=== PATIENT | female | born 1955 | race American Indian/Alaskan Native ===

== ENCOUNTER 2017-11-12 10:32 | Outpatient (CLI) | payer MEDICARE ==
--- NOTE | 2017-11-13 09:42 | Mammography Report ---
BILATERAL DIGITAL SCREENING MAMMOGRAM with CAD: 11/12/17 CLINICAL: Routine screening. COMPARISON:None available. However, a prior mammogram was apparently done at [facility]. FINDINGS: The breasts are heterogeneously dense, which may obscure small masses. A rightasymmetry on both views requires comparison with a prior mammogram or additional imaging.No architectural distortion or suspicious calcifications.The left breast is negative. IMPRESSION: Right focal asymmetry requiring further evaluation. BI-RADS CATEGORY: 0 -- Additional Evaluation Required RECOMMENDATION: Comparison with a previous mammogram. We will attempt to obtain a prior mammogram for comparison. If we do not obtain a prior mammogram within 30 days, a revised report will be issued recommending a recall for additional imaging. Please be advised that the patient should not schedule an appointment for return until adequate time (at least 2 weeks) has passed for us to obtain the prior mammogram. ACR BI-RADS MAMMOGRAPHIC CODES: 0 = Needs additional imaging evaluation; 1 = Negative; 2 = Benign; 3 = Probably benign; 4 = Suspicious; 5 = Malignant; 6 = Known biopsy-proven malignancy COMMENT: 1. Dense breast tissue, i.e., adenosis, fibrocystic changes, etc., may obscure an underlying neoplasm. 2. Approximately 10% of cancers are not detected with mammography. 3. A negative mammography report should not delay biopsy if a clinically suspicious mass is present. COMMENT: Patient follow-up letters are generated via our [employer] application.
== END 2017-11-12 10:33 | disposition home or self-care (01) ==
LOC: SPVWC 10:32
PROVIDERS: ATTEND Internal Medicine
DX: Z12.31 Encounter for screening mammogram for malignant neoplasm of breast (principal)
CPT/HCPCS: 77067

== ENCOUNTER 2017-12-10 09:38 | Outpatient (CLI) | payer MEDICARE ==
--- NOTE | 2017-12-10 10:22 | Mammography Report ---
RIGHT DIGITAL DIAGNOSTIC MAMMOGRAM : 12/10/17 09:38:00 CLINICAL: Recalled for asymmetry. COMPARISON:11/12/17 screening FINDINGS: Additional mammographic views were performed and are negative. IMPRESSION: Negative Mammogram. BI-RADS CATEGORY: 1 -- Negative RECOMMENDATION: Routine mammographic screening in one year. ACR BI-RADS MAMMOGRAPHIC CODES: 0 = Needs additional imaging evaluation; 1 = Negative; 2 = Benign; 3 = Probably benign; 4 = Suspicious; 5 = Malignant; 6 = Known biopsy-proven malignancy COMMENT: 1. Dense breast tissue, i.e., adenosis, fibrocystic changes, etc., may obscure an underlying neoplasm. 2. Approximately 10% of cancers are not detected with mammography. 3. A negative mammography report should not delay biopsy if a clinically suspicious mass is present. COMMENT: Patient follow-up letters are generated via our [employer] application.
== END 2017-12-10 09:39 | disposition home or self-care (01) ==
LOC: SPVWC 09:38
PROVIDERS: ATTEND Internal Medicine
DX: R92.8 Other abnormal and inconclusive findings on diagnostic imaging of breast (principal); I10 Essential (primary) hypertension; J44.1 Chronic obstructive pulmonary disease with (acute) exacerbation; Z87.891 Personal history of nicotine dependence

== ENCOUNTER 2018-03-01 14:18 | Inpatient (IN) | payer MEDICARE ==
[2018-03-01] MEDS ORDERED: ATROVENT IH ONE ×2 (14:41→14:44)
[2018-03-01] MEDS ORDERED: PROVENTIL IH ONE ×3 (14:41→14:44)
[2018-03-01] MEDS ORDERED: DUONEB *Not for PRN Use IH ONE (14:42)
--- NOTE | 2018-03-01 14:46 | Emergency Department Report ---
ED Shortness of Breath HPI - General Chief Complaint: Dyspnea/Respdistress Stated Complaint: YURIY Time Seen by Provider: 03/01/18 14:40 Source: patient, EMS Mode of arrival: Stretcher Limitations: No Limitations - History of Present Illness Initial Comments: Patient is 63 years old female with history of COPD. Patient presented to the ER complaining of shortness of breath and difficulty breathing cough nonproductive since last night. Patient is on oxygen at home 3 L/M. patient denied any fever, chest pain, nausea or vomiting. She stated that she's been using her albuterol breathing treatment but no improvement. MD Complaint: shortness of breath, cough - Related Data Home Medications Medication Instructions Recorded Confirmed Last Taken Budesoni/Formotero 160-4.5(Nf) 2 puff IH BID 07/31/15 07/31/15 1 Day Ago [Symbicort 160-4.5 (Nf)] ~07/30/15 Previous Rx's Medication Instructions Recorded Last Taken Type ALBUTEROL Inhaler (OR & NICU) 2 puff IH QID PRN 30 Days 04/29/15 1 Day Ago Rx [ProAir HFA Inhaler] inhalation ~07/30/15 dilTIAZem CD [Cardizem CD] 120 mg PO QDAY #30 capsule 04/29/15 07/31/15 Rx Doxycycline [Vibramycin CAP] 100 mg PO BID #12 capsule 08/03/15 Unknown Rx Prednisone [predniSONE 5 mg (6-Day 10 mg PO .TAPER #21 tab.ds.pk 08/03/15 Unknown Rx Pack, 21 Tabs)] Allergies Allergy/AdvReac Type Severity Reaction Status Date / Time codeine Allergy Unknown Verified 08/01/15 12:17 ED Review of Systems ROS: Stated complaint: YURIY Other details as noted in HPI Comment: All other systems reviewed and negative Constitutional: denies: chills, fever Respiratory: cough, orthopnea, shortness of breath, SOB with exertion, SOB at rest, wheezing. denies: stridor Cardiovascular: denies: chest pain, palpitations Gastrointestinal: denies: abdominal pain, nausea, vomiting, diarrhea, constipation, hematemesis Neurological: denies: headache, weakness ED Past Medical Hx - Past Medical History Hx Congestive Heart Failure: No Hx Diabetes: No Hx Asthma: No Hx COPD: Yes (Home O2 @ 3L) Additional medical history: Patient states she does not recall being given a diagnosis of SVT in the past. Patient states she was placed on diltiazem at one point, but thought it was for "blood clots." - Surgical History Additional Surgical History: 2: . Benign biopsy of left lung - Social History Smoking Status: Never Smoker Substance Use Type: None - Medications Home Medications: Home Medications Medication Instructions Recorded Confirmed Last Taken Type ALBUTEROL Inhaler (OR & NICU) 2 puff IH QID PRN 30 Days 04/29/15 07/31/15 1 Day Ago Rx [ProAir HFA Inhaler] inhalation ~07/30/15 dilTIAZem CD [Cardizem CD] 120 mg PO QDAY #30 capsule 04/29/15 07/31/15 Rx Budesoni/Formotero 160-4.5(Nf) 2 puff IH BID 07/31/15 07/31/15 1 Day Ago History [Symbicort 160-4.5 (Nf)] ~07/30/15 Doxycycline [Vibramycin CAP] 100 mg PO BID #12 capsule 08/03/15 Unknown Rx Prednisone [predniSONE 5 mg (6-Day 10 mg PO .TAPER #21 tab.ds.pk 08/03/15 Unknown Rx Pack, 21 Tabs)] ED Physical Exam - General Limitations: No Limitations General appearance: alert, in distress - Head Head exam: Present: atraumatic, normocephalic, normal inspection - Eye Eye exam: Present: normal appearance, PERRL - ENT ENT exam: Present: normal exam, normal orophraynx, mucous membranes moist - Neck Neck exam: Present: normal inspection, full ROM. Absent: tenderness, meningismus, lymphadenopathy, thyromegaly - Respiratory Respiratory exam: Present: respiratory distress, wheezes, rales, rhonchi, accessory muscle use, decreased breath sounds, prolonged expiratory. Absent: stridor - Cardiovascular Cardiovascular Exam: Present: regular rate, normal rhythm, normal heart sounds - GI/Abdominal GI/Abdominal exam: Present: soft, normal bowel sounds. Absent: distended, tenderness, guarding, rebound, rigid, organomegaly, mass, bruit, pulsatile mass , hernia - Extremities Exam Extremities exam: Present: normal inspection, full ROM, normal capillary refill. Absent: pedal edema, calf tenderness - Neurological Exam Neurological exam: Present: alert, oriented X3, CN II-XII intact, normal gait, reflexes normal - Skin Skin exam: Present: warm, intact, normal color ED Course Vital Signs 03/01/18 03/01/18 03/01/18 14:36 14:38 14:47 Temperature 97.6 F Pulse Rate 72 71 Pulse Rate [ 76 Anterior Bilateral Throughout] Respiratory 19 19 Rate Respiratory 22 Rate [Anterior Bilateral Throughout] Blood Pressure 159/74 Blood Pressure [Right] O2 Sat by Pulse 99 98 Oximetry 03/01/18 03/01/18 03/01/18 15:00 15:07 15:14 Temperature Pulse Rate 68 71 Pulse Rate [ Anterior Bilateral Throughout] Respiratory 18 24 18 Rate Respiratory Rate [Anterior Bilateral Throughout] Blood Pressure 141/53 141/53 Blood Pressure 141/53 [Right] O2 Sat by Pulse 100 100 100 Oximetry ED Medical Decision Making - Lab Data Result diagrams: 03/01/18 14:49 03/01/18 14:49 - Radiology Data Radiology results: image reviewed Chest x-ray is unremarkable. - Medical Decision Making Patient is 63 years old female with history of COPD. Patient presented to the ER complaining of shortness of breath and difficulty breathing cough nonproductive since last night. Patient is on oxygen at home 3 L/M. patient denied any fever, chest pain, nausea or vomiting. She stated that she's been using her albuterol breathing treatment but no improvement. Patient ABG showed a PCO2 of 121. Patient put on BiPAP. Patient stated that she is feeling better with oxygen saturation of 96%. I discussed the patient with Dr Lebron, he agreed to admit the patient to medical service. Critical Care Time: Yes Critical care time in (mins) excluding proc time.: 30 Critical care attestation.: If time is entered above; I have spent that time in minutes in the direct care of this critically ill patient, excluding procedure time. ED Disposition Clinical Impression: Acute respiratory failure, COPD with exacerbation Disposition: OP ADMIT IP TO THIS HOSP Is pt being admited?: Yes Condition: Stable Instructions: Chronic Obstructive Pulmonary Disease (ED)
[2018-03-01] MEDS ORDERED: SOLU-Medrol IV ONE (14:47)
[2018-03-01 15:29] LABS: Basophils % (Auto) 0.5 % (0.0-1.8); Eosinophils % (Auto) 1.4 % (0.0-4.3); Hematocrit 36.4 % (30.3-42.9); Hemoglobin 11.5 gm/dl (10.1-14.3); Lymphocytes # (Auto) 2.9 K/mm3 (1.2-5.4); Lymphocytes % (Auto) 24.9 % (13.4-35.0); Mean Corpuscular HGB Conc 32 % (30-34); Mean Corpuscular Hemoglobin 29 pg (28-32); Mean Corpuscular Volume 92 fl (79-97); Monocytes # (Auto) 1.3 K/mm3 (0.0-0.8); Monocytes % (Auto) 11.3 % (0.0-7.3); Platelet Count 193 K/mm3 (140-440); Red Blood Count 3.95 M/mm3 (3.65-5.03); Red Cell Distribution Width 13.4 % (13.2-15.2)
[2018-03-01 15:30] LABS: Basophils # (Auto) 0.1 K/mm3 (0.0-0.1); Eosinophils # (Auto) 0.2 K/mm3 (0.0-0.4)
[2018-03-01 16:07] LABS: Alanine Aminotransferase 14 units/L (7-56); Albumin 4.4 g/dL (3.9-5); BUN/Creatinine Ratio 50; Blood Urea Nitrogen 10 mg/dL (7-17); Calcium 9.8 mg/dL (8.4-10.2); Hemolysis Index 23
--- NOTE | 2018-03-01 16:19 | History and Physical Report ---
History of Present Illness Chief complaint: I cant breathe History of present illness: 63 YO Female with Severe Malnutrition, COPD, Chronic Respiratory Failure on 3L Home Oxygen presents to ED for evaluation. Pt states that she has experienced shortness of breath over the past 3 days with worsening symptoms over the past 1 day. Pt acknowledges dypsnea on exertion, as well as dypsnea at rest, decreased exercise tolerance, increased nonproductive cough, as well as increased use of her nebulizer over the past 3 days without improvement in symptoms. EMS notified, and upon arrival the patient was found to be in respiratory distress. Pt transported to [facility] for further care and evaluation. Pt seen and evaluated in ED and found to have Hypercapnic Respiratory Failure, and well as COPD Exacerbation. Pt initiated on NIPPV with significant improvement in symptoms. Pt Admitted to medical floor. Pt denies fever, chills, CP, Palpitations, Headache, Trauma, recent ill contacts, skin rash, or known exposure to COPD triggers. Past History Past Medical History: COPD, other (Respiratory failure, malnutrition') Past Surgical History: , Other (lung biopsy) Social history: single. denies: smoking, alcohol abuse, prescription drug abuse Family history: hypertension Medications and Allergies Allergies Allergy/AdvReac Type Severity Reaction Status Date / Time codeine Allergy Unknown Verified 08/01/15 12:17 Home Medications Medication Instructions Recorded Confirmed Last Taken Type ALBUTEROL Inhaler (OR & NICU) 2 puff IH QID PRN 30 Days 04/29/15 07/31/15 1 Day Ago Rx [ProAir HFA Inhaler] inhalation ~07/30/15 dilTIAZem CD [Cardizem CD] 120 mg PO QDAY #30 capsule 04/29/15 07/31/15 Rx Budesoni/Formotero 160-4.5(Nf) 2 puff IH BID 07/31/15 07/31/15 1 Day Ago History [Symbicort 160-4.5 (Nf)] ~07/30/15 Doxycycline [Vibramycin CAP] 100 mg PO BID #12 capsule 08/03/15 Unknown Rx Prednisone [predniSONE 5 mg (6-Day 10 mg PO .TAPER #21 tab.ds.pk 08/03/15 Unknown Rx Pack, 21 Tabs)] Review of Systems Constitutional: no weight loss, no weight gain, no fever, no chills Ears, nose, mouth and throat: no ear pain, no ear discharge, no tinnitis, no decreased hearing, no nose pain, no nasal congestion, no nasal discharge Breasts: no change in shape, no swelling, no mass Cardiovascular: shortness of breath, no chest pain, no orthopnea, no palpitations, no rapid/irregular heart beat, no syncope Respiratory: no cough, no cough with sputum, no excessive sputum, no hemoptysis Gastrointestinal: no nausea, no vomiting, no diarrhea, no constipation, no change in bowel habits Genitourinary Female: no pelvic pain, no flank pain, no menorrhagia, no dysuria , no urinary frequency, no urgency Rectal: no pain, no incontinence, no bleeding Musculoskeletal: no neck stiffness, no neck pain, no shooting arm pain, no arm numbness/tingling, no low back pain, no shooting leg pain Integumentary: no rash, no pruritis, no redness, no sores, no wounds Neurological: no paralysis, no weakness, no parathesias, no numbness, no tingling Psychiatric: no anxiety, no memory loss, no change in sleep habits, no sleep disturbances, no insomnia, no hypersomnia, no change in appetite, no change in libido Endocrine: no cold intolerance, no heat intolerance, no polyphagia, no excessive thirst, no polyuria Hematologic/Lymphatic: no easy bruising, no easy bleeding, no lymphadenopathy, no lymphedema Allergic/Immunologic: no urticaria, no allergic rhinitis, no wheezing, no persistent infections, no anaphylaxis, no angioedema Exam - Constitutional Vitals: Temp Pulse Resp BP Pulse Ox 97.6 F 71 18 141/53 100 03/01/18 14:38 03/01/18 15:07 03/01/18 15:14 03/01/18 15:07 03/01/18 15:14 General appearance: Present: mild distress, cachectic - EENT Eyes: Present: PERRL ENT: hearing intact, clear oral mucosa - Neck Neck: Present: supple, normal ROM - Respiratory Respiratory effort: normal Respiratory: bilateral: diminished, rhonchi - Cardiovascular Heart Sounds: Present: S1 & S2. Absent: rub, click - Extremities Extremities: pulses symmetrical, No edema Peripheral Pulses: within normal limits - Abdominal General gastrointestinal: Present: soft, non-tender, non-distended, normal bowel sounds Female genitourinary: Present: normal - Integumentary Integumentary: Present: clear, warm, dry - Musculoskeletal Musculoskeletal: generalized weakness - Psychiatric Psychiatric: appropriate mood/affect, intact judgment & insight - Neurologic Neurologic: CNII-XII intact, moves all extremities Results - Labs CBC & Chem 7: 03/01/18 14:49 03/01/18 14:49 Labs: Abnormal lab results 03/01/18 03/01/18 03/01/18 Range/Units 14:49 14:49 14:55 WBC 11.7 H (4.5-11.0) K/mm3 [place] % (Auto) 11.3 H (0.0-7.3) % [place] # 1.3 H (0.0-0.8) K/mm3 POC ABG pH 7.216 L (7.35-7.45) POC ABG pCO2 121.5 H (35-45) Chloride 92.2 L (98-107) mmol/L Carbon Dioxide 40 H (22-30) mmol/L Creatinine 0.2 L (0.7-1.2) mg/dL Glucose 142 H (65-100) mg/dL Assessment and Plan - Patient Problems (1) Acute respiratory failure Current Visit: Yes Status: Acute Plan to address problem: NIPPV, Supplemental oxygen, nebulizer therapy, Serial ABG. Pt symptoms improved with therapy, D dimer, (2) Severe malnutrition Current Visit: Yes Status: Acute Plan to address problem: Encourage increased protein intake, (3) COPD exacerbation Current Visit: No Status: Acute Plan to address problem: IV steroid therapy, supplemental oxygen, IV antibiotic therpay, NIPPV, ABG, chest x ray, supportive care. (4) DVT prophylaxis Current Visit: No Status: Acute Plan to address problem: SCD to BLE while in bed.
--- NOTE | 2018-03-01 17:25 | XRay Report ---
FINAL REPORT PROCEDURE: Chest. TECHNIQUE: Portable AP view. HISTORY: Dyspnea. COMPARISON: Chest 08/02/2015. FINDINGS: The heart size is normal. There is calcification in the aortic arch. The lungs are clear and severely hyperinflated. There are surgical johanne in the left lung. There are no pleural effusions. The soft tissues and regional skeleton are unremarkable. IMPRESSION: Severe COPD.
[2018-03-01] MEDS ORDERED: SODIUM CHLORIDE FLUSH SYRINGE 10 ML IV PRN (17:33)
[2018-03-01] MEDS ORDERED: ZOFRAN IV PRN (17:33)
[2018-03-01] MEDS ORDERED: PROVENTIL IH PRN (17:33)
[2018-03-01] MEDS: ZITHROMAX 500 MG in NACL 0.9% 250ML 250 ML IV SCH (19:18)
[2018-03-01] MEDS ORDERED: ZOFRAN ONE (19:28)
[2018-03-01] MEDS: PULMICORT IH SCH (19:41)
[2018-03-01] MEDS ORDERED: PULMICORT IH ONE (19:42)
[2018-03-01] MEDS ORDERED: BROVANA NEBU IH ONE (19:42)
[2018-03-01] MEDS: BROVANA NEBU IH SCH (19:42)
--- NOTE | 2018-03-01 20:56 | Cat Scan Report ---
FINAL REPORT PROCEDURE: CT angiogram chest with contrast. TECHNIQUE: Computerized tomographic angiography of the chest was performed after the IV injection of iodinated nonionic contrast including image processing. The image data was postprocessed using 2-dimensional multiplanar reformatted (MPR) and 3-dimensional (MIP and/or volume rendered) techniques. HISTORY: Respiratory failure. COMPARISON: CT angiogram chest 08/02/2015. FINDINGS: The trachea and central bronchi appear normal. There are severe cystic changes in both lungs. These are worse in the upper lobes. There is severe bullous change in the right lung apex. There are no signs of pneumonia. There are no pleural effusions. The thoracic aorta has a normal caliber without evidence of dissection. The pulmonary arteries enhance normally. There are no filling defects to indicate pulmonary embolism. There is no mediastinal adenopathy. The heart size is normal. The adrenal glands are not enlarged. There are coarse calcifications in the upper pole of the right kidney. The thoracic skeleton appears intact. IMPRESSION: No evidence of pulmonary embolism. Severe bolus emphysema.
[2018-03-01] MEDS: PEPCID PO SCH (21:28)
[2018-03-01] MEDS: SODIUM CHLORIDE FLUSH SYRINGE 10 ML IV SCH (21:37)
[2018-03-01] MEDS: SOLU-Medrol IV SCH (21:37)
[2018-03-01] MEDS ORDERED: NON-FORMULARY (Budesoni/Formotero 160-4.5(Nf) 2 PUFF) IH SCH (22:00)
[2018-03-02 05:43] LABS: Basophils % (Auto) 0.1 % (0.0-1.8); Hematocrit 33.3 % (30.3-42.9); Hemoglobin 10.8 gm/dl (10.1-14.3); Lymphocytes # (Auto) 0.6 K/mm3 (1.2-5.4); Lymphocytes % (Auto) 9.4 % (13.4-35.0); Mean Corpuscular HGB Conc 32 % (30-34); Mean Corpuscular Hemoglobin 29 pg (28-32); Mean Corpuscular Volume 91 fl (79-97); Monocytes # (Auto) 0.1 K/mm3 (0.0-0.8); Monocytes % (Auto) 1.2 % (0.0-7.3); Platelet Count 178 K/mm3 (140-440); Red Blood Count 3.66 M/mm3 (3.65-5.03); Red Cell Distribution Width 13.6 % (13.2-15.2)
[2018-03-02] MEDS: PULMICORT IH SCH ×2 (07:08→19:46)
[2018-03-02] MEDS: BROVANA NEBU IH SCH ×2 (07:09→19:46)
[2018-03-02] MEDS: CARDIZEM CD PO SCH (10:01)
[2018-03-02] MEDS: PEPCID PO SCH ×2 (10:01→21:44)
[2018-03-02] MEDS: SOLU-Medrol IV SCH ×2 (10:01→21:44)
[2018-03-02] MEDS: SODIUM CHLORIDE FLUSH SYRINGE 10 ML IV SCH ×2 (13:23→21:44)
--- NOTE | 2018-03-02 13:26 | Progress Note ---
Assessment and Plan / Acute on chronic respiratory failure on 3l home O2, worse due to COPD exacerbation NIPPV as needed, cont Supplemental oxygen, nebulizer therapy, / Severe malnutrition Encourage increased protein intake, /Acute COPD exacerbation IV steroid therapy, supplemental oxygen, IV antibiotic therpay, NIPPV as needed /DVT prophylaxis SCD to BLE while in bed. Radiological data; CTA chest: No evidence of pulmonary embolism. Severe bolus emphysema. Subjective Date of service: 03/02/18 Interval history: Pt seen and examined states SOB much better today Off Bipap this am Objective - Constitutional Vitals: Vital Signs - 12hr 03/02/18 03/02/18 03/02/18 01:30 01:40 01:50 Temperature Pulse Rate 67 70 66 Pulse Rate [ Anterior Bilateral Throughout] Pulse Rate [ From Monitor] Respiratory 16 18 16 Rate Respiratory Rate [Anterior Bilateral Throughout] Blood Pressure 109/67 109/67 109/67 O2 Sat by Pulse 98 100 99 Oximetry 03/02/18 03/02/18 03/02/18 02:00 02:10 02:20 Temperature Pulse Rate 65 69 72 Pulse Rate [ Anterior Bilateral Throughout] Pulse Rate [ From Monitor] Respiratory 18 18 16 Rate Respiratory Rate [Anterior Bilateral Throughout] Blood Pressure 109/67 112/69 112/69 O2 Sat by Pulse 99 99 100 Oximetry 03/02/18 03/02/18 03/02/18 02:30 02:40 02:50 Temperature Pulse Rate 71 73 75 Pulse Rate [ Anterior Bilateral Throughout] Pulse Rate [ From Monitor] Respiratory 18 18 18 Rate Respiratory Rate [Anterior Bilateral Throughout] Blood Pressure 112/69 112/69 112/69 O2 Sat by Pulse 100 99 100 Oximetry 03/02/18 03/02/18 03/02/18 03:00 03:10 03:20 Temperature Pulse Rate 70 68 71 Pulse Rate [ Anterior Bilateral Throughout] Pulse Rate [ From Monitor] Respiratory 18 19 15 Rate Respiratory Rate [Anterior Bilateral Throughout] Blood Pressure 102/69 102/69 102/69 O2 Sat by Pulse 100 100 99 Oximetry 03/02/18 03/02/18 03/02/18 03:30 03:40 03:50 Temperature Pulse Rate 65 69 68 Pulse Rate [ Anterior Bilateral Throughout] Pulse Rate [ From Monitor] Respiratory 20 17 18 Rate Respiratory Rate [Anterior Bilateral Throughout] Blood Pressure 102/69 102/69 102/69 O2 Sat by Pulse 98 98 99 Oximetry 03/02/18 03/02/18 03/02/18 04:00 04:10 04:16 Temperature Pulse Rate 67 70 66 Pulse Rate [ Anterior Bilateral Throughout] Pulse Rate [ From Monitor] Respiratory 18 18 18 Rate Respiratory Rate [Anterior Bilateral Throughout] Blood Pressure 103/61 103/61 103/61 O2 Sat by Pulse 100 100 99 Oximetry 03/02/18 03/02/18 03/02/18 04:20 04:30 04:40 Temperature 98.1 F Pulse Rate 72 73 70 Pulse Rate [ Anterior Bilateral Throughout] Pulse Rate [ From Monitor] Respiratory 16 14 17 Rate Respiratory Rate [Anterior Bilateral Throughout] Blood Pressure 103/61 102/69 102/69 O2 Sat by Pulse 99 100 100 Oximetry 03/02/18 03/02/18 03/02/18 04:50 05:00 05:10 Temperature Pulse Rate 71 67 69 Pulse Rate [ Anterior Bilateral Throughout] Pulse Rate [ From Monitor] Respiratory 17 9 L 18 Rate Respiratory Rate [Anterior Bilateral Throughout] Blood Pressure 102/69 115/70 115/70 O2 Sat by Pulse 100 100 100 Oximetry 03/02/18 03/02/18 03/02/18 05:20 05:30 05:40 Temperature Pulse Rate 66 68 69 Pulse Rate [ Anterior Bilateral Throughout] Pulse Rate [ From Monitor] Respiratory 18 18 18 Rate Respiratory Rate [Anterior Bilateral Throughout] Blood Pressure 115/70 115/70 115/70 O2 Sat by Pulse 100 100 100 Oximetry 03/02/18 03/02/18 03/02/18 05:50 06:00 06:10 Temperature Pulse Rate 67 67 66 Pulse Rate [ Anterior Bilateral Throughout] Pulse Rate [ From Monitor] Respiratory 14 13 13 Rate Respiratory Rate [Anterior Bilateral Throughout] Blood Pressure 115/70 101/67 101/67 O2 Sat by Pulse 99 99 97 Oximetry 03/02/18 03/02/18 03/02/18 06:20 06:30 06:40 Temperature Pulse Rate 62 65 57 L Pulse Rate [ Anterior Bilateral Throughout] Pulse Rate [ From Monitor] Respiratory 19 15 11 L Rate Respiratory Rate [Anterior Bilateral Throughout] Blood Pressure 101/67 101/67 101/67 O2 Sat by Pulse 99 100 100 Oximetry 03/02/18 03/02/18 03/02/18 06:50 07:00 07:05 Temperature Pulse Rate 63 56 L 67 Pulse Rate [ Anterior Bilateral Throughout] Pulse Rate [ From Monitor] Respiratory 13 18 19 Rate Respiratory Rate [Anterior Bilateral Throughout] Blood Pressure 101/67 101/67 131/73 O2 Sat by Pulse 100 100 100 Oximetry 03/02/18 03/02/18 03/02/18 07:10 07:20 07:25 Temperature Pulse Rate 68 86 Pulse Rate [ 78 99 H Anterior Bilateral Throughout] Pulse Rate [ From Monitor] Respiratory 18 19 Rate Respiratory 18 20 Rate [Anterior Bilateral Throughout] Blood Pressure 131/73 131/73 O2 Sat by Pulse 100 98 Oximetry 03/02/18 03/02/18 03/02/18 07:30 07:31 07:40 Temperature Pulse Rate 99 H 88 Pulse Rate [ Anterior Bilateral Throughout] Pulse Rate [ From Monitor] Respiratory 25 H 18 Rate Respiratory Rate [Anterior Bilateral Throughout] Blood Pressure 131/73 131/73 O2 Sat by Pulse 92 94 99 Oximetry 03/02/18 03/02/18 03/02/18 07:50 08:00 08:10 Temperature 97.7 F Pulse Rate 76 84 68 Pulse Rate [ Anterior Bilateral Throughout] Pulse Rate [ From Monitor] Respiratory 16 22 16 Rate Respiratory Rate [Anterior Bilateral Throughout] Blood Pressure 131/73 112/67 112/67 O2 Sat by Pulse 100 100 100 Oximetry 03/02/18 03/02/18 03/02/18 08:20 08:30 08:40 Temperature Pulse Rate 67 64 60 Pulse Rate [ Anterior Bilateral Throughout] Pulse Rate [ From Monitor] Respiratory 15 18 16 Rate Respiratory Rate [Anterior Bilateral Throughout] Blood Pressure 112/67 112/67 112/67 O2 Sat by Pulse 100 100 100 Oximetry 03/02/18 03/02/18 03/02/18 08:50 09:00 09:10 Temperature Pulse Rate 106 H 96 H 82 Pulse Rate [ Anterior Bilateral Throughout] Pulse Rate [ From Monitor] Respiratory 14 14 15 Rate Respiratory Rate [Anterior Bilateral Throughout] Blood Pressure 112/67 100/66 100/66 O2 Sat by Pulse 100 100 99 Oximetry 03/02/18 03/02/18 03/02/18 09:20 09:30 09:40 Temperature Pulse Rate 60 60 68 Pulse Rate [ Anterior Bilateral Throughout] Pulse Rate [ From Monitor] Respiratory 17 17 20 Rate Respiratory Rate [Anterior Bilateral Throughout] Blood Pressure 100/66 100/66 100/66 O2 Sat by Pulse 100 100 100 Oximetry 03/02/18 03/02/18 03/02/18 09:50 10:00 10:01 Temperature Pulse Rate 68 67 82 Pulse Rate [ Anterior Bilateral Throughout] Pulse Rate [ 85 From Monitor] Respiratory 17 17 Rate Respiratory Rate [Anterior Bilateral Throughout] Blood Pressure 100/66 101/57 101/58 O2 Sat by Pulse 100 100 Oximetry 03/02/18 03/02/18 03/02/18 10:10 10:20 10:30 Temperature Pulse Rate 67 64 67 Pulse Rate [ Anterior Bilateral Throughout] Pulse Rate [ From Monitor] Respiratory 16 17 16 Rate Respiratory Rate [Anterior Bilateral Throughout] Blood Pressure 101/57 101/57 101/57 O2 Sat by Pulse 100 100 100 Oximetry 03/02/18 03/02/18 03/02/18 10:40 10:50 11:00 Temperature Pulse Rate 68 63 62 Pulse Rate [ Anterior Bilateral Throughout] Pulse Rate [ From Monitor] Respiratory 19 15 19 Rate Respiratory Rate [Anterior Bilateral Throughout] Blood Pressure 101/57 101/57 102/48 O2 Sat by Pulse 100 100 100 Oximetry 03/02/18 03/02/18 03/02/18 11:10 11:20 11:30 Temperature Pulse Rate 65 63 64 Pulse Rate [ Anterior Bilateral Throughout] Pulse Rate [ From Monitor] Respiratory 18 19 17 Rate Respiratory Rate [Anterior Bilateral Throughout] Blood Pressure 102/48 102/48 102/48 O2 Sat by Pulse 100 100 100 Oximetry 03/02/18 03/02/18 03/02/18 11:40 11:50 12:00 Temperature 99.3 F Pulse Rate 66 81 84 Pulse Rate [ Anterior Bilateral Throughout] Pulse Rate [ From Monitor] Respiratory 15 20 19 Rate Respiratory Rate [Anterior Bilateral Throughout] Blood Pressure 102/48 102/48 107/53 O2 Sat by Pulse 100 100 99 Oximetry 03/02/18 03/02/18 03/02/18 12:10 12:20 12:30 Temperature Pulse Rate 73 76 80 Pulse Rate [ Anterior Bilateral Throughout] Pulse Rate [ From Monitor] Respiratory 16 15 20 Rate Respiratory Rate [Anterior Bilateral Throughout] Blood Pressure 107/53 107/53 107/53 O2 Sat by Pulse 100 100 100 Oximetry 03/02/18 03/02/18 03/02/18 12:40 12:50 13:00 Temperature Pulse Rate 83 77 75 Pulse Rate [ Anterior Bilateral Throughout] Pulse Rate [ From Monitor] Respiratory 16 19 18 Rate Respiratory Rate [Anterior Bilateral Throughout] Blood Pressure 107/53 107/53 113/50 O2 Sat by Pulse 100 100 100 Oximetry 03/02/18 13:10 Temperature Pulse Rate 79 Pulse Rate [ Anterior Bilateral Throughout] Pulse Rate [ From Monitor] Respiratory 20 Rate Respiratory Rate [Anterior Bilateral Throughout] Blood Pressure 113/50 O2 Sat by Pulse 100 Oximetry General appearance: Present: no acute distress, other (elderly female terry and thin ) - EENT Eyes: PERRL, EOM intact ENT: hearing intact, clear oral mucosa Ears: bilateral: normal - Neck Neck: supple, normal ROM - Respiratory Respiratory effort: normal Respiratory: bilateral: diminished - Cardiovascular Rhythm: regular Heart Sounds: Present: S1 & S2. Absent: gallop, rub Extremities: pulses intact, No edema, normal color, Full ROM - Gastrointestinal General gastrointestinal: Present: soft, non-tender, non-distended, normal bowel sounds - Integumentary Integumentary: clear, warm, dry - Musculoskeletal Musculoskeletal: 1, strength equal bilaterally - Neurologic Neurologic: moves all extremities - Psychiatric Psychiatric: memory intact, appropriate mood/affect, intact judgment & insight - Labs CBC & Chem 7: 03/02/18 05:24 03/01/18 14:49 Labs: Abnormal lab results 03/01/18 03/01/18 03/01/18 Range/Units 14:49 14:49 14:55 WBC 11.7 H (4.5-11.0) K/mm3 Lymph % (Auto) (13.4-35.0) % [place] % (Auto) 11.3 H (0.0-7.3) % Lymph # (1.2-5.4) K/mm3 [place] # 1.3 H (0.0-0.8) K/mm3 Seg Neutrophils % (40.0-70.0) % D-Dimer (0-234) ng/mlDDU POC ABG pH 7.216 L (7.35-7.45) POC ABG pCO2 121.5 H (35-45) POC ABG pO2 (80-105) Chloride 92.2 L (98-107) mmol/L Carbon Dioxide 40 H (22-30) mmol/L Creatinine 0.2 L (0.7-1.2) mg/dL Glucose 142 H (65-100) mg/dL 03/01/18 03/01/18 03/02/18 Range/Units 16:30 16:46 05:24 WBC (4.5-11.0) K/mm3 Lymph % (Auto) 9.4 L (13.4-35.0) % [place] % (Auto) (0.0-7.3) % Lymph # 0.6 L (1.2-5.4) K/mm3 [place] # (0.0-0.8) K/mm3 Seg Neutrophils % 89.3 H (40.0-70.0) % D-Dimer 420.58 H (0-234) ng/mlDDU POC ABG pH 7.316 L (7.35-7.45) POC ABG pCO2 96.4 H (35-45) POC ABG pO2 66 L (80-105) Chloride (98-107) mmol/L Carbon Dioxide (22-30) mmol/L Creatinine (0.7-1.2) mg/dL Glucose (65-100) mg/dL
[2018-03-02] MEDS: TYLENOL PO PRN ×2 (13:28→22:26)
[2018-03-02] MEDS: ZITHROMAX 500 MG in NACL 0.9% 250ML 250 ML IV SCH (18:04)
[2018-03-03] MEDS: BROVANA NEBU IH SCH ×2 (07:21→19:54)
[2018-03-03] MEDS: PULMICORT IH SCH ×2 (07:21→19:54)
[2018-03-03] MEDS: PEPCID PO SCH ×2 (09:52→21:32)
[2018-03-03] MEDS: CARDIZEM CD PO SCH (09:52)
[2018-03-03] MEDS: TYLENOL PO PRN (09:53)
[2018-03-03] MEDS: SODIUM CHLORIDE FLUSH SYRINGE 10 ML IV SCH ×2 (09:53→21:33)
[2018-03-03] MEDS: SOLU-Medrol IV SCH ×2 (09:53→21:32)
[2018-03-03] MEDS ORDERED: TYLENOL #3 PO PRN (15:39)
[2018-03-03] MEDS ORDERED: MORPHINE IV PRN (16:09)
--- NOTE | 2018-03-03 16:10 | Progress Note ---
Assessment and Plan / Acute on chronic respiratory failure on 3l home O2, worse due to COPD exacerbation NIPPV as needed, cont Supplemental oxygen, nebulizer therapy, / Severe malnutrition Encourage increased protein intake, /Acute COPD exacerbation IV steroid therapy, supplemental oxygen, IV antibiotic therapy, NIPPV as needed /HLD, on statin /DVT prophylaxis SCD to BLE while in bed. Brief History: 63 YO Female with Severe Malnutrition, COPD, Chronic Respiratory Failure on 3L Home Oxygen presents to ED c/o shortness of breath for last 3 days Radiological data; CTA chest: No evidence of pulmonary embolism. Severe bolus emphysema. Subjective Date of service: 03/03/18 Interval history: Pt seen and examined states SOB getting better but worses with exertion Off Bipap now, c/o headache Objective - Constitutional Vitals: Vital Signs - 12hr 03/03/18 03/03/18 03/03/18 04:10 04:20 04:30 Temperature Pulse Rate 46 L 47 L 49 L Pulse Rate [ Anterior Bilateral Throughout] Pulse Rate [ From Monitor] Respiratory 16 18 16 Rate Respiratory Rate [Anterior Bilateral Throughout] Respiratory Rate [Head] Blood Pressure 115/66 104/63 107/61 O2 Sat by Pulse 97 98 96 Oximetry 03/03/18 03/03/18 03/03/18 04:40 04:50 05:00 Temperature Pulse Rate 50 L 49 L 63 Pulse Rate [ Anterior Bilateral Throughout] Pulse Rate [ From Monitor] Respiratory 18 18 17 Rate Respiratory Rate [Anterior Bilateral Throughout] Respiratory Rate [Head] Blood Pressure 107/61 107/61 128/83 O2 Sat by Pulse 97 95 97 Oximetry 03/03/18 03/03/18 03/03/18 05:10 05:20 05:30 Temperature Pulse Rate 62 61 59 L Pulse Rate [ Anterior Bilateral Throughout] Pulse Rate [ From Monitor] Respiratory 18 20 18 Rate Respiratory Rate [Anterior Bilateral Throughout] Respiratory Rate [Head] Blood Pressure 128/83 128/83 128/83 O2 Sat by Pulse 95 96 99 Oximetry 03/03/18 03/03/18 03/03/18 05:40 05:50 06:00 Temperature Pulse Rate 60 63 75 Pulse Rate [ Anterior Bilateral Throughout] Pulse Rate [ From Monitor] Respiratory 20 18 15 Rate Respiratory Rate [Anterior Bilateral Throughout] Respiratory Rate [Head] Blood Pressure 133/65 133/65 113/75 O2 Sat by Pulse 99 95 97 Oximetry 1003/03/18 03/03/18 06:10 06:20 06:30 Temperature Pulse Rate 61 57 L 59 L Pulse Rate [ Anterior Bilateral Throughout] Pulse Rate [ From Monitor] Respiratory 22 17 13 Rate Respiratory Rate [Anterior Bilateral Throughout] Respiratory Rate [Head] Blood Pressure 113/75 113/75 115/66 O2 Sat by Pulse 97 97 95 Oximetry 03/03/18 03/03/18 03/03/18 06:40 06:50 07:00 Temperature Pulse Rate 78 94 H 69 Pulse Rate [ Anterior Bilateral Throughout] Pulse Rate [ From Monitor] Respiratory 18 21 16 Rate Respiratory Rate [Anterior Bilateral Throughout] Respiratory Rate [Head] Blood Pressure 115/66 115/66 127/70 O2 Sat by Pulse 95 89 97 Oximetry 03/03/18 03/03/18 03/03/18 07:10 07:20 07:22 Temperature Pulse Rate 64 88 Pulse Rate [ 72 Anterior Bilateral Throughout] Pulse Rate [ From Monitor] Respiratory 18 22 Rate Respiratory 20 Rate [Anterior Bilateral Throughout] Respiratory Rate [Head] Blood Pressure 127/70 127/70 O2 Sat by Pulse 97 90 Oximetry 03/03/18 03/03/18 03/03/18 07:30 07:34 07:40 Temperature Pulse Rate 67 70 Pulse Rate [ 74 Anterior Bilateral Throughout] Pulse Rate [ From Monitor] Respiratory 20 18 Rate Respiratory 16 Rate [Anterior Bilateral Throughout] Respiratory Rate [Head] Blood Pressure 127/70 111/75 O2 Sat by Pulse 100 100 Oximetry 03/03/18 03/03/18 03/03/18 07:47 07:50 08:00 Temperature 98.1 F Pulse Rate 71 65 Pulse Rate [ Anterior Bilateral Throughout] Pulse Rate [ 59 L From Monitor] Respiratory 17 18 Rate Respiratory Rate [Anterior Bilateral Throughout] Respiratory Rate [Head] Blood Pressure 111/75 109/53 O2 Sat by Pulse 100 100 Oximetry 03/03/18 03/03/18 03/03/18 08:10 08:20 08:30 Temperature Pulse Rate 100 H 76 67 Pulse Rate [ Anterior Bilateral Throughout] Pulse Rate [ From Monitor] Respiratory 17 19 18 Rate Respiratory Rate [Anterior Bilateral Throughout] Respiratory Rate [Head] Blood Pressure 109/53 109/53 103/60 O2 Sat by Pulse 100 99 100 Oximetry 03/03/18 03/03/18 03/03/18 08:40 08:50 09:00 Temperature Pulse Rate 66 65 74 Pulse Rate [ Anterior Bilateral Throughout] Pulse Rate [ From Monitor] Respiratory 17 21 19 Rate Respiratory Rate [Anterior Bilateral Throughout] Respiratory Rate [Head] Blood Pressure 103/60 103/60 101/54 O2 Sat by Pulse 100 100 100 Oximetry 03/03/18 03/03/18 03/03/18 09:10 09:20 09:30 Temperature Pulse Rate 63 67 64 Pulse Rate [ Anterior Bilateral Throughout] Pulse Rate [ From Monitor] Respiratory 22 17 18 Rate Respiratory Rate [Anterior Bilateral Throughout] Respiratory Rate [Head] Blood Pressure 101/54 101/54 101/54 O2 Sat by Pulse 100 100 100 Oximetry 03/03/18 03/03/18 03/03/18 09:40 09:50 09:52 Temperature Pulse Rate 69 74 77 Pulse Rate [ Anterior Bilateral Throughout] Pulse Rate [ From Monitor] Respiratory 15 22 Rate Respiratory Rate [Anterior Bilateral Throughout] Respiratory Rate [Head] Blood Pressure 108/49 108/49 108/49 O2 Sat by Pulse 100 100 Oximetry 03/03/18 03/03/18 03/03/18 10:00 10:10 10:20 Temperature Pulse Rate 85 69 75 Pulse Rate [ Anterior Bilateral Throughout] Pulse Rate [ From Monitor] Respiratory 15 17 17 Rate Respiratory Rate [Anterior Bilateral Throughout] Respiratory 20 Rate [Head] Blood Pressure 111/73 111/73 111/73 O2 Sat by Pulse 99 100 100 Oximetry 03/03/18 03/03/18 03/03/18 10:30 10:40 10:50 Temperature Pulse Rate 70 77 77 Pulse Rate [ Anterior Bilateral Throughout] Pulse Rate [ From Monitor] Respiratory 14 20 15 Rate Respiratory Rate [Anterior Bilateral Throughout] Respiratory Rate [Head] Blood Pressure 108/65 111/73 111/73 O2 Sat by Pulse 100 100 99 Oximetry 03/03/18 03/03/18 03/03/18 11:00 11:10 11:20 Temperature Pulse Rate 69 75 70 Pulse Rate [ Anterior Bilateral Throughout] Pulse Rate [ From Monitor] Respiratory 16 17 21 Rate Respiratory Rate [Anterior Bilateral Throughout] Respiratory Rate [Head] Blood Pressure 105/56 108/65 108/65 O2 Sat by Pulse 100 100 100 Oximetry 03/03/18 03/03/18 03/03/18 11:30 11:40 11:50 Temperature Pulse Rate 84 70 67 Pulse Rate [ Anterior Bilateral Throughout] Pulse Rate [ From Monitor] Respiratory 17 21 17 Rate Respiratory Rate [Anterior Bilateral Throughout] Respiratory Rate [Head] Blood Pressure 117/70 117/70 117/70 O2 Sat by Pulse 100 100 100 Oximetry 03/03/18 03/03/18 03/03/18 11:53 12:00 12:10 Temperature 98.7 F Pulse Rate 73 72 Pulse Rate [ Anterior Bilateral Throughout] Pulse Rate [ 64 From Monitor] Respiratory 23 22 Rate Respiratory Rate [Anterior Bilateral Throughout] Respiratory Rate [Head] Blood Pressure 117/70 117/60 O2 Sat by Pulse 100 100 Oximetry 03/03/18 03/03/18 03/03/18 12:20 12:30 12:40 Temperature Pulse Rate 92 H 84 73 Pulse Rate [ Anterior Bilateral Throughout] Pulse Rate [ From Monitor] Respiratory 24 22 15 Rate Respiratory Rate [Anterior Bilateral Throughout] Respiratory Rate [Head] Blood Pressure 117/60 122/58 122/58 O2 Sat by Pulse 99 99 99 Oximetry 03/03/18 03/03/18 03/03/18 12:50 13:00 13:10 Temperature Pulse Rate 74 68 80 Pulse Rate [ Anterior Bilateral Throughout] Pulse Rate [ From Monitor] Respiratory 16 16 22 Rate Respiratory Rate [Anterior Bilateral Throughout] Respiratory Rate [Head] Blood Pressure 122/58 114/58 114/58 O2 Sat by Pulse 100 100 100 Oximetry 03/03/18 03/03/18 03/03/18 13:20 13:30 13:40 Temperature Pulse Rate 77 87 93 H Pulse Rate [ Anterior Bilateral Throughout] Pulse Rate [ From Monitor] Respiratory 26 H 30 H 20 Rate Respiratory Rate [Anterior Bilateral Throughout] Respiratory Rate [Head] Blood Pressure 114/58 114/58 121/49 O2 Sat by Pulse 100 100 99 Oximetry 03/03/18 03/03/18 03/03/18 13:50 14:00 14:10 Temperature Pulse Rate 85 89 79 Pulse Rate [ Anterior Bilateral Throughout] Pulse Rate [ From Monitor] Respiratory 22 20 19 Rate Respiratory Rate [Anterior Bilateral Throughout] Respiratory Rate [Head] Blood Pressure 121/61 111/67 111/67 O2 Sat by Pulse 100 100 99 Oximetry 03/03/18 03/03/18 03/03/18 14:20 14:30 14:40 Temperature Pulse Rate 76 81 77 Pulse Rate [ Anterior Bilateral Throughout] Pulse Rate [ From Monitor] Respiratory 19 19 22 Rate Respiratory Rate [Anterior Bilateral Throughout] Respiratory Rate [Head] Blood Pressure 111/67 112/67 111/67 O2 Sat by Pulse 100 99 100 Oximetry 03/03/18 03/03/18 03/03/18 14:50 15:00 15:10 Temperature Pulse Rate 78 86 82 Pulse Rate [ Anterior Bilateral Throughout] Pulse Rate [ From Monitor] Respiratory 19 17 18 Rate Respiratory Rate [Anterior Bilateral Throughout] Respiratory Rate [Head] Blood Pressure 111/67 111/67 112/67 O2 Sat by Pulse 100 100 100 Oximetry 03/03/18 03/03/18 15:20 15:30 Temperature Pulse Rate 83 91 H Pulse Rate [ Anterior Bilateral Throughout] Pulse Rate [ From Monitor] Respiratory 19 18 Rate Respiratory Rate [Anterior Bilateral Throughout] Respiratory Rate [Head] Blood Pressure 112/67 115/73 O2 Sat by Pulse 100 100 Oximetry - Labs CBC & Chem 7: 03/02/18 05:24 03/01/18 14:49
[2018-03-03] MEDS: FIORICET PO PRN (16:41)
[2018-03-03] MEDS: MIRALAX 3350 PO SCH (19:19)
[2018-03-03] MEDS: DUONEB *Not for PRN Use IH SCH (19:54)
[2018-03-03] MEDS: PRAVACHOL PO SCH (21:31)
[2018-03-03] MEDS: COLACE PO SCH (21:32)
[2018-03-03] MEDS ORDERED: NON-FORMULARY (Simvastatin [Simvastatin] 40 MG) PO SCH (22:00)
[2018-03-04] MEDS: DUONEB *Not for PRN Use IH SCH ×4 (02:05→20:06)
[2018-03-04] MEDS: PULMICORT IH SCH ×2 (08:46→20:06)
[2018-03-04] MEDS: BROVANA NEBU IH SCH ×2 (08:47→20:06)
[2018-03-04] MEDS: LEVAQUIN 750MG/150ML 750 MG/150 ML BAG IV SCH (09:12)
[2018-03-04] MEDS: SOLU-Medrol IV SCH ×2 (09:12→21:31)
[2018-03-04] MEDS: COLACE PO SCH ×2 (09:13→21:31)
[2018-03-04] MEDS: MIRALAX 3350 PO SCH (09:13)
[2018-03-04] MEDS: PEPCID PO SCH ×2 (09:13→21:31)
[2018-03-04] MEDS: BABY ASPIRIN PO SCH (09:13)
[2018-03-04] MEDS: SODIUM CHLORIDE FLUSH SYRINGE 10 ML IV SCH ×2 (09:14→21:31)
[2018-03-04] MEDS: CARDIZEM CD PO SCH (09:15)
[2018-03-04] MEDS: FIORICET PO PRN ×2 (12:33→18:36)
--- NOTE | 2018-03-04 17:27 | Progress Note ---
Assessment and Plan Assessment and plan: 63 YO Female with Severe Malnutrition, COPD, Chronic Respiratory Failure on 3L Home Oxygen presents to ED c/o shortness of breath for last 3 days Acute on chronic respiratory failure on 3l home O2, worse due to COPD exacerbation NIPPV as needed, cont Supplemental oxygen, nebulizer therapy, Severe malnutrition Encourage increased protein intake, Acute COPD exacerbation IV steroid therapy, supplemental oxygen, IV antibiotic therapy, NIPPV as needed HLD, on statin DVT prophylaxis SCD to BLE while in bed. Radiological data; CTA chest: No evidence of pulmonary embolism. Severe bolus emphysema. History Interval history: Patient was seen and evaluated this morning, patient is complaining SOB, when I told her "I am going to discharge you" she said she feels SOB and couldn't finish sentences. Hospitalist Physical - Physical exam Narrative exam: Not in cardiopulmonary distress. The patient appeared well nourished and normally developed. Vital signs as documented. Head exam is unremarkable. No scleral icterus . Neck is without jugular venous distension, thyromegaly, or carotid bruits. Lungs are clear to auscultation. Cardiac exam reveals regular rate and Rhythm. First and second heart sounds normal. No murmurs, rubs or gallops. Abdominal exam reveals normal bowel sounds, no masses, no organomegaly and no aortic enlargement. Extremities are nonedematous and both femoral and pedal pulses are normal. [employer]: Alert and oriented 3. No focal weakness. - Constitutional Vitals: Temp Pulse Resp BP Pulse Ox 98.3 F 74 21 111/56 98 03/04/18 12:00 03/04/18 13:40 03/04/18 13:40 03/04/18 13:40 03/04/18 13:40 General appearance: Present: no acute distress, other (elderly female terry and thin ) Results - Labs CBC & Chem 7: 03/02/18 05:24 03/01/18 14:49 Labs: Laboratory Last Values WBC 6.0 K/mm3 (4.5-11.0) 03/02/18 05:24 RBC 3.66 M/mm3 (3.65-5.03) 03/02/18 05:24 Hgb 10.8 gm/dl (10.1-14.3) 03/02/18 05:24 Hct 33.3 % (30.3-42.9) 03/02/18 05:24 MCV 91 fl (79-97) 03/02/18 05:24 MCH 29 pg (28-32) 03/02/18 05:24 MCHC 32 % (30-34) 03/02/18 05:24 RDW 13.6 % (13.2-15.2) 03/02/18 05:24 Plt Count 178 K/mm3 (140-440) 03/02/18 05:24 Lymph % (Auto) 9.4 % (13.4-35.0) L 03/02/18 05:24 [place] % (Auto) 1.2 % (0.0-7.3) 03/02/18 05:24 Eos % (Auto) 0.0 % (0.0-4.3) 03/02/18 05:24 Baso % (Auto) 0.1 % (0.0-1.8) 03/02/18 05:24 Lymph # 0.6 K/mm3 (1.2-5.4) L 03/02/18 05:24 [place] # 0.1 K/mm3 (0.0-0.8) 03/02/18 05:24 Eos # 0.0 K/mm3 (0.0-0.4) 03/02/18 05:24 Baso # 0.0 K/mm3 (0.0-0.1) 03/02/18 05:24 Add Manual Diff Complete 03/01/18 14:49 Seg Neutrophils % 89.3 % (40.0-70.0) H 03/02/18 05:24 Seg Neutrophils # 5.3 K/mm3 (1.8-7.7) 03/02/18 05:24 D-Dimer 420.58 ng/mlDDU (0-234) H 03/01/18 16:30 POC ABG pH 7.316 (7.35-7.45) L 03/01/18 16:46 POC ABG pCO2 96.4 (35-45) H 03/01/18 16:46 POC ABG pO2 66 (80-105) L 03/01/18 16:46 POC ABG HCO3 49.2 03/01/18 16:46 POC ABG Total CO2 > 50 03/01/18 16:46 POC ABG O2 Sat 89 03/01/18 16:46 POC ABG Base Excess 23 03/01/18 16:46 FiO2 40 % 03/01/18 16:46 Sodium 142 mmol/L (137-145) 03/01/18 14:49 Potassium 4.2 mmol/L (3.6-5.0) 03/01/18 14:49 Chloride 92.2 mmol/L (98-107) L 03/01/18 14:49 Carbon Dioxide 40 mmol/L (22-30) H 03/01/18 14:49 Anion Gap 14 mmol/L 03/01/18 14:49 BUN 10 mg/dL (7-17) 03/01/18 14:49 Creatinine 0.2 mg/dL (0.7-1.2) L 03/01/18 14:49 Estimated GFR > 60 ml/min 03/01/18 14:49 BUN/Creatinine Ratio 50 % 03/01/18 14:49 Glucose 142 mg/dL (65-100) H 03/01/18 14:49 Calcium 9.8 mg/dL (8.4-10.2) 03/01/18 14:49 Total Bilirubin 0.30 mg/dL (0.1-1.2) 03/01/18 14:49 AST 22 units/L (5-40) 03/01/18 14:49 ALT 14 units/L (7-56) 03/01/18 14:49 Alkaline Phosphatase 50 units/L (35-129) 03/01/18 14:49 Troponin T < 0.010 ng/mL (0.00-0.029) 03/01/18 14:49 NT-Pro-B Natriuret Pep 79.83 pg/mL (0-900) 03/01/18 14:49 Total Protein 6.8 g/dL (6.3-8.2) 03/01/18 14:49 Albumin 4.4 g/dL (3.9-5) 03/01/18 14:49 Albumin/Globulin Ratio 1.8 % 03/01/18 14:49
[2018-03-04] MEDS: PRAVACHOL PO SCH (21:31)
[2018-03-05] MEDS: DUONEB *Not for PRN Use IH SCH ×3 (02:22→13:46)
[2018-03-05] MEDS: PULMICORT IH SCH (08:08)
[2018-03-05] MEDS: BROVANA NEBU IH SCH (08:08)
[2018-03-05] MEDS: SOLU-Medrol IV SCH (09:27)
[2018-03-05] MEDS: MIRALAX 3350 PO SCH (09:27)
[2018-03-05] MEDS: LEVAQUIN 750MG/150ML 750 MG/150 ML BAG IV SCH (09:27)
[2018-03-05] MEDS: BABY ASPIRIN PO SCH (09:28)
[2018-03-05] MEDS: PEPCID PO SCH (09:28)
[2018-03-05] MEDS: CARDIZEM CD PO SCH (09:28)
[2018-03-05] MEDS: COLACE PO SCH (09:28)
[2018-03-05] MEDS: SODIUM CHLORIDE FLUSH SYRINGE 10 ML IV SCH (09:29)
--- NOTE | 2018-03-05 09:29 | Discharge Summary ---
Providers - Providers Date of Admission: 03/01/18 17:33 Attending physician: BISI CASON MD Primary care physician: BAGGAGEMASTER Hospitalization Reason for admission: COPD exacerbation Condition: Stable Disposition: [id number]-06 HOME UNDER HOME HLTH Time spent for discharge: 32 minutes - Discharge Diagnoses (1) Acute and chronic respiratory failure Status: Acute (2) COPD with exacerbation Status: Acute (3) Severe malnutrition Status: Acute (4) Hyperlipidemia Status: Acute (5) Hypertension Status: Acute Qualifiers: Hypertension type: essential hypertension Qualified Code(s): I10 - Essential (primary) hypertension (6) Tobacco abuse Status: Acute Core Measure Documentation - Palliative Care Palliative Care/ Comfort Measures: Not Applicable - Core Measures Any of the following diagnoses?: none Exam - Physical Exam Narrative exam: Not in cardiopulmonary distress. The patient appeared well nourished and normally developed. Vital signs as documented. Head exam is unremarkable. No scleral icterus . Neck is without jugular venous distension, thyromegaly, or carotid bruits. Lungs are clear to auscultation. Cardiac exam reveals regular rate and Rhythm. First and second heart sounds normal. No murmurs, rubs or gallops. Abdominal exam reveals normal bowel sounds, no masses, no organomegaly and no aortic enlargement. Extremities are nonedematous and both femoral and pedal pulses are normal. 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 No focal weakness. - Constitutional Vitals: Temp Pulse Resp BP Pulse Ox 97.9 F 86 16 119/55 100 03/05/18 08:00 03/05/18 08:18 03/05/18 08:18 03/05/18 07:21 03/05/18 08:10 Plan Activity: no restrictions Weight Bearing Status: Full Weight Bearing Diet: low salt Special Instructions: home oxygen via Additional Instructions: follow up at [facility] in 1-2 weeks Follow up with: PRIMARY CAREMD [Primary Care Provider] - 7 Days Prescriptions: Butalb/Acetamin/Caff 50-325-40 [Fioricet] 1 tab PO Q4H PRN #20 tablet PRN Reason: Headache Docusate Sodium [Colace CAP] 100 mg PO BID #20 capsule Prednisone [predniSONE 10 mg (6-Day Pack, 21 Tabs)] 10 mg PO .TAPER #1 tab.ds.pk
[2018-03-05 11:17] VITALS: BP 101/58
== END 2018-03-05 13:15 | disposition home health service (06) | DRG 189 ==
LOC: ED 14:18 → IMCU 17:33
PROVIDERS: ADMIT Internal Medicine; ATTEND Internal Medicine
PROC: 4A033R1 Measurement of Arterial Saturation, Peripheral, Percutaneous Approach (ICD-10-PCS; principal; 2018-03-01)
PROC: 5A09357 Assistance with Respiratory Ventilation, Less than 24 Consecutive Hours, Continuous Positive Airway Pressure (ICD-10-PCS; 2018-03-01)
PROC: 5A09357 Assistance with Respiratory Ventilation, Less than 24 Consecutive Hours, Continuous Positive Airway Pressure (ICD-10-PCS; 2018-03-02)
PROC: 5A09357 Assistance with Respiratory Ventilation, Less than 24 Consecutive Hours, Continuous Positive Airway Pressure (ICD-10-PCS; 2018-03-03)
DX: J96.22 Acute and chronic respiratory failure with hypercapnia (principal); E43 Unspecified severe protein-calorie malnutrition; J44.1 Chronic obstructive pulmonary disease with (acute) exacerbation; E78.5 Hyperlipidemia, unspecified; Z68.20 Body mass index [BMI] 20.0-20.9, adult; Z88.5 Allergy status to narcotic agent; Z99.81 Dependence on supplemental oxygen; Z82.49 Family history of ischemic heart disease and other diseases of the circulatory system; Z72.0 Tobacco use
CPT/HCPCS: 36415; 71045; 71275; 80053; 82803; 83880; 84484; 85025; 85379; 93005; 93010; 94640; 94660; 94760; A9270-GY; J0456; J1956; J2405; J2920; J2930; J7050; Q9967

== ENCOUNTER 2018-06-02 18:52 | Inpatient (IN) | payer MEDICARE ==
[2018-06-02] MEDS ORDERED: NACL 0.9% 1000 ML 1,000 ML IV ONE (19:50)
[2018-06-02] MEDS ORDERED: SOLU-Medrol IV ONE (20:09)
[2018-06-02] MEDS ORDERED: PROVENTIL IH ONE (20:09)
[2018-06-02] MEDS ORDERED: ATROVENT IH ONE (20:09)
[2018-06-02] MEDS ORDERED: TYLENOL PO ONE (20:13)
--- NOTE | 2018-06-02 20:14 | Emergency Department Report ---
ED Shortness of Breath HPI - General Chief Complaint: Dyspnea/Respdistress Stated Complaint: DIFFICULTY BREATHING Time Seen by Provider: 06/02/18 20:05 Source: EMS Mode of arrival: Stretcher Limitations: No Limitations, Language Barrier - History of Present Illness Initial Comments: Patient is a 63-year-old female with past history of COPD who is complaining of shortness of breath for the last 2 days. Patient has had a mild cough is nonproductive for approximately 1 month became very short of breath yesterday. Patient does have fatigue. Patient denies any nausea vomiting. Patient does state that she has had some episodes where she has feels hot but denies chills. Patient is unsure if she's had a fever. Paramedics were called this evening to come check on the patient. Patient only just uses her portable inhaler and does not use a nebulizer machine although she has one at home. Paramedics helped her take a breathing treatment this evening before arrival. - Related Data Home Medications Medication Instructions Recorded Confirmed Last Taken Aspirin [Aspirin BABY CHEW TAB] 81 mg PO QDAY 03/01/18 03/01/18 Unknown Simvastatin 40 mg PO QHS 03/01/18 03/01/18 Unknown Previous Rx's Medication Instructions Recorded Last Taken Type dilTIAZem CD [Cardizem CD] 120 mg PO QDAY #30 capsule 04/29/15 07/31/15 Rx Butalb/Acetamin/Caff 50-325-40 1 tab PO Q4H PRN #20 tablet 03/05/18 Unknown Rx [Fioricet] Docusate Sodium [Colace CAP] 100 mg PO BID #20 capsule 03/05/18 Unknown Rx Prednisone [predniSONE 10 mg 10 mg PO .TAPER #1 tab.ds.pk 03/05/18 Unknown Rx (6-Day Pack, 21 Tabs)] Allergies Allergy/AdvReac Type Severity Reaction Status Date / Time codeine Allergy Unknown Verified 08/01/15 12:17 ED Review of Systems ROS: Stated complaint: DIFFICULTY BREATHING Other details as noted in HPI Comment: All other systems reviewed and negative ED Past Medical Hx - Past Medical History Hx Congestive Heart Failure: No Hx Diabetes: No Hx Asthma: No Hx COPD: Yes (Home O2 @ 3L) Additional medical history: Patient states she does not recall being given a diagnosis of SVT in the past. Patient states she was placed on diltiazem at one point, but thought it was for "blood clots." - Surgical History Additional Surgical History: 2: . Benign biopsy of left lung - Social History Smoking Status: Never Smoker Substance Use Type: None - Medications Home Medications: Home Medications Medication Instructions Recorded Confirmed Last Taken Type dilTIAZem CD [Cardizem CD] 120 mg PO QDAY #30 capsule 04/29/15 03/01/18 07/31/15 Rx Aspirin [Aspirin BABY CHEW TAB] 81 mg PO QDAY 03/01/18 03/01/18 Unknown History Simvastatin 40 mg PO QHS 03/01/18 03/01/18 Unknown History Butalb/Acetamin/Caff 50-325-40 1 tab PO Q4H PRN #20 tablet 03/05/18 Unknown Rx [Fioricet] Docusate Sodium [Colace CAP] 100 mg PO BID #20 capsule 03/05/18 Unknown Rx Prednisone [predniSONE 10 mg 10 mg PO .TAPER #1 tab.ds.pk 03/05/18 Unknown Rx (6-Day Pack, 21 Tabs)] ED Physical Exam - General Limitations: No Limitations, Language Barrier General appearance: alert, in no apparent distress - Head Head exam: Present: atraumatic, normocephalic - Eye Eye exam: Present: normal appearance, PERRL, EOMI - ENT ENT exam: Present: mucous membranes moist - Neck Neck exam: Present: normal inspection - Respiratory Respiratory exam: Present: normal lung sounds bilaterally, decreased breath sounds (patient with shallow breath sounds and is mildly tachypnea). Absent: respiratory distress, wheezes, rales, rhonchi, stridor - Cardiovascular Cardiovascular Exam: Present: regular rate, normal rhythm, normal heart sounds. Absent: systolic murmur, diastolic murmur, rubs, gallop - GI/Abdominal GI/Abdominal exam: Present: soft, normal bowel sounds - Extremities Exam Extremities exam: Present: normal inspection - Back Exam Back exam: Present: normal inspection - Neurological Exam Neurological exam: Present: alert, oriented X3 - Psychiatric Psychiatric exam: Present: normal affect, normal mood - Skin Skin exam: Present: warm, dry, intact, normal color. Absent: rash ED Course Vital Signs 06/02/18 06/02/18 06/02/18 19:24 19:31 19:41 Temperature 99.2 F Pulse Rate 107 H Respiratory 23 Rate Blood Pressure 139/78 O2 Sat by Pulse 97 97 98 Oximetry 06/02/18 06/02/18 06/02/18 19:45 20:01 20:15 Temperature Pulse Rate 99 H 114 H 103 H Respiratory 16 21 20 Rate Blood Pressure 139/78 163/85 163/85 O2 Sat by Pulse 97 98 98 Oximetry 06/02/18 06/02/18 06/02/18 20:31 20:45 21:01 Temperature Pulse Rate 97 H 107 H 103 H Respiratory 18 19 19 Rate Blood Pressure 163/85 163/85 163/85 O2 Sat by Pulse 98 98 100 Oximetry 06/02/18 06/02/18 06/02/18 21:10 21:15 21:31 Temperature 98.7 F Pulse Rate 97 H 94 H Respiratory 22 19 Rate Blood Pressure 163/85 163/85 O2 Sat by Pulse 98 99 Oximetry 06/02/18 06/02/18 21:45 22:01 Temperature Pulse Rate 97 H 95 H Respiratory 20 16 Rate Blood Pressure 163/85 96/41 O2 Sat by Pulse 99 98 Oximetry ED Medical Decision Making - Lab Data Result diagrams: 06/02/18 20:09 06/02/18 20:09 - Medical Decision Making [facility] [address] [place] [address] XRay Report Signed Patient: NORM TORRES MR#: [id number] : 1955 Acct:[id number] Age/Sex: 63 / F ADM Date: 06/02/18 Loc: ED Attending Dr: Ordering Physician: NILO RHODES MD Date of Service: 06/02/18 Procedure(s): XR chest 1V ap Accession Number(s): [id number] cc: NILO RHODES MD Fluoro Time In Minutes: FINAL REPORT PROCEDURE: XR CHEST 1V AP TECHNIQUE: Chest radiograph anteroposterior view. CPT 69332 HISTORY: Dyspnea COMPARISON: Prior chest x-ray 03/01/2018 FINDINGS: The heart is magnified due to projection, appears to be normal size. Emphysematous changes and fibrosis again visualized bilaterally. Emphysema greatest in the upper lung yip. Postsurgical changes are seen on the left. A suture line is visualized. In the midportion of the left chest there is new nodularity visualized measuring approximately 1.7 x 1.6 centimeters.. I MPRESSION: The COPD with emphysema and fibrosis. Postsurgical changes left upper lung field. New nodularity seen in the region of previous surgery measuring 1.7 x 1.6 centimeters.. I cannot exclude developing pulmonary nodule. CT of the chest recommended for further evaluation.. Transcribed By: ANATOLIY Dictated By: BELA CARLSON MD Electronically Authenticated By: BELA CARLSON MD Signed Date/Time: 06/02/182135 DD/ 37 TD/TT: 06/02/182137 Per my exam there is such extensive lung findings that it may be impossible to determine which of these lung findings are fibrotic in nature and which may be infectious in nature. Critical Care Time: Yes (30) Critical care attestation.: If time is entered above; I have spent that time in minutes in the direct care of this critically ill patient, excluding procedure time. ED Disposition Clinical Impression: Hypokalemia Pneumonia Qualifiers: Pneumonia type: due to unspecified organism Laterality: unspecified laterality Lung location: unspecified part of lung Qualified Code(s): J18.9 - Pneumonia, unspecified organism Sepsis Qualifiers: Sepsis type: sepsis due to unspecified organism Qualified Code(s): A41.9 - Sepsis, unspecified organism Disposition: OP ADMIT IP TO THIS HOSP Is pt being admited?: Yes Does the pt Need Aspirin: No Condition: Stable Instructions: Bacterial Pneumonia (ED) Referrals: PRIMARY CAREMD [Primary Care Provider] - 3-5 Days Time of Disposition: 22:39
[2018-06-02 20:19] LABS: Hematocrit 40.3 % (30.3-42.9); Hemoglobin 12.8 gm/dl (10.1-14.3); Mean Corpuscular HGB Conc 32 % (30-34); Mean Corpuscular Volume 89 fl (79-97); Platelet Count 214 K/mm3 (140-440); Red Blood Count 4.51 M/mm3 (3.65-5.03); Red Cell Distribution Width 14.7 % (13.2-15.2)
[2018-06-02 20:43] LABS: Alanine Aminotransferase 18 units/L (7-56); Albumin 4.1 g/dL (3.9-5); BUN/Creatinine Ratio 30; Blood Urea Nitrogen 12 mg/dL (7-17); Calcium 8.9 mg/dL (8.4-10.2); Hemolysis Index 21
--- NOTE | 2018-06-02 21:36 | XRay Report ---
FINAL REPORT PROCEDURE: XR CHEST 1V AP TECHNIQUE: Chest radiograph anteroposterior view. CPT 85543 HISTORY: Dyspnea COMPARISON: Prior chest x-ray 03/01/2018 FINDINGS: The heart is magnified due to projection, appears to be normal size. Emphysematous changes and fibros is again visualized bilaterally. Emphysema greatest in the upper lung yip. Postsurgical changes ar e seen on the left. A suture line is visualized. In the midportion of the left chest there is new nod ularity visualized measuring approximately 1.7 x 1.6 centimeters.. IMPRESSION: The COPD with emphysema and fibrosis. Postsurgical changes left upper lung field. New nodularity seen in the region of previous surgery bruna suring 1.7 x 1.6 centimeters.. I cannot exclude developing pulmonary nodule. CT of the chest recommen ded for further evaluation..
[2018-06-02 21:37] LABS: Anisocytosis 1+; Band Neutrophils # (Manual) 0.5 K/mm3; Basophils % (Manual) 0 % (0.0-1.8); Eosinophils % (Manual) 0 % (0.0-4.3); Platelet Estimate Consistent w Auto; Poikilocytosis 1+; Total Cells Counted 100
[2018-06-02] MEDS ORDERED: NACL 0.9% 1000 ML IV ONE (21:51)
[2018-06-02] MEDS: ROCEPHIN/NS 2 GM/100 ML 2 GM/100 ML BAG IV SCH (22:40)
[2018-06-02] MEDS: ZITHROMAX 500 MG in NACL 0.9% 250ML 250 ML IV SCH (23:10)
[2018-06-02] MEDS ORDERED: ZOFRAN IV PRN (23:54)
[2018-06-02] MEDS ORDERED: TYLENOL PO PRN (23:55)
[2018-06-03 00:41] LABS: Creatine Kinase MB 3.3 ng/mL (0.0-4.0)
--- NOTE | 2018-06-03 05:21 | History and Physical Report ---
CHIEF COMPLAINT: Shortness of breath. HISTORY OF PRESENT ILLNESS: The patient is a 63-year-old female with past history of COPD, who has been feeling weak, going on for some time and the patient developed shortness of breath associated with nonproductive cough. There is no history of chest pain. There is no definite history of fever, nausea or vomiting. The patient said that this shortness of breath became progressively worse, and the patient said that she was using her portable inhaler without much help. PAST MEDICAL HISTORY: Pertinent for COPD, home O2 dependent. Also the patient states she has a past history of questionable supraventricular tachycardia. PAST SURGICAL HISTORY: Pertinent for and biopsy of the left lung. FAMILY HISTORY: Noncontributory. SOCIAL HISTORY: The patient does not smoke, does not drink alcohol, and does not use illicit drugs. MEDICATIONS: The patient is on Cardizem 120 mg by mouth daily, aspirin 81 mg by mouth daily, simvastatin 40 mg at bedtime, Fioricet 1 tablet by mouth every 4 hours as needed for pain, docusate sodium 100 mg by mouth twice daily, and prednisone 10 mg in tapering doses with 21 tablets. ALLERGIES: THE PATIENT IS ALLERGIC TO CODEINE. REVIEW OF SYSTEMS: CONSTITUTIONAL: There is mild fever, but no chills, no diaphoresis. HEENT: There is no headache or sore throat. CARDIOVASCULAR SYSTEM: There is no chest pain or orthopnea. RESPIRATORY SYSTEM: Shortness of breath is present. Cough is present. GASTROINTESTINAL SYSTEM: There is no nausea, no vomiting, no abdominal pain, diarrhea or constipation. NEUROLOGICAL SYSTEM: There is no numbness, no dizziness, no altered mental status. MUSCULOSKELETAL SYSTEM: There is no joint pain or swelling. DERMATOLOGICAL SYSTEM: There is no skin rash or itching. GENITOURINARY SYSTEM: There is no dysuria, hematuria or flank pain. Rest of system review is normal. PHYSICAL EXAMINATION: GENERAL: At the time of exam, the patient was found to be alert, oriented x 3, and in mild distress due to shortness of breath. INITIAL VITAL SIGNS: Showed temperature of 99.2 degrees Fahrenheit, pulse of 107, respiration 23, blood pressure 139/78, and O2 sat of 97% on room air. HEENT: Showed pupils to be equal, round, reactive to light and accommodating. Extraocular muscles are intact. NECK: Supple with no JVD or carotid bruit. CARDIOVASCULAR SYSTEM: Showed normal first and second heart sounds with no gallops or murmurs. RESPIRATORY SYSTEM: Showed reduced air entry on both sides of the lungs with no abnormal breath sounds. GASTROINTESTINAL SYSTEM: Showed abdomen to be full, soft, nontender with no organomegaly or rigidity. NEUROLOGICAL SYSTEM: Showed no focal deficit. MUSCULOSKELETAL SYSTEM: Showed no joint swelling or tenderness. DERMATOLOGICAL SYSTEM: Showed no skin rash. GENITOURINARY SYSTEM: Showing no costovertebral angle tenderness. PERTINENT LABORATORY DATA AND IMAGING STUDIES: The patient had chest x-ray done that shows evidence of COPD with emphysema and fibrosis. There is also finding of postsurgical changes in the left upper lung field and new nodularity seen in the region of the previous surgery, measuring about 1.7 x 1.6 cm and the radiologist said he cannot exclude developing pulmonary nodule. CT of the chest is recommended for further evaluation. Lab results: The patient had CBC done with elevated white count of 24,500 and normal hemoglobin with normal hematocrit with CBC differential showing elevated segmented neutrophil count of 86%. The patient's chemistry shows elevated CO2 of 37 with normal BUN and unremarkable creatinine. The patient's cardiac enzymes were unremarkable. DIAGNOSIS: Chronic obstructive pulmonary disease exacerbation. PLAN OF ACTION: 1. The patient will be admitted to medical surgical [facility]. 2. The patient will be on IV Rocephin 1 gram daily and IV Zithromax 500 mg daily. 3. The patient will be on IV Solu-Medrol 60 mg every 8 hours and will be on DuoNeb q.i.d. 4. The patient will have cardiac enzymes checked q.6 hours x 2 levels. 5. The patient's diet will be low sodium diet or 2 g sodium diet. 6. The patient will be on p.r.n. medications like Tylenol 650 mg by mouth every 4 hours for fever and headache and IV Zofran 4 mg every 8 hours for nausea and vomiting. 7. The patient will have pulmonary consult with Dr. Patel for suspicious developing new nodule in the lungs. JOB# [id number] OCN/NTS
[2018-06-03] MEDS: SOLU-Medrol IV SCH ×3 (05:29→22:21)
[2018-06-03] MEDS ORDERED: DUONEB *Not for PRN Use IH SCH (08:00)
[2018-06-03] MEDS ORDERED: PROVENTIL IH PRN (09:37)
[2018-06-03] MEDS: BABY ASPIRIN PO SCH (10:07)
[2018-06-03] MEDS: COLACE PO SCH ×2 (10:09→22:22)
[2018-06-03] MEDS: HEPARIN SUB-Q SCH ×2 (10:09→22:20)
[2018-06-03] MEDS: CARDIZEM CD PO SCH ×2 (10:09→18:47)
[2018-06-03] MEDS: BROVANA NEBU IH SCH ×2 (10:27→20:04)
[2018-06-03] MEDS: PULMICORT IH SCH ×2 (10:27→20:04)
[2018-06-03 11:44] LABS: Bilirubin,Urine NEG (Negative); Blood,Urine MOD (Negative); Color,Urine Straw (Yellow); Protein,Urine <15 mg/dL mg/dL (Negative); Urobilinogen,Urine < 2.0 mg/dL (<2.0)
[2018-06-03] MEDS: DUONEB *Not for PRN Use IH SCH ×2 (14:07→20:35)
[2018-06-03] MEDS ORDERED: BENADRYL PO ONE (21:05)
[2018-06-03] MEDS ORDERED: NON-FORMULARY (Simvastatin [Simvastatin] 40 MG) PO SCH (22:00)
[2018-06-03] MEDS: PRAVACHOL PO SCH (22:23)
[2018-06-03] MEDS: ROCEPHIN/NS 2 GM/100 ML 2 GM/100 ML BAG IV SCH (22:24)
[2018-06-03] MEDS: ZITHROMAX 500 MG in NACL 0.9% 250ML 250 ML IV SCH (22:24)
[2018-06-04] MEDS: SOLU-Medrol IV SCH ×3 (06:09→22:53)
--- NOTE | 2018-06-04 07:22 | Progress Note ---
Assessment and Plan Acute on chronic respiratory failure COPD exacerbation SIRS, due to COPD exacerbation HTN, moderately control tobacco abuse HLD, on statin - cont to monitor at medical unit - cont supplemental O2, scheduled nebs, empiric steroid, empiric abx - resumed home meds for HTN, cont statin - DVT Px Subjective Date of service: 06/03/18 Interval history: patient seen and examined c/o SOB even on rest, c/o cough denies COugh, tolerating diet Objective - Constitutional Vitals: Vital Signs - 12hr 06/03/18 06/03/18 06/03/18 20:05 20:06 20:33 Temperature Pulse Rate Pulse Rate [ 88 88 Anterior Bilateral Throughout] Respiratory Rate Respiratory 20 20 Rate [Anterior Bilateral Throughout] Blood Pressure O2 Sat by Pulse 97 Oximetry 06/03/18 06/04/18 06/04/18 22:00 00:13 05:23 Temperature 97.7 F 98.0 F Pulse Rate 83 58 L Pulse Rate [ Anterior Bilateral Throughout] Respiratory 16 20 20 Rate Respiratory Rate [Anterior Bilateral Throughout] Blood Pressure 96/48 104/55 O2 Sat by Pulse 99 100 Oximetry General appearance: Present: no acute distress - EENT Eyes: PERRL, EOM intact ENT: hearing intact, clear oral mucosa Ears: bilateral: normal - Neck Neck: supple, normal ROM - Respiratory Respiratory effort: labored Respiratory: bilateral: diminished, rales - Cardiovascular Rhythm: regular Heart Sounds: Present: S1 & S2. Absent: gallop, rub Extremities: pulses intact, No edema, normal color, Full ROM - Gastrointestinal General gastrointestinal: Present: soft, non-tender, non-distended, normal bowel sounds - Integumentary Integumentary: clear, warm, dry - Musculoskeletal Musculoskeletal: 1, strength equal bilaterally - Neurologic Neurologic: moves all extremities - Psychiatric Psychiatric: memory intact, appropriate mood/affect, intact judgment & insight - Labs CBC & Chem 7: 06/04/18 07:40 06/04/18 07:40 Labs: Abnormal lab results 06/03/18 06/03/18 06/04/18 Range/Units 05:42 22:19 06:24 POC Glucose 196 H 122 H (70-105) CK-MB (CK-2) 6.0 H (0.0-4.0) ng/mL CK-MB (CK-2) Rel Index 6.3 H (0-4)
[2018-06-04 07:52] LABS: Hematocrit 31.4 % (30.3-42.9); Hemoglobin 10.2 gm/dl (10.1-14.3); Mean Corpuscular HGB Conc 32 % (30-34); Mean Corpuscular Volume 88 fl (79-97); Platelet Count 175 K/mm3 (140-440); Red Blood Count 3.57 M/mm3 (3.65-5.03); Red Cell Distribution Width 14.4 % (13.2-15.2)
[2018-06-04 08:05] LABS: BUN/Creatinine Ratio 47; Blood Urea Nitrogen 14 mg/dL (7-17); Calcium 8.6 mg/dL (8.4-10.2); Hemolysis Index 21
[2018-06-04] MEDS: PULMICORT IH SCH ×2 (09:37→20:34)
[2018-06-04] MEDS: BROVANA NEBU IH SCH ×2 (09:37→20:34)
[2018-06-04] MEDS: DUONEB *Not for PRN Use IH SCH ×3 (09:37→20:34)
[2018-06-04] MEDS: HEPARIN SUB-Q SCH ×2 (10:51→22:52)
[2018-06-04] MEDS: COLACE PO SCH ×2 (10:51→22:53)
[2018-06-04] MEDS: BABY ASPIRIN PO SCH (10:52)
[2018-06-04] MEDS: CARDIZEM CD PO SCH (12:07)
--- NOTE | 2018-06-04 14:38 | Progress Note ---
Assessment and Plan Acute on chronic respiratory failure COPD exacerbation SIRS, due to COPD exacerbation HTN, moderately control tobacco abuse HLD, on statin - cont to monitor at medical unit - cont supplemental O2, scheduled nebs, empiric steroid, empiric abx - resumed home meds for HTN, cont statin - DVT Px Subjective Date of service: 06/04/18 Interval history: patient seen and examined c/o SOB even on rest but slightly improved, c/o cough denies COugh, tolerating diet Objective - Exam Narrative Exam: General appearance: Present: no acute distress - EENT Eyes: PERRL, EOM intact ENT: hearing intact, clear oral mucosa Ears: bilateral: normal - Neck Neck: supple, normal ROM - Respiratory Respiratory effort: labored Respiratory: bilateral: diminished, rales - Cardiovascular Rhythm: regular Heart Sounds: Present: S1 & S2. Absent: gallop, rub Extremities: pulses intact, No edema, normal color, Full ROM - Gastrointestinal General gastrointestinal: Present: soft, non-tender, non-distended, normal bowel sounds - Integumentary Integumentary: clear, warm, dry - Musculoskeletal Musculoskeletal: 1, strength equal bilaterally - Neurologic Neurologic: moves all extremities - Psychiatric Psychiatric: memory intact, appropriate mood/affect, intact judgment & insight - Constitutional Vitals: Vital Signs - 12hr 06/04/18 06/04/18 05:23 13:27 Temperature 98.0 F 98.2 F Pulse Rate 58 L 74 Respiratory 20 18 Rate Blood Pressure 104/55 104/59 O2 Sat by Pulse 100 97 Oximetry - Labs CBC & Chem 7: 06/04/18 07:40 06/04/18 07:40 Labs: Abnormal lab results 06/03/18 06/04/18 06/04/18 Range/Units 22:19 06:24 07:40 WBC 19.4 H (4.5-11.0) K/mm3 RBC 3.57 L (3.65-5.03) M/mm3 Carbon Dioxide (22-30) mmol/L Creatinine (0.7-1.2) mg/dL Glucose (65-100) mg/dL POC Glucose 196 H 122 H (70-105) 06/04/18 Range/Units 07:40 WBC (4.5-11.0) K/mm3 RBC (3.65-5.03) M/mm3 Carbon Dioxide 35 H (22-30) mmol/L Creatinine 0.3 L (0.7-1.2) mg/dL Glucose 133 H (65-100) mg/dL POC Glucose (70-105)
[2018-06-04] MEDS: FIORICET PO PRN (16:15)
[2018-06-04] MEDS: ROCEPHIN/NS 2 GM/100 ML 2 GM/100 ML BAG IV SCH (22:52)
[2018-06-04] MEDS: ZITHROMAX PO SCH (22:53)
[2018-06-04] MEDS: PRAVACHOL PO SCH (22:53)
[2018-06-05 04:53] LABS: HDL Cholesterol 113 mg/dL (40-59); LDL Cholesterol,Direct 119 mg/dL (50-130)
[2018-06-05] MEDS: PULMICORT IH SCH ×2 (08:52→20:53)
[2018-06-05] MEDS: BROVANA NEBU IH SCH ×2 (08:52→20:53)
[2018-06-05] MEDS: DUONEB *Not for PRN Use IH SCH ×3 (09:08→20:53)
[2018-06-05] MEDS: SOLU-Medrol IV SCH ×2 (09:39→22:00)
[2018-06-05] MEDS: BABY ASPIRIN PO SCH (09:40)
[2018-06-05] MEDS: COLACE PO SCH ×2 (09:40→22:01)
[2018-06-05] MEDS: HEPARIN SUB-Q SCH ×2 (09:59→22:05)
[2018-06-05] MEDS: FIORICET PO PRN ×2 (10:16→22:01)
[2018-06-05] MEDS: CARDIZEM CD PO SCH (13:03)
--- NOTE | 2018-06-05 15:57 | Progress Note ---
Assessment and Plan Acute on chronic respiratory failure COPD exacerbation SIRS, due to COPD exacerbation HTN, moderately control tobacco abuse HLD, on statin - cont to monitor at medical unit - cont supplemental O2, scheduled nebs, taper steroid, empiric abx - resumed home meds for HTN, cont statin - DVT Px Subjective Date of service: 06/05/18 Interval history: patient seen and examined c/o SOB on exertion, breathing improved but not quite ready to go home, c/o cough, denies chest pain, tolerating diet Objective - Exam Narrative Exam: General appearance: Present: no acute distress - EENT Eyes: PERRL, EOM intact ENT: hearing intact, clear oral mucosa Ears: bilateral: normal - Neck Neck: supple, normal ROM - Respiratory Respiratory effort: labored Respiratory: bilateral: diminished, rales - Cardiovascular Rhythm: regular Heart Sounds: Present: S1 & S2. Absent: gallop, rub Extremities: pulses intact, No edema, normal color, Full ROM - Gastrointestinal General gastrointestinal: Present: soft, non-tender, non-distended, normal bowel sounds - Integumentary Integumentary: clear, warm, dry - Musculoskeletal Musculoskeletal: 1, strength equal bilaterally - Neurologic Neurologic: moves all extremities - Psychiatric Psychiatric: memory intact, appropriate mood/affect, intact judgment & insight - Constitutional Vitals: Vital Signs - 12hr 06/05/18 06/05/18 06/05/18 05:40 09:05 09:11 Temperature 97.9 F Pulse Rate 75 Pulse Rate [ 92 H Anterior Bilateral Throughout] Respiratory 18 Rate Respiratory 16 Rate [Anterior Bilateral Throughout] Blood Pressure 131/75 O2 Sat by Pulse 98 97 Oximetry 06/05/18 06/05/18 06/05/18 09:17 12:20 14:10 Temperature 98.0 F Pulse Rate 66 Pulse Rate [ 100 H 88 Anterior Bilateral Throughout] Respiratory 18 Rate Respiratory 18 19 Rate [Anterior Bilateral Throughout] Blood Pressure 132/69 O2 Sat by Pulse 96 Oximetry 06/05/18 14:17 Temperature Pulse Rate Pulse Rate [ 92 H Anterior Bilateral Throughout] Respiratory Rate Respiratory 16 Rate [Anterior Bilateral Throughout] Blood Pressure O2 Sat by Pulse Oximetry - Labs CBC & Chem 7: 06/04/18 07:40 06/04/18 07:40 Labs: Abnormal lab results 06/05/18 Range/Units 03:42 Cholesterol 217 H (50-199) mg/dL HDL Cholesterol 113 H (40-59) mg/dL
[2018-06-05] MEDS: ZITHROMAX PO SCH (22:01)
[2018-06-05] MEDS: PRAVACHOL PO SCH (22:01)
[2018-06-05] MEDS: ROCEPHIN/NS 2 GM/100 ML 2 GM/100 ML BAG IV SCH (22:04)
[2018-06-06] MEDS: BROVANA NEBU IH SCH (08:07)
[2018-06-06] MEDS: PULMICORT IH SCH (08:07)
[2018-06-06] MEDS: DUONEB *Not for PRN Use IH SCH ×2 (08:08→14:59)
[2018-06-06] MEDS: HEPARIN SUB-Q SCH (09:27)
[2018-06-06] MEDS: SOLU-Medrol IV SCH (09:27)
[2018-06-06] MEDS: COLACE PO SCH (09:28)
[2018-06-06] MEDS: BABY ASPIRIN PO SCH (09:28)
[2018-06-06] MEDS: CARDIZEM CD PO SCH (09:36)
[2018-06-06] MEDS: FIORICET PO PRN (10:14)
--- NOTE | 2018-06-06 14:28 | Discharge Summary ---
Providers - Providers Date of Admission: 06/02/18 23:49 Date of discharge: 06/06/18 Attending physician: LATRICIA WHITE 06/04/18 14:40 Physical Therapy Evaluation and Treat [CONS] Routine Comment: Reason For Exam: placement Primary care physician: HISTORICAL RECORDS ADMINISTRATOR Hospitalization Condition: Stable Pertinent studies: CXR Hospital course: 63 YO Female with Severe COPD, Chronic Respiratory Failure on 3L Home Oxygen presents to ED c/o shortness of breath, patient was treated appropriately for COPD exacerbation and appropriate medication scripts were given at the time of discharge. Patient was hemodynamically stable at the time of discharge. Discharge diagnosis: Acute on chronic respiratory failure COPD exacerbation SIRS, due to COPD exacerbation HTN, moderately control tobacco abuse HLD, on statin Disposition: [id number]/TX-06 HOME UNDER HOME HL[facility] Time spent for discharge: 34 minutes Core Measure Documentation - Palliative Care Palliative Care/ Comfort Measures: Not Applicable - Core Measures Any of the following diagnoses?: none Exam - Physical Exam Narrative exam: General appearance: Present: no acute distress - EENT Eyes: PERRL, EOM intact ENT: hearing intact, clear oral mucosa Ears: bilateral: normal - Neck Neck: supple, normal ROM - Respiratory Respiratory effort: labored Respiratory: bilateral: diminished, no rales - Cardiovascular Rhythm: regular Heart Sounds: Present: S1 & S2. Absent: gallop, rub Extremities: pulses intact, No edema, normal color, Full ROM - Gastrointestinal General gastrointestinal: Present: soft, non-tender, non-distended, normal bowel sounds - Integumentary Integumentary: clear, warm, dry - Musculoskeletal Musculoskeletal: 1, strength equal bilaterally - Neurologic Neurologic: moves all extremities - Psychiatric Psychiatric: memory intact, appropriate mood/affect, intact judgment & insight - Constitutional Vitals: Temp Pulse Resp BP Pulse Ox 98.1 F 65 22 118/71 96 06/06/18 12:10 06/06/18 12:10 06/06/18 12:10 06/06/18 12:10 06/06/18 12:10 Plan Activity: advance as tolerated Weight Bearing Status: Non-Weight Bearing Diet: low fat Special Instructions: home oxygen via (N/C), home hospice Follow up with: PRIMARY CARE, [Primary Care Provider] - 3-5 Days Prescriptions: Simvastatin 40 mg PO QHS #30 tablet Budesonide/Formoterol Fumarate [Symbicort 160-4.5 Mcg Inhaler] 10.2 gm IH BID 30 Days hfa.aer.ad dilTIAZem CD [Cardizem CD] 120 mg PO QDAY #30 capsule guaiFENesin DM [Guaifenesin Dm Syrup] 10 ml PO Q4H PRN 30 Days oral.liqd PRN Reason: Cough levoFLOXacin [Levaquin] 750 mg PO QDAY #3 tablet Prednisone [predniSONE 10 mg (6-Day Pack, 21 Tabs)] 10 mg PO .TAPER #1 tab.ds.pk Tiotropium [Spiriva] 18 mcg IH QDAY #30 box Ipratropium/Albuterol Sulfate [DUONEB *Not for PRN Use*] 1 ampul IH TIDRT #30 ampul.neb
[2018-06-06] MEDS ORDERED: PNEUMOVAX 23 IM ONE (14:56)
[2018-06-06 15:40] VITALS: BP 140/78
== END 2018-06-06 16:15 | disposition home health service (06) | DRG 871 ==
LOC: ED 18:52 → 3A 23:49
PROVIDERS: ADMIT Internal Medicine; ATTEND Internal Medicine
PROC: 3E0234Z Introduction of Serum, Toxoid and Vaccine into Muscle, Percutaneous Approach (ICD-10-PCS; principal; 2018-06-06)
DX: A41.9 Sepsis, unspecified organism (principal); J18.9 Pneumonia, unspecified organism; J96.20 Acute and chronic respiratory failure, unspecified whether with hypoxia or hypercapnia; J44.1 Chronic obstructive pulmonary disease with (acute) exacerbation; J44.0 Chronic obstructive pulmonary disease with (acute) lower respiratory infection; E87.6 Hypokalemia; Z79.82 Long term (current) use of aspirin; Z88.5 Allergy status to narcotic agent; Z99.81 Dependence on supplemental oxygen; Z79.899 Other long term (current) drug therapy; Z23 Encounter for immunization
CPT/HCPCS: 36415; 71045; 80048; 80053; 81001; 82140; 82465; 82550; 82553; 82962; 83718; 83721; 84484; 85007; 85025; 85027; 87040; 87116; 90471; 90732; 93005; 93010; 94640; 94760; 96374; 96375; G0378; A9270-GY; G0009; J0456; J0696; J1644; J2930; J7030; J7050

== ENCOUNTER 2018-12-06 17:08 | Inpatient (IN) | payer MEDICARE ==
--- NOTE | 2018-12-06 17:15 | Emergency Department Report ---
ED Shortness of Breath HPI - General Stated Complaint: SOB Time Seen by Provider: 12/06/18 17:12 Source: patient, EMS Mode of arrival: Stretcher Limitations: No Limitations - History of Present Illness Initial Comments: Patient is a 63-year-old female who presents emergency with complaints of palpitations, chest pressure and tightness and shortness of breath. Patient states her symptoms started this morning. Patient states her symptoms are worsening. Patient states she has a history of COPD. Patient states she just got out of another hospital approximately a week ago for a COPD exacerbation. Patient states she did not start her medication that she was discharged with. Patient states her chest tightness is a 5 out of 10. Patient states her symptoms are better with rest worse with exertion. MD Complaint: shortness of breath -: Sudden Severity: severe Pain Scale: 5 Quality: aching Consistency: constant Improves With: rest Worsens With: exertion Known History Of: COPD Context: medication noncompliance Associated Symptoms: chest pain, cough, palpitations Treatments Prior to Arrival: oxygen, bronchodilator - Related Data Home Oxygen Therapy: Yes Home Oxygen Amount: 2 Liters Home Medications Medication Instructions Recorded Confirmed Last Taken Aspirin [Aspirin BABY CHEW TAB] 81 mg PO QDAY 03/01/18 06/04/18 06/02/18 09:00 Previous Rx's Medication Instructions Recorded Last Taken Type Butalb/Acetamin/Caff 50-325-40 1 tab PO Q4H PRN #20 tablet 03/05/18 06/02/18 10:00 Rx [Fioricet 50-325-40] Docusate Sodium [Colace CAP] 100 mg PO BID #20 capsule 03/05/18 06/02/18 22:00 Rx Budesonide/Formoterol Fumarate 10.2 gm IH BID 30 Days hfa.aer.ad 06/06/18 Unknown Rx [Symbicort 160-4.5 Mcg Inhaler] Ipratropium/Albuterol Sulfate 1 ampul IH TIDRT #30 ampul.neb 06/06/18 Unknown Rx [DUONEB *Not for PRN Use*] Prednisone [predniSONE 10 mg 10 mg PO .TAPER #1 tab.ds.pk 06/06/18 Unknown Rx (6-Day Pack, 21 Tabs)] Simvastatin 40 mg PO QHS #30 tablet 06/06/18 Unknown Rx Tiotropium [Spiriva] 18 mcg IH QDAY #30 box 06/06/18 Unknown Rx dilTIAZem CD [Cardizem CD] 120 mg PO QDAY #30 capsule 06/06/18 Unknown Rx guaiFENesin DM [Guaifenesin Dm 10 ml PO Q4H PRN 30 Days oral.liqd 06/06/18 Unknown Rx Syrup] levoFLOXacin [Levaquin] 750 mg PO QDAY #3 tablet 06/06/18 Unknown Rx Allergies Allergy/AdvReac Type Severity Reaction Status Date / Time codeine Allergy Unknown Verified 08/01/15 12:17 ED Review of Systems ROS: Stated complaint: SOB Other details as noted in HPI Constitutional: denies: chills, fever Eyes: denies: eye pain, eye discharge, vision change ENT: denies: ear pain, throat pain Respiratory: cough, shortness of breath, SOB with exertion, SOB at rest. denies: wheezing Cardiovascular: as per HPI, chest pain, palpitations, dyspnea on exertion Endocrine: no symptoms reported Gastrointestinal: denies: abdominal pain, nausea, diarrhea Genitourinary: denies: urgency, dysuria, discharge Musculoskeletal: denies: back pain, joint swelling, arthralgia Skin: denies: rash, lesions Neurological: denies: headache, weakness, paresthesias Psychiatric: denies: anxiety, depression Hematological/Lymphatic: denies: easy bleeding, easy bruising ED Past Medical Hx - Past Medical History Previous Medical History?: Yes Hx Congestive Heart Failure: No Hx Diabetes: No Hx Asthma: No Hx COPD: Yes Additional medical history: Patient states she does not recall being given a diagnosis of SVT in the past. Patient states she was placed on diltiazem at one point, but thought it was for "blood clots." - Surgical History Past Surgical History?: Yes Additional Surgical History: 2: . Benign biopsy of left lung - Family History Family history: no significant - Social History Smoking Status: Former Smoker Substance Use Type: None - Medications Home Medications: Home Medications Medication Instructions Recorded Confirmed Last Taken Type Aspirin [Aspirin BABY CHEW TAB] 81 mg PO QDAY 03/01/18 06/04/18 06/02/18 09:00 History Butalb/Acetamin/Caff 50-325-40 1 tab PO Q4H PRN #20 tablet 03/05/18 06/04/18 06/02/18 10:00 Rx [Fioricet 50-325-40] Docusate Sodium [Colace CAP] 100 mg PO BID #20 capsule 03/05/18 06/04/18 06/02/18 22:00 Rx Budesonide/Formoterol Fumarate 10.2 gm IH BID 30 Days hfa.aer.ad 06/06/18 Unknown Rx [Symbicort 160-4.5 Mcg Inhaler] Ipratropium/Albuterol Sulfate 1 ampul IH TIDRT #30 ampul.neb 06/06/18 Unknown Rx [DUONEB *Not for PRN Use*] Prednisone [predniSONE 10 mg 10 mg PO .TAPER #1 tab.ds.pk 06/06/18 Unknown Rx (6-Day Pack, 21 Tabs)] Simvastatin 40 mg PO QHS #30 tablet 06/06/18 Unknown Rx Tiotropium [Spiriva] 18 mcg IH QDAY #30 box 06/06/18 Unknown Rx dilTIAZem CD [Cardizem CD] 120 mg PO QDAY #30 capsule 06/06/18 Unknown Rx guaiFENesin DM [Guaifenesin Dm 10 ml PO Q4H PRN 30 Days oral.liqd 06/06/18 Unknown Rx Syrup] levoFLOXacin [Levaquin] 750 mg PO QDAY #3 tablet 06/06/18 Unknown Rx ED Physical Exam - General Limitations: No Limitations General appearance: alert, in distress - Head Head exam: Present: atraumatic, normocephalic - Eye Eye exam: Present: normal appearance - ENT ENT exam: Present: mucous membranes moist - Neck Neck exam: Present: normal inspection - Respiratory Respiratory exam: Present: respiratory distress, wheezes, prolonged expiratory - Cardiovascular Cardiovascular Exam: Present: regular rate, normal rhythm. Absent: systolic murmur, diastolic murmur, rubs, gallop - GI/Abdominal GI/Abdominal exam: Present: soft, normal bowel sounds - Extremities Exam Extremities exam: Present: normal inspection - Back Exam Back exam: Present: normal inspection - Neurological Exam Neurological exam: Present: alert, oriented X3 - Psychiatric Psychiatric exam: Present: normal affect, normal mood - Skin Skin exam: Present: warm, dry, intact, normal color. Absent: rash ED Course Vital Signs 07/13/19 07/13/19 07/13/19 17:20 17:35 17:56 Temperature 98.3 F Pulse Rate 82 Pulse Rate [ Bilateral] Respiratory 24 24 15 Rate Respiratory Rate [Bilateral ] Blood Pressure 139/79 O2 Sat by Pulse 100 100 100 Oximetry 12/06/18 12/06/18 12/06/18 18:00 18:15 18:31 Temperature Pulse Rate 78 60 56 L Pulse Rate [ 74 69 Bilateral] Respiratory 19 15 15 Rate Respiratory 24 18 Rate [Bilateral ] Blood Pressure 129/81 129/81 129/81 O2 Sat by Pulse 100 100 100 Oximetry 12/06/18 12/06/18 12/06/18 18:45 19:00 19:15 Temperature Pulse Rate 55 L 58 L 57 L Pulse Rate [ Bilateral] Respiratory 20 17 17 Rate Respiratory Rate [Bilateral ] Blood Pressure 129/81 130/73 130/73 O2 Sat by Pulse 100 100 100 Oximetry 12/06/18 12/06/18 12/06/18 19:31 19:45 20:00 Temperature Pulse Rate 68 52 L 59 L Pulse Rate [ Bilateral] Respiratory 17 15 17 Rate Respiratory Rate [Bilateral ] Blood Pressure 130/73 130/73 136/64 O2 Sat by Pulse 100 100 100 Oximetry 12/06/18 12/06/18 12/06/18 20:46 21:01 21:15 Temperature Pulse Rate 50 L 50 L Pulse Rate [ Bilateral] Respiratory 16 16 Rate Respiratory Rate [Bilateral ] Blood Pressure 136/64 115/54 136/64 O2 Sat by Pulse 100 100 100 Oximetry 12/06/18 12/06/18 12/06/18 21:31 21:45 22:00 Temperature Pulse Rate 48 L 45 L 59 L Pulse Rate [ Bilateral] Respiratory 15 17 23 Rate Respiratory Rate [Bilateral ] Blood Pressure 136/64 115/54 120/58 O2 Sat by Pulse 100 100 100 Oximetry 12/06/18 12/06/18 12/06/18 22:15 22:31 22:45 Temperature Pulse Rate 55 L 51 L 54 L Pulse Rate [ Bilateral] Respiratory 13 14 13 Rate Respiratory Rate [Bilateral ] Blood Pressure 120/58 120/58 120/58 O2 Sat by Pulse 100 100 100 Oximetry 12/06/18 12/06/18 12/06/18 23:01 23:15 23:31 Temperature Pulse Rate 56 L 48 L 47 L Pulse Rate [ Bilateral] Respiratory 19 22 15 Rate Respiratory Rate [Bilateral ] Blood Pressure 97/57 97/57 97/57 O2 Sat by Pulse 100 100 100 Oximetry - Reevaluation(s) Reevaluation #1: Patient states she is feeling better. Patient's lung sounds have improved. 12/06/18 18:25 Reevaluation #2: Discussed all results with patient. Patient will be admitted to the hospitalist service. Patient agrees to plan of care. 12/06/18 18:47 - Consultations Consultation #1: Hospitalist consulted for admission. Hospitalist to admit patient. Hospitalist to assume care patient. 12/06/18 18:47 ED Medical Decision Making - Lab Data Result diagrams: 12/06/18 17:37 12/06/18 17:37 - EKG Data -: EKG Interpreted by Me EKG shows normal: sinus rhythm, axis, intervals, QRS complexes, ST-T waves Rate: normal - Radiology Data Radiology results: report reviewed, image reviewed interpreted by me: Right lower effusion CHEST 1 VIEW INDICATION / CLINICAL INFORMATION: Dyspnea. COMPARISON: None available. FINDINGS: SUPPORT DEVICES: None. HEART / MEDIASTINUM: No significant abnormality. LUNGS / PLEURA: Small bilateral pleural effusions. Emphysema. The upper lungs are grossly clear. ADDITIONAL FINDINGS: No significant additional findings. IMPRESSION: Small pleural effusion/pleural thickening with emphysema. - Medical Decision Making Patient is a 63-year-old female that presents emergency with complaints of shortness of breath, difficulty breathing and respiratory distress. Patient has history of COPD. Patient's initial evaluation done and patient was having difficulty breathing and wheezing. Patient given Solu-Medrol, DuoNeb, oxygen and magnesium run. Patient responded well to treatment. Patient will be admitted to the hospitalist service. Patient given IV antibiotics. Patient's labs are unremarkable except for elevated white blood cell count\\ and lactic acidosis. - Differential Diagnosis COPD exacerbation. Shortness of breath. Difficulty breathing. Pneumonia. Critical Care Time: Yes Critical care attestation.: If time is entered above; I have spent that time in minutes in the direct care of this critically ill patient, excluding procedure time. Critical Care Time: 45 minutes ED Disposition Clinical Impression: COPD exacerbation, Respiratory distress, Lactic acid acidosis, Hypoxia Dyspnea Qualifiers: Dyspnea type: shortness of breath Qualified Code(s): R06.02 - Shortness of breath Pneumonia Qualifiers: Pneumonia type: due to unspecified organism Laterality: right Lung location: lower lobe of lung Qualified Code(s): J18.1 - Lobar pneumonia, unspecified organism Disposition: OP ADMIT IP TO THIS HOSP Is pt being admited?: Yes Does the pt Need Aspirin: No Condition: Critical Time of Disposition: 18:40
[2018-12-06] MEDS ORDERED: SOLU-Medrol IV ONE (17:19)
[2018-12-06] MEDS ORDERED: DUONEB *Not for PRN Use IH ONE (17:20)
[2018-12-06] MEDS ORDERED: MAGNESIUM SULFATE 1 GM in NACL 0.9% 50 ML IV ONE (17:20)
--- NOTE | 2018-12-06 17:52 | XRay Report ---
CHEST 1 VIEW INDICATION / CLINICAL INFORMATION: Dyspnea. COMPARISON: None available. FINDINGS: SUPPORT DEVICES: None. HEART / MEDIASTINUM: No significant abnormality. LUNGS / PLEURA: Small bilateral pleural effusions. Emphysema. The upper lungs are grossly clear. ADDITIONAL FINDINGS: No significant additional findings. IMPRESSION: Small pleural effusion/pleural thickening with emphysema. Signer Name: Chris Kearney MD Signed: 12/06/2018 5:47 PM Workstation Name: [id number]
[2018-12-06] MEDS ORDERED: MAXIPIME/NS 1 GM/100 ML 1 GM/100 ML BAG IV ONE (18:09)
[2018-12-06 18:14] LABS: Hematocrit 39.7 % (30.3-42.9); Hemoglobin 12.7 gm/dl (10.1-14.3); Mean Corpuscular HGB Conc 32 % (30-34); Mean Corpuscular Volume 87 fl (79-97); Platelet Count 269 K/mm3 (140-440); Red Blood Count 4.57 M/mm3 (3.65-5.03); Red Cell Distribution Width 16.1 % (13.2-15.2)
[2018-12-06 18:37] LABS: Creatine Kinase MB 2.2 ng/mL (0.0-4.0)
[2018-12-06 18:39] LABS: Albumin 3.9 g/dL (3.9-5); BUN/Creatinine Ratio 36; Blood Urea Nitrogen 18 mg/dL (7-17); Calcium 9.1 mg/dL (8.4-10.2); Hemolysis Index 113
[2018-12-06 18:50] LABS: Alanine Aminotransferase 21 units/L (7-56)
--- NOTE | 2018-12-06 19:05 | History and Physical Report ---
History of Present Illness Chief complaint: I cant breathe History of present illness: 63 YO Female with Severe Malnutrition, COPD, Chronic Respiratory Failure on 3L Home Oxygen, SVT on Cardizem presents to ED for evaluation. Pt states that she has experienced shortness of breath over the past 3 days with worsening symptoms over the past 1 day. Pt also acknowledges dypsnea on exertion, dypsnea at rest, decreased exercise tolerance, increased nonproductive cough with yellow sputum, increased use of her nebulizer over the past 2 days without improvement in symptoms as well as subjective fever and malaise. EMS notified, and upon arrival the patient was found to be in respiratory distress. Pt transported to [facility] for further care and evaluation. Pt seen and evaluated in ED and found to have COPD Exacerbation complicated by Pneumonia, and Acute on Chronic Respiratory Failure, SIRS, and Acidosis. Pt initiated on Pneumonia protocol, IV steroid therapy and supplemental oxygen with significant improvement in sympt oms. Pt Admitted to medical floor. Pt denies chills, CP, Palpitations, Headache, Trauma, recent ill contacts, skin rash, or known exposure to COPD triggers, prolonged travel/immobility, unilateral leg swelling, calf pain, individual/family history of DVT/PT/Bleeding/Blood Clotting Disorders. Prior a dmission on 06/02/18 reviewed. All listed medication reconciled at time of admission. Past History Past Medical History: COPD, other (SVT, Severe Malnutrition) Past Surgical History: , Other (Lung biopsy) Social history: single. denies: smoking, alcohol abuse, prescription drug abuse Family history: hypertension Medications and Allergies Allergies Allergy/AdvReac Type Severity Reaction Status Date / Time codeine Allergy Unknown Verified 08/01/15 12:17 Home Medications Medication Instructions Recorded Confirmed Last Taken Type Aspirin [Aspirin BABY CHEW TAB] 81 mg PO QDAY 03/01/18 06/04/18 06/02/18 09:00 History Butalb/Acetamin/Caff 50-325-40 1 tab PO Q4H PRN #20 tablet 03/05/18 06/04/18 06/02/18 10:00 Rx [Fioricet 50-325-40] Docusate Sodium [Colace CAP] 100 mg PO BID #20 capsule 03/05/18 06/04/18 06/02/18 22:00 Rx Budesonide/Formoterol Fumarate 10.2 gm IH BID 30 Days hfa.aer.ad 06/06/18 Unknown Rx [Symbicort 160-4.5 Mcg Inhaler] Ipratropium/Albuterol Sulfate 1 ampul IH TIDRT #30 ampul.neb 06/06/18 Unknown Rx [DUONEB *Not for PRN Use*] Prednisone [predniSONE 10 mg 10 mg PO .TAPER #1 tab.ds.pk 06/06/18 Unknown Rx (6-Day Pack, 21 Tabs)] Simvastatin 40 mg PO QHS #30 tablet 06/06/18 Unknown Rx Tiotropium [Spiriva] 18 mcg IH QDAY #30 box 06/06/18 Unknown Rx dilTIAZem CD [Cardizem CD] 120 mg PO QDAY #30 capsule 06/06/18 Unknown Rx guaiFENesin DM [Guaifenesin Dm 10 ml PO Q4H PRN 30 Days oral.liqd 06/06/18 Unknown Rx Syrup] levoFLOXacin [Levaquin] 750 mg PO QDAY #3 tablet 06/06/18 Unknown Rx Review of Systems Constitutional: no weight loss, no weight gain, no fever, no chills Ears, nose, mouth and throat: no ear pain, no ear discharge, no tinnitis, no decreased hearing, no nose pain, no nasal congestion Breasts: no change in shape, no swelling, no mass Cardiovascular: no orthopnea, no palpitations, no rapid/irregular heart beat, no edema, no syncope Respiratory: cough, cough with sputum, excessive sputum, shortness of breath, no congestion, no sleep apnea Gastrointestinal: no nausea, no vomiting, no diarrhea, no constipation, no roxanne nge in bowel habits Genitourinary Female: no pelvic pain, no flank pain, no menorrhagia, no dysuria, no urinary frequency, no urgency Rectal: no pain, no incontinence, no bleeding Musculoskeletal: no neck stiffness, no neck pain, no shooting arm pain, no arm numbness/tingling, no low back pain, no shooting leg pain Integumentary: no rash, no pruritis, no redness, no sores, no wounds Neurological: no paralysis, no weakness, no parathesias, no numbness, no seizures, no syncope Psychiatric: no anxiety, no memory loss, no hypersomnia, no suicidal ideation, no disorientation Endocrine: no cold intolerance, no heat intolerance, no polyphagia, no excessive thirst, no polydipsia, no polyuria Hematologic/Lymphatic: no easy bruising, no easy bleeding, no lymphadenopathy, no lymphedema Allergic/Immunologic: no allergic rhinitis, no wheezing Exam - Constitutional Vitals: Temp Pulse Resp BP Pulse Ox 98.3 F 69 18 139/79 100 12/06/18 17:20 12/06/18 18:15 12/06/18 18:15 12/06/18 17:20 12/06/18 17:35 General appearance: Present: mild distress, cachectic - EENT Eyes: Present: PERRL ENT: hearing intact, clear oral mucosa - Neck Neck: Present: supple, normal ROM - Respiratory Respiratory effort: labored Respiratory: bilateral: diminished, rhonchi - Cardiovascular Heart Sounds: Present: S1 & S2. Absent: rub, click - Extremities Extremities: pulses symmetrical, No edema Peripheral Pulses: within normal limits - Abdominal General gastrointestinal: Present: soft, non-tender, non-distended, normal bowel sounds Female genitourinary: Present: normal - Integumentary Integumentary: Present: clear, warm, dry - Musculoskeletal Musculoskeletal: generalized weakness - Psychiatric Psychiatric: appropriate mood/affect, intact judgment & insight - Neurologic Neurologic: CNII-XII intact, moves all extremities Results - Labs CBC & Chem 7: 12/06/18 17:37 12/06/18 17:37 Labs: Abnormal lab results 12/06/18 12/06/18 12/06/18 Range/Units 17:37 17:37 17:37 WBC 15.7 H (4.5-11.0) K/mm3 RDW 16.1 H (13.2-15.2) % Potassium 5.2 H (3.6-5.0) mmol/L BUN 18 H (7-17) mg/dL Creatinine 0.5 L (0.7-1.2) mg/dL Glucose 151 H (65-100) mg/dL Lactic Acid 2.20 H* (0.7-2.0) mmol/L Total Protein 6.0 L (6.3-8.2) g/dL Assessment and Plan - Patient Problems (1) Acute and chronic respiratory failure Current Visit: No Status: Acute Qualifiers: Respiratory failure complication: hypoxia Qualified Code(s): J96.21 - Acute and chronic respiratory failure with hypoxia Plan to address problem: Supplemental oxygen, nebulizer therapy, chest x ray, pulse oximetry, NIPPV as clinically indicated, CTA chest, (2) Pneumonia Current Visit: Yes Status: Acute Qualifiers: Pneumonia type: due to unspecified organism Laterality: right Lung location: lower lobe of lung Qualified Code(s): J18.1 - Lobar pneumonia, unspecified organism Plan to address problem: Pneumonia protocol: Chest x ray, blood cultures, IV antibiotic therapy, nebulize r therapy pulse oximetry, CBC, CMP (3) SIRS (systemic inflammatory response syndrome) Current Visit: Yes Status: Acute Plan to address problem: IV antibiotic therapy, CBC, CMP, Chest x ray, urinalysis, blood cultures, (4) Acidosis Current Visit: Yes Status: Acute Plan to address problem: IVF resuscitation therapy, repeat bmp. (5) COPD exacerbation Current Visit: Yes Status: Acute Plan to address problem: IV steroid therapy, chest x ray, supplemental oxygen, nebulizer therapy, NIPPV as clinically indicated, IV antibiotic therapy, (6) Severe malnutrition Current Visit: No Status: Acute Plan to address problem: Encourage increased protein intake, dietary supplementation. (7) DVT prophylaxis Current Visit: No Status: Acute Plan to address problem: SCD to BLE while in bed, prophylactic heparin
[2018-12-06] MEDS ORDERED: FIORICET PO PRN (19:17)
[2018-12-06] MEDS ORDERED: VANCOMYCIN PHARMACY TO DOSE IV SCH (20:00)
[2018-12-06] MEDS ORDERED: VANCOMYCIN IV ONE (20:00)
[2018-12-06] MEDS ORDERED: NACL 0.9% IV ONE (20:00)
[2018-12-06] MEDS ORDERED: VANCOMYCIN/NS 1 GM/250 ML 1 GM/250 ML BAG IV ONE (20:00)
[2018-12-06 20:02] LABS: Eosinophils % (Manual) 0 % (0.0-4.3); Total Cells Counted 100
[2018-12-06 20:03] LABS: Ovalocytes Few; Poikilocytosis Few
--- NOTE | 2018-12-06 20:55 | Cat Scan Report ---
CTA CHEST WITH IV CONTRAST INDICATION: Acute onset chest pain with dyspnea. TECHNIQUE: Axial CT images were obtained through the chest after injection of 100 mL IV contrast. 3 plane MIP re constructions were produced. All CT scans at this location are performed using CT dose reduction for ALARA by means of automated exposure control. COMPARISON: None available. FINDINGS: PULMONARY ARTERIES: No pulmonary emboli. AORTA AND ARTERIES: No acute abnormality. Moderate to severe coronary artery calcification. MEDIASTINUM: No mass, lymphadenopathy or other significant abnormality. The heart is normal in size w ithout a pericardial effusion. The trachea and main bronchi are patent and normal in caliber. LUNGS: Severe emphysema with large apical blebs. No acute or suspicious consolidation, nodule or mass . No pneumothorax or pleural effusion. ADDITIONAL FINDINGS: None. UPPER ABDOMEN: No acute findings. BONES: No significant osseous abnormality. IMPRESSION: 1. No CT evidence for pulmonary embolism. 2. Severe emphysema with large apical blebs, especially on the right. Signer Name: Chris Kearney MD Signed: 12/06/2018 8:50 PM Workstation Name: [id number]
[2018-12-06 21:42] LABS: Bilirubin,Urine NEG (Negative); Blood,Urine SM (Negative); Color,Urine Yellow (Yellow); Mucus,Urine FEW /HPF; Protein,Urine <15 mg/dL mg/dL (Negative); Urobilinogen,Urine < 2.0 mg/dL (<2.0)
[2018-12-06] MEDS ORDERED: PRAVACHOL PO SCH (22:00)
[2018-12-06] MEDS: ZITHROMAX 500 MG in NACL 0.9% 250ML 250 ML IV SCH (22:08)
[2018-12-06] MEDS ORDERED: ZOFRAN IV PRN (23:08)
[2018-12-06] MEDS ORDERED: SODIUM CHLORIDE FLUSH SYRINGE 10 ML IV PRN (23:08)
[2018-12-06] MEDS ORDERED: TYLENOL PO PRN (23:08)
[2018-12-06] MEDS: TESSALON PERLES PO SCH (23:27)
[2018-12-06] MEDS: COLACE PO SCH (23:27)
[2018-12-07] MEDS: PRAVACHOL PO SCH ×3 (01:20→21:46)
[2018-12-07] MEDS ORDERED: VANCOMYCIN/NS 500 MG/100 ML 500 MG/100 ML BAG IV SCH (06:00)
[2018-12-07 06:15] LABS: Hematocrit 35.3 % (30.3-42.9); Hemoglobin 11.7 gm/dl (10.1-14.3); Mean Corpuscular HGB Conc 33 % (30-34); Mean Corpuscular Volume 86 fl (79-97); Platelet Count 234 K/mm3 (140-440); Red Blood Count 4.11 M/mm3 (3.65-5.03); Red Cell Distribution Width 15.8 % (13.2-15.2)
[2018-12-07] MEDS: TESSALON PERLES PO SCH ×3 (06:26→21:59)
[2018-12-07 06:44] LABS: BUN/Creatinine Ratio 48; Blood Urea Nitrogen 19 mg/dL (7-17); Calcium 8.3 mg/dL (8.4-10.2); Hemolysis Index 17
[2018-12-07 07:40] LABS: Band Neutrophils # (Manual) 1.1 K/mm3; Basophils % (Manual) 0 % (0.0-1.8); Eosinophils % (Manual) 0 % (0.0-4.3); Total Cells Counted 100
[2018-12-07 07:41] LABS: RBC Morphology Normal
[2018-12-07] MEDS ORDERED: PROVENTIL IH ONE (09:24)
[2018-12-07] MEDS ORDERED: ROCEPHIN/NS 2 GM/100 ML 2 GM/100 ML BAG IV SCH (10:00)
[2018-12-07] MEDS: COLACE PO SCH ×2 (10:49→21:46)
[2018-12-07] MEDS: BABY ASPIRIN PO SCH (10:49)
[2018-12-07] MEDS: SODIUM CHLORIDE FLUSH SYRINGE 10 ML IV SCH ×2 (10:50→21:59)
[2018-12-07] MEDS: DUONEB *Not for PRN Use IH SCH ×3 (12:04→20:24)
[2018-12-07] MEDS: PULMICORT IH SCH ×2 (12:21→20:26)
[2018-12-07] MEDS: SPIRIVA IH SCH (12:21)
[2018-12-07] MEDS: BROVANA NEBU IH SCH ×2 (12:21→20:25)
[2018-12-07] MEDS: CARDIZEM CD PO SCH (12:34)
--- NOTE | 2018-12-07 14:07 | Progress Note ---
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 History Interval history: Review of systems Constitutional: No fevers, no malaise, no joint pains CVS: No chest pain, no orthopnea, no pedal edema GI: No abdominal pain, no diarrhea, no vomiting, no constipation Respiratory: c/o sob and wheezing Hospitalist Physical - Physical exam Narrative exam: General.: Appears well, no distress, nontoxic HEENT: Moist mucous membranes, extraocular muscles intact, no lymphadenopathy Neck: supple Cardiac: S1-S2 heard Lungs: diminished AE, wheezing Abdomen: soft , nontender, nondistended, bowel sounds positive Extremities: no edema clubbing or cyanosis Skin: no rash or lesions Neurologic: no gross focal deficits Psych: calm, and cooperative - Constitutional Vitals: Temp Pulse Resp BP Pulse Ox 98.3 F 87 22 130/67 98 12/07/18 12:24 12/07/18 12:34 12/07/18 12:24 12/07/18 12:34 12/07/18 12:24 General appearance: Present: mild distress, cachectic Results - Labs CBC & Chem 7: 12/07/18 05:42 12/07/18 05:42 Labs: Laboratory Last Values WBC 18.9 K/mm3 (4.5-11.0) H 12/07/18 05:42 RBC 4.11 M/mm3 (3.65-5.03) 12/07/18 05:42 Hgb 11.7 gm/dl (10.1-14.3) 12/07/18 05:42 Hct 35.3 % (30.3-42.9) 12/07/18 05:42 MCV 86 fl (79-97) 12/07/18 05:42 MCH 28 pg (28-32) 12/07/18 05:42 MCHC 33 % (30-34) 12/07/18 05:42 RDW 15.8 % (13.2-15.2) H 12/07/18 05:42 Plt Count 234 K/mm3 (140-440) 12/07/18 05:42 Add Manual Diff Complete 12/07/18 05:42 Total Counted 100 12/07/18 05:42 Seg Neutrophils % Teletypewriter Operator 12/07/18 05:42 Seg Neuts % (Manual) 89.0 % (40.0-70.0) H 12/07/18 05:42 6.0 % 12/07/18 05:42 4.0 % (13.4-35.0) L 12/07/18 05:42 Reactive Lymphs % (Man) 0 % 12/07/18 05:42 1.0 % (0.0-7.3) 12/07/18 05:42 0 % (0.0-4.3) 12/07/18 05:42 0 % (0.0-1.8) 12/07/18 05:42 0 % 12/07/18 05:42 0 % 12/07/18 05:42 0 % 12/07/18 05:42 0 % 12/07/18 05:42 Nucleated RBC % Not Reportable 12/07/18 05:42 Seg Neutrophils # Man 16.8 K/mm3 (1.8-7.7) H 12/07/18 05:42 Band Neutrophils # 1.1 K/mm3 12/07/18 05:42 0.8 K/mm3 (1.2-5.4) L 12/07/18 05:42 Abs React Lymphs (Man) 0.0 K/mm3 12/07/18 05:42 0.2 K/mm3 (0.0-0.8) 12/07/18 05:42 0.0 K/mm3 (0.0-0.4) 12/07/18 05:42 0.0 K/mm3 (0.0-0.1) 12/07/18 05:42 0.0 K/mm3 12/07/18 05:42 0.0 K/mm3 12/07/18 05:42 0.0 K/mm3 12/07/18 05:42 Blast Cells # 0.0 K/mm3 12/07/18 05:42 WBC Morphology Not Reportable 12/07/18 05:42 WBC Morphology TNR 12/07/18 05:42 Hypersegmented Neuts Not Reportable 12/07/18 05:42 Hyposegmented Neuts Not Reportable 12/07/18 05:42 Hypogranular Neuts Not Reportable 12/07/18 05:42 Not Reportable 12/07/18 05:42 Not Reportable 12/07/18 05:42 Not Reportable 12/07/18 05:42 Not Reportable 12/07/18 05:42 Not Reportable 12/07/18 05:42 Not Reportable 12/07/18 05:42 Appears normal 12/07/18 05:42 Not Reportable 12/07/18 05:42 Plt Clumps, EDTA Not Reportable 12/07/18 05:42 Not Reportable 12/07/18 05:42 Not Reportable 12/07/18 05:42 Not Reportable 12/07/18 05:42 Plt Morphology Comment Not Reportable 12/07/18 05:42 RBC Morphology Normal 12/07/18 05:42 Dimorphic RBCs Not Reportable 12/07/18 05:42 Not Reportable 12/07/18 05:42 Not Reportable 12/07/18 05:42 Not Reportable 12/07/18 05:42 Not Reportable 12/07/18 05:42 Not Reportable 12/07/18 05:42 Not Reportable 12/07/18 05:42 Not Reportable 12/07/18 05:42 Not Reportable 12/07/18 05:42 Not Reportable 12/07/18 05:42 Not Reportable 12/07/18 05:42 Not Reportable 12/07/18 05:42 Not Reportable 12/07/18 05:42 Not Reportable 12/07/18 05:42 Not Reportable 12/07/18 05:42 Not Reportable 12/07/18 05:42 Not Reportable 12/07/18 05:42 Not Reportable 12/07/18 05:42 Not Reportable 12/07/18 05:42 Not Reportable 12/07/18 05:42 Acanthocytes (Spur) Not Reportable 12/07/18 05:42 Rouleaux Not Reportable 12/07/18 05:42 Not Reportable 12/07/18 05:42 Not Reportable 12/07/18 05:42 Not Reportable 12/07/18 05:42 Not Reportable 12/07/18 05:42 Hem Pathologist Commnt No 12/07/18 05:42 Sodium 144 mmol/L (137-145) 12/07/18 05:42 Potassium 4.9 mmol/L (3.6-5.0) 12/07/18 05:42 Chloride 105.6 mmol/L (98-107) 12/07/18 05:42 Carbon Dioxide 29 mmol/L (22-30) 12/07/18 05:42 14 mmol/L 12/07/18 05:42 BUN 19 mg/dL (7-17) H 12/07/18 05:42 0.4 mg/dL (0.7-1.2) L 12/07/18 05:42 Estimated GFR > 60 ml/min 12/07/18 05:42 48 % 12/07/18 05:42 Glucose 109 mg/dL (65-100) H 12/07/18 05:42 Lactic Acid 1.90 mmol/L (0.7-2.0) 12/07/18 05:42 Calcium 8.3 mg/dL (8.4-10.2) L 12/07/18 05:42 0.20 mg/dL (0.1-1.2) 12/06/18 17:37 AST 20 units/L (5-40) 12/06/18 17:37 ALT 21 units/L (7-56) 12/06/18 17:37 58 units/L (35-129) 12/06/18 17:37 38 units/L (30-135) 12/06/18 17:37 CK-MB (CK-2) 2.2 ng/mL (0.0-4.0) 12/06/18 17:37 CK-MB (CK-2) Rel Index 5.7 (0-4) H 12/06/18 17:37 < 0.010 ng/mL (0.00-0.029) 12/06/18 17:37 6.0 g/dL (6.3-8.2) L 12/06/18 17:37 3.9 g/dL (3.9-5) 12/06/18 17:37 1.9 % 12/06/18 17:37 Yellow (Yellow) 12/06/18 20:00 Clear (Clear) 12/06/18 20:00 5.0 (5.0-7.0) 12/06/18 20:00 Ur Specific [place] 1.012 (1.003-1.030) 12/06/18 20:00 <15 mg/dl mg/dL (Negative) 12/06/18 20:00 Neg mg/dL (Negative) 12/06/18 20:00 Neg mg/dL (Negative) 12/06/18 20:00 Sm (Negative) 12/06/18 20:00 Neg (Negative) 12/06/18 20:00 Neg (Negative) 12/06/18 20:00 < 2.0 mg/dL (<2.0) 12/06/18 20:00 Ur Leukocyte Esterase Tr (Negative) 12/06/18 20:00 2.0 /HPF (0.0-6.0) 12/06/18 20:00 3.0 /HPF (0.0-6.0) 12/06/18 20:00 U Epithel Cells (Auto) < 1.0 /HPF (0-13.0) 12/06/18 20:00 Few /HPF 12/06/18 20:00 Active Medications - Current Medications Current Medications: Generic Name Dose Route Start Last Admin Trade Name Freq PRN Reason Stop Dose Admin Acetaminophen 650 mg 12/06/18 23:08 Tylenol PO Q4H PRN Pain MILD(1-3)/Fever >100.5/SIDDIQUI Acetaminophen/Butalbital/Caffeine 1 tab 12/06/18 19:17 Fioricet PO Q4H PRN Headache Albuterol/Ipratropium 1 ampul 12/07/18 12:00 12/07/18 12:04 Duoneb *Not For Prn Use* IH 1 ampul QIDRT ASHLYN Administration Arformoterol Tartrate 15 mcg 12/07/18 11:00 12/07/18 12:21 Brovana Nebu IH Not Given Q12HRT ASHLYN Aspirin 81 mg 12/07/18 10:00 12/07/18 10:49 Baby Aspirin PO 81 mg QDAY ASHLYN Administration Benzonatate 100 mg 12/06/18 22:00 12/07/18 13:35 Tessalon Perles PO Not Given Q8HR ASHLYN Budesonide 0.25 mg 12/07/18 11:00 12/07/18 12:21 Pulmicort IH Not Given Q12HRT [facility] Diltiazem HCl 120 mg 12/07/18 10:00 12/07/18 12:34 Cardizem Cd PO 120 mg QDAY ASHLYN Administration Docusate Sodium 100 mg 12/06/18 22:00 12/07/18 10:49 Colace PO 100 mg BID ASHLYN Administration Enoxaparin Sodium 40 mg 12/08/18 10:00 Lovenox SUB-Q QDAY ASHLYN Guaifenesin 10 ml 12/06/18 19:17 Guaifenesin Dm Syrup PO Q4H PRN Cough Ceftriaxone Sodium 2 gm in 100 mls @ 200 mls/hr 12/07/18 10:00 12/07/18 10:49 Rocephin/Ns 2 Gm/100 Ml IV 200 mls/hr Q24HR ASHLYN Administration Protocol Azithromycin 500 mg/ Sodium 250 mls @ 250 mls/hr 12/06/18 20:00 12/06/18 22:08 Chloride IV 12/10/18 20:59 250 mls/hr Q24H ASHLYN Administration Protocol Vancomycin HCl 750 mg/ Sodium 265 mls @ 166.667 mls/hr 12/07/18 18:00 Chloride IV Q12H ASHLYN Ondansetron HCl 4 mg 12/06/18 23:08 Zofran IV Q8H PRN Nausea And Vomiting Pravastatin Sodium 80 mg 12/06/18 23:30 12/07/18 01:44 Pravachol PO Not Given QHS ASHLYN Sodium Chloride 10 ml 12/07/18 10:00 12/07/18 10:50 Sodium Chloride Flush Syringe 10 Ml IV 10 ml BID ASHLYN Administration Sodium Chloride 10 ml 12/06/18 23:08 Sodium Chloride Flush Syringe 10 Ml IV PRN PRN LINE FLUSH Tiotropium [place] 1 puff 12/07/18 10:00 12/07/18 12:21 Spiriva IH Not Given Q24HRT [facility]
[2018-12-07] MEDS: SOLU-Medrol IV SCH ×2 (18:44→21:45)
[2018-12-07] MEDS: VANCOMYCIN 750 MG in NACL 0.9% 250ML 250 ML IV SCH (18:44)
[2018-12-07] MEDS: ZITHROMAX 500 MG in NACL 0.9% 250ML 250 ML IV SCH (20:15)
[2018-12-08] MEDS: SOLU-Medrol IV SCH ×3 (05:52→18:52)
[2018-12-08] MEDS: TESSALON PERLES PO SCH ×2 (05:53→13:03)
[2018-12-08] MEDS: VANCOMYCIN 750 MG in NACL 0.9% 250ML 250 ML IV SCH ×2 (05:54→18:52)
[2018-12-08] MEDS: PULMICORT IH SCH ×2 (08:10→21:28)
[2018-12-08] MEDS: BROVANA NEBU IH SCH ×2 (08:10→21:28)
[2018-12-08] MEDS: DUONEB *Not for PRN Use IH SCH ×4 (08:10→21:26)
[2018-12-08] MEDS: SPIRIVA IH SCH (09:52)
[2018-12-08] MEDS: CARDIZEM CD PO SCH (09:56)
[2018-12-08] MEDS: BABY ASPIRIN PO SCH (09:56)
[2018-12-08] MEDS: COLACE PO SCH ×2 (09:56→21:14)
[2018-12-08] MEDS: SODIUM CHLORIDE FLUSH SYRINGE 10 ML IV SCH ×2 (09:57→21:15)
--- NOTE | 2018-12-08 10:40 | Progress Note ---
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 History Interval history: Review of systems Constitutional: No fevers, no malaise, no joint pains CVS: No chest pain, no orthopnea, no pedal edema GI: No abdominal pain, no diarrhea, no vomiting, no constipation Respiratory: c/o sob and wheezing Hospitalist Physical - Physical exam Narrative exam: General.: Appears well, no distress, nontoxic HEENT: Moist mucous membranes, extraocular muscles intact, no lymphadenopathy Neck: supple Cardiac: S1-S2 heard Lungs: diminished AE, wheezing Abdomen: soft , nontender, nondistended, bowel sounds positive Extremities: no edema clubbing or cyanosis Skin: no rash or lesions Neurologic: no gross focal deficits Psych: calm, and cooperative - Constitutional Vitals: Temp Pulse Resp BP Pulse Ox 98.1 F 62 18 119/66 100 12/08/18 05:55 12/08/18 08:20 12/08/18 08:20 12/08/18 05:55 12/08/18 08:10 General appearance: Present: mild distress, cachectic Results - Labs CBC & Chem 7: 12/07/18 05:42 12/07/18 05:42 Labs: Laboratory Last Values WBC 18.9 K/mm3 (4.5-11.0) H 12/07/18 05:42 RBC 4.11 M/mm3 (3.65-5.03) 12/07/18 05:42 Hgb 11.7 gm/dl (10.1-14.3) 12/07/18 05:42 Hct 35.3 % (30.3-42.9) 12/07/18 05:42 MCV 86 fl (79-97) 12/07/18 05:42 MCH 28 pg (28-32) 12/07/18 05:42 MCHC 33 % (30-34) 12/07/18 05:42 RDW 15.8 % (13.2-15.2) H 12/07/18 05:42 Plt Count 234 K/mm3 (140-440) 12/07/18 05:42 Add Manual Diff Complete 12/07/18 05:42 Total Counted 100 12/07/18 05:42 Seg Neutrophils % Department Mgr 12/07/18 05:42 Seg Neuts % (Manual) 89.0 % (40.0-70.0) H 12/07/18 05:42 6.0 % 12/07/18 05:42 4.0 % (13.4-35.0) L 12/07/18 05:42 Reactive Lymphs % (Man) 0 % 12/07/18 05:42 1.0 % (0.0-7.3) 12/07/18 05:42 0 % (0.0-4.3) 12/07/18 05:42 0 % (0.0-1.8) 12/07/18 05:42 0 % 12/07/18 05:42 0 % 12/07/18 05:42 0 % 12/07/18 05:42 0 % 12/07/18 05:42 Nucleated RBC % Not Reportable 12/07/18 05:42 Seg Neutrophils # Man 16.8 K/mm3 (1.8-7.7) H 12/07/18 05:42 Band Neutrophils # 1.1 K/mm3 12/07/18 05:42 0.8 K/mm3 (1.2-5.4) L 12/07/18 05:42 Abs React Lymphs (Man) 0.0 K/mm3 12/07/18 05:42 0.2 K/mm3 (0.0-0.8) 12/07/18 05:42 0.0 K/mm3 (0.0-0.4) 12/07/18 05:42 0.0 K/mm3 (0.0-0.1) 12/07/18 05:42 0.0 K/mm3 12/07/18 05:42 0.0 K/mm3 12/07/18 05:42 0.0 K/mm3 12/07/18 05:42 Blast Cells # 0.0 K/mm3 12/07/18 05:42 WBC Morphology Not Reportable 12/07/18 05:42 WBC Morphology TNR 12/07/18 05:42 Hypersegmented Neuts Not Reportable 12/07/18 05:42 Hyposegmented Neuts Not Reportable 12/07/18 05:42 Hypogranular Neuts Not Reportable 12/07/18 05:42 Not Reportable 12/07/18 05:42 Not Reportable 12/07/18 05:42 Not Reportable 12/07/18 05:42 Not Reportable 12/07/18 05:42 Not Reportable 12/07/18 05:42 Not Reportable 12/07/18 05:42 Appears normal 12/07/18 05:42 Not Reportable 12/07/18 05:42 Plt Clumps, EDTA Not Reportable 12/07/18 05:42 Not Reportable 12/07/18 05:42 Not Reportable 12/07/18 05:42 Not Reportable 12/07/18 05:42 Plt Morphology Comment Not Reportable 12/07/18 05:42 RBC Morphology Normal 12/07/18 05:42 Dimorphic RBCs Not Reportable 12/07/18 05:42 Not Reportable 12/07/18 05:42 Not Reportable 12/07/18 05:42 Not Reportable 12/07/18 05:42 Not Reportable 12/07/18 05:42 Not Reportable 12/07/18 05:42 Not Reportable 12/07/18 05:42 Not Reportable 12/07/18 05:42 Not Reportable 12/07/18 05:42 Not Reportable 12/07/18 05:42 Not Reportable 12/07/18 05:42 Not Reportable 12/07/18 05:42 Not Reportable 12/07/18 05:42 Not Reportable 12/07/18 05:42 Not Reportable 12/07/18 05:42 Not Reportable 12/07/18 05:42 Not Reportable 12/07/18 05:42 Not Reportable 12/07/18 05:42 Not Reportable 12/07/18 05:42 Not Reportable 12/07/18 05:42 Acanthocytes (Spur) Not Reportable 12/07/18 05:42 Rouleaux Not Reportable 12/07/18 05:42 Not Reportable 12/07/18 05:42 Not Reportable 12/07/18 05:42 Not Reportable 12/07/18 05:42 Not Reportable 12/07/18 05:42 Hem Pathologist Commnt No 12/07/18 05:42 Sodium 144 mmol/L (137-145) 12/07/18 05:42 Potassium 4.9 mmol/L (3.6-5.0) 12/07/18 05:42 Chloride 105.6 mmol/L (98-107) 12/07/18 05:42 Carbon Dioxide 29 mmol/L (22-30) 12/07/18 05:42 14 mmol/L 12/07/18 05:42 BUN 19 mg/dL (7-17) H 12/07/18 05:42 0.4 mg/dL (0.7-1.2) L 12/07/18 05:42 Estimated GFR > 60 ml/min 12/07/18 05:42 48 % 12/07/18 05:42 Glucose 109 mg/dL (65-100) H 12/07/18 05:42 Lactic Acid 1.90 mmol/L (0.7-2.0) 12/07/18 05:42 Calcium 8.3 mg/dL (8.4-10.2) L 12/07/18 05:42 0.20 mg/dL (0.1-1.2) 12/06/18 17:37 AST 20 units/L (5-40) 12/06/18 17:37 ALT 21 units/L (7-56) 12/06/18 17:37 58 units/L (35-129) 12/06/18 17:37 38 units/L (30-135) 12/06/18 17:37 CK-MB (CK-2) 2.2 ng/mL (0.0-4.0) 12/06/18 17:37 CK-MB (CK-2) Rel Index 5.7 (0-4) H 12/06/18 17:37 < 0.010 ng/mL (0.00-0.029) 12/06/18 17:37 6.0 g/dL (6.3-8.2) L 12/06/18 17:37 3.9 g/dL (3.9-5) 12/06/18 17:37 1.9 % 12/06/18 17:37 Yellow (Yellow) 12/06/18 20:00 Clear (Clear) 12/06/18 20:00 5.0 (5.0-7.0) 12/06/18 20:00 Ur Specific [place] 1.012 (1.003-1.030) 12/06/18 20:00 <15 mg/dl mg/dL (Negative) 12/06/18 20:00 Neg mg/dL (Negative) 12/06/18 20:00 Neg mg/dL (Negative) 12/06/18 20:00 Sm (Negative) 12/06/18 20:00 Neg (Negative) 12/06/18 20:00 Neg (Negative) 12/06/18 20:00 < 2.0 mg/dL (<2.0) 12/06/18 20:00 Ur Leukocyte Esterase Tr (Negative) 12/06/18 20:00 2.0 /HPF (0.0-6.0) 12/06/18 20:00 3.0 /HPF (0.0-6.0) 12/06/18 20:00 U Epithel Cells (Auto) < 1.0 /HPF (0-13.0) 12/06/18 20:00 Few /HPF 12/06/18 20:00 Active Medications - Current Medications Current Medications: Generic Name Dose Route Start Last Admin Trade Name Freq PRN Reason Stop Dose Admin Acetaminophen 650 mg 12/06/18 23:08 Tylenol PO Q4H PRN Pain MILD(1-3)/Fever >100.5/SIDDIQUI Acetaminophen/Butalbital/Caffeine 1 tab 12/06/18 19:17 Fioricet PO Q4H PRN Headache Albuterol/Ipratropium 1 ampul 12/07/18 12:00 12/08/18 08:10 Duoneb *Not For Prn Use* IH 1 ampul QIDRT ASHLYN Administration Arformoterol Tartrate 15 mcg 12/07/18 11:00 12/08/18 08:10 Brovana Reinaldou IH Not Given Q12HRT ASHLYN Aspirin 81 mg 12/07/18 10:00 12/08/18 09:56 Baby Aspirin PO 81 mg QDAY ASHLYN Administration Benzonatate 100 mg 12/06/18 22:00 12/08/18 05:53 Tessalon Perles PO Not Given Q8HR ASHLYN Budesonide 0.25 mg 12/07/18 11:00 12/08/18 08:10 Pulmicort IH Not Given Q12HRT [facility] Diltiazem HCl 120 mg 12/07/18 10:00 12/08/18 09:56 Cardizem Cd PO 120 mg QDAY ASHLYN Administration Docusate Sodium 100 mg 12/06/18 22:00 12/08/18 09:56 Colace PO 100 mg BID ASHLYN Administration Enoxaparin Sodium 40 mg 12/08/18 10:00 Lovenox SUB-Q QDAY ASHLYN Guaifenesin 10 ml 12/06/18 19:17 Guaifenesin Dm Syrup PO Q4H PRN Cough Azithromycin 500 mg/ Sodium 250 mls @ 250 mls/hr 12/06/18 20:00 12/07/18 20:15 Chloride IV 12/10/18 20:59 250 mls/hr Q24H ASHLYN Administration Protocol Vancomycin HCl 750 mg/ Sodium 265 mls @ 166.667 mls/hr 12/07/18 18:00 12/08/18 05:54 Chloride IV 166.667 mls/hr Q12H ASHLYN Administration Methylprednisolone Sodium Succinate 60 mg 12/07/18 15:00 12/08/18 05:52 Solu-Medrol IV 60 mg Q8HR ASHLYN Administration Ondansetron HCl 4 mg 12/06/18 23:08 Zofran IV Q8H PRN Nausea And Vomiting Pravastatin Sodium 80 mg 12/06/18 23:30 12/07/18 21:46 Pravachol PO Not Given QHS ASHLYN Sodium Chloride 10 ml 12/07/18 10:00 12/08/18 09:57 Sodium Chloride Flush Syringe 10 Ml IV 10 ml BID ASHLYN Administration Sodium Chloride 10 ml 12/06/18 23:08 Sodium Chloride Flush Syringe 10 Ml IV PRN PRN LINE FLUSH Tiotropium [place] 1 puff 12/07/18 10:00 12/08/18 09:52 Spiriva IH Not Given Q24HRT [facility]
--- NOTE | 2018-12-08 11:12 | Gastroenterology Consultation ---
History of Present Illness - Reason for Consult Consult date: 12/08/18 epigastric pain Requesting physician: CHRISTIAN HENRY - History of Present Illness Patient is a 63 y/o female with PMH of malnutrition, COPD, chronic respiratory failure (on home O2), and SVT (on cardizem) who was admitted with respiratory distress 2/2 COPD exacerbation complicated by pneumonia (currently being tx with antibiotics). GI has been consulted for epigastric pain. This morning patient was resting in bed w/o acute distress. She reports chronic intermittent abdominal pain that is predominately in lower abdomen but occasional is experienced in upper abdomen but states she has no current pain. Admits to also having chronic constipation with associated bloating as well. Pain is not correlated with eating. Symptoms are improved after having a BM (last BM was yesterday). Takes stool softeners at home as needed with minimal results. Weight has been stable per patient. Denies N/V, dysphagia, odynophagia, reflux/regurgitation, signs of bleeding, or diarrhea. Currently tolerating diet. Takes daily ASA. No prior EGD or colonoscopy. No known Fhx of GI cancers. Past History Past Medical History: COPD, other (SVT, Severe Malnutrition) Past Surgical History: , Other (Lung biopsy) Social history: single. denies: smoking, alcohol abuse, prescription drug abuse Family history: hypertension Medications and Allergies Allergies Allergy/AdvReac Type Severity Reaction Status Date / Time codeine Allergy Unknown Verified 08/01/15 12:17 Home Medications Medication Instructions Recorded Confirmed Last Taken Type Aspirin [Aspirin BABY CHEW TAB] 81 mg PO QDAY 03/01/18 12/07/18 12/06/18 History Budesonide/Formoterol Fumarate 10.2 gm IH BID 30 Days hfa.aer.ad 06/06/1811/24 Unknown Rx [Symbicort 160-4.5 Mcg Inhaler] Ipratropium/Albuterol Sulfate 1 ampul IH TIDRT #30 ampul.neb 06/06/18 12/07/18 Unknown Rx [DUONEB *Not for PRN Use*] dilTIAZem CD [Cardizem CD] 120 mg PO QDAY #30 capsule 06/06/18 12/07/18 12/06/18 Rx Active Meds: Active Medications Acetaminophen (Tylenol) 650 mg PO Q4H PRN PRN Reason: Pain MILD(1-3)/Fever >100.5/SIDDIQUI Acetaminophen/Butalbital/Caffeine (Fioricet) 1 tab PO Q4H PRN PRN Reason: Headache Albuterol/Ipratropium (Duoneb *Not For Prn Use*) 1 ampul IH QIDRT [facility] Last Admin: 12/08/18 08:10 Dose: 1 ampul Documented by: Arformoterol Tartrate (Brovana Nebu) 15 mcg IH Q12HRT [facility] Last Admin: 12/08/18 08:10 Dose: Not Given Documented by: Aspirin (Baby Aspirin) 81 mg PO QDAY [facility] Last Admin: 12/08/18 09:56 Dose: 81 mg Documented by: Benzonatate (Tessalon Perles) 100 mg PO Q8HR [facility] Last Admin: 12/08/18 05:53 Dose: Not Given Documented by: Budesonide (Pulmicort) 0.25 mg IH Q12HRT [facility] Last Admin: 12/08/18 08:10 Dose: Not Given Documented by: Diltiazem HCl (Cardizem Cd) 120 mg PO QDAY [facility] Last Admin: 12/08/18 09:56 Dose: 120 mg Documented by: Docusate Sodium (Colace) 100 mg PO BID [facility] Last Admin: 12/08/18 09:56 Dose: 100 mg Documented by: Enoxaparin Sodium (Lovenox) 40 mg SUB-Q QDAY [facility] Guaifenesin (Guaifenesin Dm Syrup) 10 ml PO Q4H PRN PRN Reason: Cough Azithromycin 500 mg/ Sodium (Chloride) 250 mls @ 250 mls/hr IV Q24H [facility]; Protocol Stop: 12/10/18 20:59 Last Admin: 12/07/18 20:15 Dose: 250 mls/hr Documented by: Vancomycin HCl 750 mg/ Sodium (Chloride) 265 mls @ 166.667 mls/hr IV Q12H [facility] Last Admin: 12/08/18 05:54 Dose: 166.667 mls/hr Documented by: Methylprednisolone Sodium Succinate (Solu-Medrol) 60 mg IV Q6HR [facility] Ondansetron HCl (Zofran) 4 mg IV Q8H PRN PRN Reason: Nausea And Vomiting Pravastatin Sodium (Pravachol) 80 mg PO QHS [facility] Last Admin: 12/07/18 21:46 Dose: Not Given Documented by: Sodium Chloride (Sodium Chloride Flush Syringe 10 Ml) 10 ml IV BID [facility] Last Admin: 12/08/18 09:57 Dose: 10 ml Documented by: Sodium Chloride (Sodium Chloride Flush Syringe 10 Ml) 10 ml IV PRN PRN PRN Reason: LINE FLUSH Tiotropium [place] (Spiriva) 1 puff IH Q24HRT [facility] Last Admin: 12/08/18 09:52 Dose: Not Given Documented by: medications reviewed/updated as required Review of Systems - Review of Systems All systems: negative Gastrointestinal: abdominal pain, constipation Exam - Constitutional Vital Signs: Temp Pulse Resp BP Pulse Ox 98.1 F 62 18 119/66 100 12/08/18 05:55 12/08/18 08:20 12/08/18 08:20 12/08/18 05:55 12/08/18 08:10 General appearance: no acute distress - EENT Eyes: PERRL, EOM intact ENT: hearing intact - Respiratory Respiratory: bilateral: diminished - Cardiovascular Rhythm: regular - Gastrointestinal General gastrointestinal: Present: soft, non-tender, non-distended, normal bowel sounds - Neurologic Neurological: alert and oriented x3 - Labs CBC & Chem 7: 12/07/18 05:42 12/07/18 05:42 Assessment and Plan 1.abdominal pain 2.constipation -WBC 18.9 -H/H and LFTs WNL -patient reports chronic intermittent abdominal pain that is predominately in lower abdomen but is occasionally in upper abdomen with associated chronic constipation and abd bloating. Symptoms are not correlated with eating and improved after having a BM. She has no current current abd pain, N/V, or signs of bleeding. Tolerating diet. -etiology-likely 2/2 constipation vs other -no plan for scope at this time (will consider based on clinical course once respiratory status is stable) -start on daily bowel regimen with Miralax, along with PPI -continue supportive care -will need screening colonoscopy at outpatient -further recommendations to follow
--- NOTE | 2018-12-08 11:15 | Consultation ---
History of Present Illness Consult date: 12/08/18 Requesting physician: CHRISTIAN HENRY Reason for consult: COPD History of present illness: 63 y/o, thin, frail female presents with worsening shortness of breath. patient with long standing history of COPD, followed by Dr. Britt Fay in [place]. Still wears O2 daily at 3 liters. No sick contacts, no chest pain, Past History Past Medical History: COPD, other (SVT, Severe Malnutrition) Past Surgical History: , Other (Lung biopsy) Social history: single. denies: smoking, alcohol abuse, prescription drug abuse Family history: hypertension Medications and Allergies Allergies Allergy/AdvReac Type Severity Reaction Status Date / Time codeine Allergy Unknown Verified 08/01/15 12:17 Home Medications Medication Instructions Recorded Confirmed Last Taken Type Aspirin [Aspirin BABY CHEW TAB] 81 mg PO QDAY 03/01/18 12/07/18 12/06/18 History Budesonide/Formoterol Fumarate 10.2 gm IH BID 30 Days hfa.aer.[email or web address] 06/06/18 12/07/18 Unknown Rx [Symbicort 160-4.5 Mcg Inhaler] Ipratropium/Albuterol Sulfate 1 ampul IH TIDRT #30 ampul.neb 06/06/18 12/07/18 Unknown Rx [DUONEB *Not for PRN Use*] dilTIAZem CD [Cardizem CD] 120 mg PO QDAY #30 capsule 06/06/18 12/07/18 12/06/18 Rx Active Meds: Active Medications Acetaminophen (Tylenol) 650 mg PO Q4H PRN PRN Reason: Pain MILD(1-3)/Fever >100.5/SIDDIQUI Acetaminophen/Butalbital/Caffeine (Fioricet) 1 tab PO Q4H PRN PRN Reason: Headache Albuterol/Ipratropium (Duoneb *Not For Prn Use*) 1 ampul IH QIDRT [facility] Last Admin: 12/08/18 08:10 Dose: 1 ampul Documented by: Arformoterol Tartrate (Reida Nebu) 15 mcg IH Q12HRT [facility] Last Admin: 12/08/18 08:10 Dose: Not Given Documented by: Aspirin (Baby Aspirin) 81 mg PO QDAY [facility] Last Admin: 12/08/18 09:56 Dose: 81 mg Documented by: Benzonatate (Tessalon Perles) 100 mg PO Q8HR [facility] Last Admin: 12/08/18 05:53 Dose: Not Given Documented by: Budesonide (Pulmicort) 0.25 mg IH Q12HRT [facility] Last Admin: 12/08/18 08:10 Dose: Not Given Documented by: Diltiazem HCl (Cardizem Cd) 120 mg PO QDAY [facility] Last Admin: 12/08/18 09:56 Dose: 120 mg Documented by: Docusate Sodium (Colace) 100 mg PO BID [facility] Last Admin: 12/08/18 09:56 Dose: 100 mg Documented by: Enoxaparin Sodium (Lovenox) 40 mg SUB-Q QDAY [facility] Guaifenesin (Guaifenesin Dm Syrup) 10 ml PO Q4H PRN PRN Reason: Cough Azithromycin 500 mg/ Sodium (Chloride) 250 mls @ 250 mls/hr IV Q24H [facility]; Prot ocol Stop: 12/10/18 20:59 Last Admin: 12/07/18 20:15 Dose: 250 mls/hr Documented by: Vancomycin HCl 750 mg/ Sodium (Chloride) 265 mls @ 166.667 mls/hr IV Q12H [facility] Last Admin: 12/08/18 05:54 Dose: 166.667 mls/hr Documented by: Methylprednisolone Sodium Succinate (Solu-Medrol) 60 mg IV Q6HR [facility] Ondansetron HCl (Zofran) 4 mg IV Q8H PRN PRN Reason: Nausea And Vomiting Pravastatin Sodium (Pravachol) 80 mg PO QHS [facility] Last Admin: 12/07/18 21:46 Dose: Not Given Documented by: Sodium Chloride (Sodium Chloride Flush Syringe 10 Ml) 10 ml IV BID [facility] Last Admin: 12/08/18 09:57 Dose: 10 ml Documented by: Sodium Chloride (Sodium Chloride Flush Syringe 10 Ml) 10 ml IV PRN PRN PRN Reason: LINE FLUSH Tiotropium Victor (Spiriva) 1 puff IH Q24HRT [facility] Last Admin: 12/08/18 09:52 Dose: Not Given Documented by: Physical Examination Vital signs: Vital Signs Temp Pulse Resp BP Pulse Ox 98.3 F 82 24 139/79 100 12/06/18 17:20 12/06/18 17:20 12/06/18 17:20 12/06/18 17:20 12/06/18 17:20 General appearance: no acute distress, other (emaciated) ENT: oropharynx dry Neck: supple, other (very thin neck, anatomy is showing) Effort: mildly labored Ascultation: Bilateral: diminished breath sounds, wheezes Percussion: Bilateral: not dull Tactile fremitus: Bilateral: normal Cardiovascular: regular rate and rhythm Gastrointestinal: normoactive bowel sounds, soft, non-tender, other (scaphoid ab domen) Results - Laboratory Findings CBC and BMP: 12/07/18 05:42 12/07/18 05:42 Abnormal lab findings: Abnormal Labs 12/06/18 12/06/18 12/06/18 17:37 17:37 17:37 WBC 15.7 H RDW 16.1 H Seg Neuts % (Manual) 86.0 H Lymphocytes % (Manual) 8.0 L Seg Neutrophils # Man 13.5 H Lymphocytes # (Manual) Basophils # (Manual) 0.2 H Potassium 5.2 H BUN 18 H Creatinine 0.5 L Glucose 151 H Lactic Acid 2.20 H* Calcium CK-MB (CK-2) Rel Index 5.7 H Total Protein 6.0 L 12/06/18 12/06/18 12/07/18 19:10 23:23 00:28 WBC RDW Seg Neuts % (Manual) Lymphocytes % (Manual) Seg Neutrophils # Man Lymphocytes # (Manual) Basophils # (Manual) Potassium BUN Creatinine Glucose Lactic Acid 2.30 H* 2.10 H* 2.70 H* Calcium CK-MB (CK-2) Rel Index Total Protein 12/07/18 12/07/18 05:42 05:42 WBC 18.9 H RDW 15.8 H Seg Neuts % (Manual) 89.0 H Lymphocytes % (Manual) 4.0 L Seg Neutrophils # Man 16.8 H Lymphocytes # (Manual) 0.8 L Basophils # (Manual) Potassium BUN 19 H Creatinine 0.4 L Glucose 109 H Lactic Acid Calcium 8.3 L CK-MB (CK-2) Rel Index Total Protein - Diagnostic Findings CT scan - chest: image reviewed Assessment and Plan 63 y/o female with known COPD and chronic respiratory failure admitted with COPD exacerbation 1. Change steroids to q6 hour dosing 2. Continue BID Pulmicort and Brovana 3. Ok with scheduled duonebs for now but will likely change in the next 24 hours. 4. Will speak to CM about placement
[2018-12-08] MEDS ORDERED: MIRALAX 3350 PO SCH (12:00)
[2018-12-08] MEDS: PROTONIX PO SCH (12:34)
[2018-12-08] MEDS: LOVENOX SUB-Q SCH (12:35)
[2018-12-08] MEDS ORDERED: TESSALON PERLES PO PRN (13:32)
[2018-12-08] MEDS ORDERED: MIRALAX 3350 PO PRN (13:32)
[2018-12-08] MEDS: ZITHROMAX 500 MG in NACL 0.9% 250ML 250 ML IV SCH (21:14)
[2018-12-08] MEDS: PRAVACHOL PO SCH (21:15)
[2018-12-09] MEDS: SOLU-Medrol IV SCH ×3 (00:36→12:38)
[2018-12-09] MEDS: VANCOMYCIN 750 MG in NACL 0.9% 250ML 250 ML IV SCH (05:24)
[2018-12-09] MEDS: DUONEB *Not for PRN Use IH SCH (07:46)
[2018-12-09] MEDS: BROVANA NEBU IH SCH (07:46)
[2018-12-09] MEDS: PULMICORT IH SCH (07:46)
[2018-12-09] MEDS: SPIRIVA IH SCH (08:02)
[2018-12-09] MEDS ORDERED: CEPACOL X STRENGTH MM PRN (08:34)
[2018-12-09] MEDS: PROTONIX PO SCH (09:45)
[2018-12-09] MEDS: CARDIZEM CD PO SCH (09:45)
[2018-12-09] MEDS: BABY ASPIRIN PO SCH (09:45)
[2018-12-09] MEDS: LOVENOX SUB-Q SCH (09:45)
[2018-12-09] MEDS: SODIUM CHLORIDE FLUSH SYRINGE 10 ML IV SCH (09:46)
[2018-12-09] MEDS: COLACE PO SCH (09:46)
--- NOTE | 2018-12-09 10:44 | Gastroenterology Progress Note ---
Assessment and Plan 1.abdominal pain 2.constipation -patient presents with COPD exacerbation with also c/o chronic intermittent abdominal pain that is predominately in lower abdomen but is occasionally in upper abdomen with associated chronic constipation and abd bloating. Symptoms are not correlated with eating and improved after having a BM. -etiology-likely 2/2 constipation vs other -clinically, patient reports feeling better with abd pain resolved. C/o now having loose stools with BMs x 4 yesterday after taking laxatives. No N/V. Tolerating diet. -no plan for scope at this time -recommend continued daily bowel regimen with Miralax (patient currently refusing further doses) -continue PPI -continue supportive care -consider endoscopic evaluation as outpatient once respiratory status is stable if symptoms persist -patient okay to be d/c per GI standpoint with f/u in clinic -will sign off, please call if needed Subjective Date of service: 12/09/18 Principal diagnosis: abdominal pain Interval history: Patient sitting on the side of the bed this am w/o acute distress. Denies abd pain or N/V. Reports constipation is now resolved but states her stool is now loose and is refusing to take any further laxatives/stool softeners at this time. Tolerating diet. Objective - Constitutional Vitals: Temp Pulse Resp BP Pulse Ox 97.4 F L 96 H 16 120/62 100 12/09/18 04:44 12/09/18 09:45 12/09/18 08:07 12/09/18 04:44 12/09/18 08:09 General appearance: no acute distress - Respiratory Respiratory effort: normal Respiratory: bilateral: diminished - Cardiovascular Rhythm: regular - Gastrointestinal General gastrointestinal: Present: soft, non-tender, non-distended, normal bowel sounds - Neurologic Neurological: alert and oriented x3 - Labs CBC & Chem 7: 12/07/18 05:42 12/07/18 05:42
--- NOTE | 2018-12-09 11:57 | Progress Note ---
Assessment and Plan Assessment and plan: Patient is a 63 yo woman with a history of chronic hypoxic respiratory failure on home 3 Liters O2 due to end-stage COPD who pw sob x 3 days. Acute on chronic respiratory failure with hypoxia: treat the COPD Acute COPD exacerbation: treat with steroids, abx, and nebs Leukocytosis, most likely due to steroids Pneumonia ruled out, CT neg for PNA: d/c IV Vancomycin SIRS (systemic inflammatory response syndrome) without organ dysfunction, poa, without evidence of infection DVT ppx, sq lovenox Disposition: await SNF placement History Interval history: Patient was seen and examined. Follow-up on current diagnosis of COPD. No overnight events reported to me. Patient denies any chest pain, shortness breath, nausea/vomiting or severe headaches. Imaging, nursing note, chart, labs and old chart reviewed. Discussed with patient. Hospitalist Physical - Physical exam Narrative exam: Gen: WDWN, NAD, Awake, Alert, Orientated HEENT: NCAT, EOMI, PERRL, OP Clear Neck: supple, no adenopathy, no thyromegaly, no JVD CVS/Heart: RRR, normal S1S2, pulses present bilaterally Chest/Lungs: diminished bs, Symmetrical chest expansion, good air entry bilaterally GI/Abdomen: soft, NTND, good bowel sounds, no guarding or rebound /Bladder: no suprapubic tenderness, no CVA or paraspinal tenderness Extermity/Skin: no c/c/e, no obvious rash MSK: FROM x 4 Neuro: CN 2-12 grossly intact, no new focal deficits Psych: calm - Constitutional Vitals: Temp Pulse Resp BP Pulse Ox 97.4 F L 96 H 16 120/62 100 12/09/18 04:44 12/09/18 09:45 12/09/18 08:07 12/09/18 04:44 12/09/18 08:09 Results - Labs CBC & Chem 7: 12/07/18 05:42 12/07/18 05:42 Labs: Laboratory Last Values WBC 18.9 K/mm3 (4.5-11.0) H 12/07/18 05:42 RBC 4.11 M/mm3 (3.65-5.03) 12/07/18 05:42 Hgb 11.7 gm/dl (10.1-14.3) 12/07/18 05:42 Hct 35.3 % (30.3-42.9) 12/07/18 05:42 MCV 86 fl (79-97) 12/07/18 05:42 MCH 28 pg (28-32) 12/07/18 05:42 MCHC 33 % (30-34) 12/07/18 05:42 RDW 15.8 % (13.2-15.2) H 12/07/18 05:42 Plt Count 234 K/mm3 (140-440) 12/07/18 05:42 Add Manual Diff Complete 12/07/18 05:42 Total Counted 100 12/07/18 05:42 Seg Neutrophils % Nutritional Assistant 12/07/18 05:42 Seg Neuts % (Manual) 89.0 % (40.0-70.0) H 12/07/18 05:42 6.0 % 12/07/18 05:42 4.0 % (13.4-35.0) L 12/07/18 05:42 Reactive Lymphs % (Man) 0 % 12/07/18 05:42 1.0 % (0.0-7.3) 12/07/18 05:42 0 % (0.0-4.3) 12/07/18 05:42 0 % (0.0-1.8) 12/07/18 05:42 0 % 12/07/18 05:42 0 % 12/07/18 05:42 0 % 12/07/18 05:42 0 % 12/07/18 05:42 Nucleated RBC % Not Reportable 12/07/18 05:42 Seg Neutrophils # Man 16.8 K/mm3 (1.8-7.7) H 12/07/18 05:42 Band Neutrophils # 1.1 K/mm3 12/07/18 05:42 0.8 K/mm3 (1.2-5.4) L 12/07/18 05:42 Abs React Lymphs (Man) 0.0 K/mm3 12/07/18 05:42 0.2 K/mm3 (0.0-0.8) 12/07/18 05:42 0.0 K/mm3 (0.0-0.4) 12/07/18 05:42 0.0 K/mm3 (0.0-0.1) 12/07/18 05:42 0.0 K/mm3 12/07/18 05:42 0.0 K/mm3 12/07/18 05:42 0.0 K/mm3 12/07/18 05:42 Blast Cells # 0.0 K/mm3 12/07/18 05:42 WBC Morphology Not Reportable 12/07/18 05:42 WBC Morphology TNR 12/07/18 05:42 Hypersegmented Neuts Not Reportable 12/07/18 05:42 Hyposegmented Neuts Not Reportable 12/07/18 05:42 Hypogranular Neuts Not Reportable 12/07/18 05:42 Not Reportable 12/07/18 05:42 Not Reportable 12/07/18 05:42 Not Reportable 12/07/18 05:42 Not Reportable 12/07/18 05:42 Not Reportable 12/07/18 05:42 Not Reportable 12/07/18 05:42 Appears normal 12/07/18 05:42 Not Reportable 12/07/18 05:42 Plt Clumps, EDTA Not Reportable 12/07/18 05:42 Not Reportable 12/07/18 05:42 Not Reportable 12/07/18 05:42 Not Reportable 12/07/18 05:42 Plt Morphology Comment Not Reportable 12/07/18 05:42 RBC Morphology Normal 12/07/18 05:42 Dimorphic RBCs Not Reportable 12/07/18 05:42 Not Reportable 12/07/18 05:42 Not Reportable 12/07/18 05:42 Not Reportable 12/07/18 05:42 Not Reportable 12/07/18 05:42 Not Reportable 12/07/18 05:42 Not Reportable 12/07/18 05:42 Not Reportable 12/07/18 05:42 Not Reportable 12/07/18 05:42 Not Reportable 12/07/18 05:42 Not Reportable 12/07/18 05:42 Not Reportable 12/07/18 05:42 Not Reportable 12/07/18 05:42 Not Reportable 12/07/18 05:42 Not Reportable 12/07/18 05:42 Not Reportable 12/07/18 05:42 Not Reportable 12/07/18 05:42 Not Reportable 12/07/18 05:42 Not Reportable 12/07/18 05:42 Not Reportable 12/07/18 05:42 Acanthocytes (Spur) Not Reportable 12/07/18 05:42 Rouleaux Not Reportable 12/07/18 05:42 Not Reportable 12/07/18 05:42 Not Reportable 12/07/18 05:42 Not Reportable 12/07/18 05:42 Not Reportable 12/07/18 05:42 Hem Pathologist Commnt No 12/07/18 05:42 Sodium 144 mmol/L (137-145) 12/07/18 05:42 Potassium 4.9 mmol/L (3.6-5.0) 12/07/18 05:42 Chloride 105.6 mmol/L (98-107) 12/07/18 05:42 Carbon Dioxide 29 mmol/L (22-30) 12/07/18 05:42 14 mmol/L 12/07/18 05:42 BUN 19 mg/dL (7-17) H 12/07/18 05:42 0.4 mg/dL (0.7-1.2) L 12/07/18 05:42 Estimated GFR > 60 ml/min 12/07/18 05:42 48 % 12/07/18 05:42 Glucose 109 mg/dL (65-100) H 12/07/18 05:42 Lactic Acid 1.90 mmol/L (0.7-2.0) 12/07/18 05:42 Calcium 8.3 mg/dL (8.4-10.2) L 12/07/18 05:42 0.20 mg/dL (0.1-1.2) 12/06/18 17:37 AST 20 units/L (5-40) 12/06/18 17:37 ALT 21 units/L (7-56) 12/06/18 17:37 58 units/L (35-129) 12/06/18 17:37 38 units/L (30-135) 12/06/18 17:37 CK-MB (CK-2) 2.2 ng/mL (0.0-4.0) 12/06/18 17:37 CK-MB (CK-2) Rel Index 5.7 (0-4) H 12/06/18 17:37 < 0.010 ng/mL (0.00-0.029) 12/06/18 17:37 6.0 g/dL (6.3-8.2) L 12/06/18 17:37 3.9 g/dL (3.9-5) 12/06/18 17:37 1.9 % 12/06/18 17:37 Yellow (Yellow) 12/06/18 20:00 Clear (Clear) 12/06/18 20:00 5.0 (5.0-7.0) 12/06/18 20:00 Ur Specific [place] 1.012 (1.003-1.030) 12/06/18 20:00 <15 mg/dl mg/dL (Negative) 12/06/18 20:00 Neg mg/dL (Negative) 12/06/18 20:00 Neg mg/dL (Negative) 12/06/18 20:00 Sm (Negative) 12/06/18 20:00 Neg (Negative) 12/06/18 20:00 Neg (Negative) 12/06/18 20:00 < 2.0 mg/dL (<2.0) 12/06/18 20:00 Ur Leukocyte Esterase Tr (Negative) 12/06/18 20:00 2.0 /HPF (0.0-6.0) 12/06/18 20:00 3.0 /HPF (0.0-6.0) 12/06/18 20:00 U Epithel Cells (Auto) < 1.0 /HPF (0-13.0) 12/06/18 20:00 Few /HPF 12/06/18 20:00 Active Medications - Current Medications Current Medications: Generic Name Dose Route Start Last Admin Trade Name Freq PRN Reason Stop Dose Admin Acetaminophen 650 mg 12/06/18 23:08 Tylenol PO Q4H PRN Pain MILD(1-3)/Fever >100.5/SIDDIQUI Acetaminophen/Butalbital/Caffeine 1 tab 12/06/18 19:17 12/09/18 04:53 Fioricet PO 1 tab Q4H PRN Administration Headache Albuterol/Ipratropium 1 ampul 12/09/18 14:00 Duoneb *Not For Prn Use* IH TIDRT ASHLYN Arformoterol Tartrate 15 mcg 12/09/18 20:00 Jessika Flores IH Q12HRT ASHLYN Aspirin 81 mg 12/07/18 10:00 12/09/18 09:45 Baby Aspirin PO 81 mg QDAY ASHLYN Administration Benzocaine/Menthol 1 each 12/09/18 08:34 12/09/18 10:22 Cepacol X Strength MM 1 each Q2HR PRN Administration Sore Throat Benzonatate 100 mg 12/08/18 13:32 12/08/18 18:53 Tessalon Perles PO 100 mg Q8HR PRN Administration Cough Budesonide 0.5 mg 12/09/18 20:00 Pulmicort IH Q12HRT [facility] Cefuroxime Axetil 500 mg 12/09/18 12:00 Ceftin PO Q12HR [facility] Diltiazem HCl 120 mg 12/07/18 10:00 12/09/18 09:45 Cardizem Cd PO 120 mg QDAY ASHLYN Administration Docusate Sodium 100 mg 12/06/18 22:00 12/09/18 09:46 Colace PO Not Given BID [facility] Enoxaparin Sodium 40 mg 12/08/18 10:00 12/09/18 09:45 Lovenox SUB-Q 40 mg QDAY ASHLYN Administration Guaifenesin 10 ml 12/06/18 19:17 Guaifenesin Dm Syrup PO Q4H PRN Cough Azithromycin 500 mg/ Sodium 250 mls @ 250 mls/hr 12/06/18 20:00 12/08/18 21:14 Chloride IV 12/10/18 20:59 250 mls/hr Q24H ASHLYN Administration Protocol Methylprednisolone Sodium Succinate 60 mg 12/08/18 12:00 12/09/18 05:25 Solu-Medrol IV 60 mg Q6HR ASHLYN Administration Ondansetron HCl 4 mg 12/06/18 23:08 Zofran IV Q8H PRN Nausea And Vomiting Pantoprazole Sodium 40 mg 12/08/18 12:00 12/09/18 09:45 Protonix PO 40 mg QDAY ASHLYN Administration Polyethylene Glycol 17 gm 12/08/18 13:32 Miralax 3350 PO QDAY PRN Constipation Pravastatin Sodium 80 mg 12/06/18 23:30 12/08/18 21:15 Pravachol PO 80 mg QHS ASHLYN Administration Sodium Chloride 10 ml 12/07/18 10:00 12/09/18 09:46 Sodium Chloride Flush Syringe 10 Ml IV 10 ml BID ASHLYN Administration Sodium Chloride 10 ml 12/06/18 23:08 Sodium Chloride Flush Syringe 10 Ml IV PRN PRN LINE FLUSH Tiotropium [place] 1 puff 12/07/18 10:00 12/09/18 08:02 Spiriva IH Not Given Q24HRT ASHLYN
--- NOTE | 2018-12-09 12:06 | Progress Note ---
Assessment and Plan 63 y/o female with known COPD and chronic respiratory failure admitted with COPD exacerbation 1. Continue steroids at current strength and dosing. 2. Continue BID Pulmicort and Brovana 3. Ok with scheduled duonebs, but will change to PRN. Patient has high anxiety and this may increase that. 4. Will speak to about placement Subjective Date of service: 12/09/18 Principal diagnosis: abdominal pain Interval history: no acute events. Spoke with CM who is working on placement. Objective Vital Signs - 12hr 12/09/18 12/09/18 12/09/18 04:44 07:46 07:47 Temperature 97.4 F L Pulse Rate 63 Pulse Rate [ 63 Anterior Bilateral Throughout] Respiratory 20 Rate Respiratory 16 Rate [Anterior Bilateral Throughout] Blood Pressure 120/62 O2 Sat by Pulse 100 100 Oximetry 12/09/18 12/09/18 12/09/18 08:07 08:09 09:45 Temperature Pulse Rate 96 H Pulse Rate [ 77 Anterior Bilateral Throughout] Respiratory Rate Respiratory 16 Rate [Anterior Bilateral Throughout] Blood Pressure O2 Sat by Pulse 100 Oximetry Constitutional: no acute distress, other (emaciated) ENT: oropharynx dry Neck: supple, other (very thin neck, anatomy is showing) Effort: mildly labored Ascultation: Bilateral: diminished breath sounds, wheezes Percussion: Bilateral: not dull Tactile fremitus: Bilateral: normal Cardiovascular: regular rate and rhythm Gastrointestinal: normoactive bowel sounds, soft, non-tender, other (scaphoid abdomen) CBC and BMP: 12/07/18 05:42 12/07/18 05:42 Abnormal lab findings: Abnormal Labs 12/06/18 12/06/18 12/06/18 17:37 17:37 17:37 WBC 15.7 H RDW 16.1 H Seg Neuts % (Manual) 86.0 H Lymphocytes % (Manual) 8.0 L Seg Neutrophils # Man 13.5 H Lymphocytes # (Manual) Basophils # (Manual) 0.2 H Potassium 5.2 H BUN 18 H Creatinine 0.5 L Glucose 151 H Lactic Acid 2.20 H* Calcium CK-MB (CK-2) Rel Index 5.7 H Total Protein 6.0 L 12/06/18 12/06/18 12/07/18 19:10 23:23 00:28 WBC RDW Seg Neuts % (Manual) Lymphocytes % (Manual) Seg Neutrophils # Man Lymphocytes # (Manual) Basophils # (Manual) Potassium BUN Creatinine Glucose Lactic Acid 2.30 H* 2.10 H* 2.70 H* Calcium CK-MB (CK-2) Rel Index Total Protein 12/07/18 12/07/18 05:42 05:42 WBC 18.9 H RDW 15.8 H Seg Neuts % (Manual) 89.0 H Lymphocytes % (Manual) 4.0 L Seg Neutrophils # Man 16.8 H Lymphocytes # (Manual) 0.8 L Basophils # (Manual) Potassium BUN 19 H Creatinine 0.4 L Glucose 109 H Lactic Acid Calcium 8.3 L CK-MB (CK-2) Rel Index Total Protein
[2018-12-09] MEDS ORDERED: DUONEB *Not for PRN Use IH (12:08)
[2018-12-09 12:28] VITALS: BP 115/67
[2018-12-09] MEDS ORDERED: CEFTIN PO SCH (13:00)
[2018-12-09] MEDS ORDERED: DUONEB *Not for PRN Use IH SCH (14:00)
--- NOTE | 2018-12-09 14:39 | Discharge Summary ---
Providers - Providers Date of Admission: 12/06/18 23:09 Date of discharge: 12/09/18 Attending physician: ROSA BROWN 12/08/18 08:20 Consult to Physician [CONS] Routine Comment: Consulting Provider: KARI STALLWORTH Physician Instructions: Reason For Exam: epigastric pain, pt requesting egd 12/08/18 10:39 Consult to Physician [CONS] Routine Comment: Consulting Provider: DESTINEE QUIJANO Physician Instructions: Reason For Exam: copd 12/08/18 11:51 Physical Therapy Evaluation and Treat [CONS] Routine Comment: Reason For Exam: difficulty in ambulation/ very SOB [facility] Condition: Stable Hospital course: Patient is a 63 yo woman with a history of chronic hypoxic respiratory failure on home 3 Liters O2 due to end-stage COPD who pw sob x 3 days. Acute on chronic respiratory failure with hypoxia: treat the COPD Acute COPD exacerbation: treat with steroids, abx, and nebs Leukocytosis, most likely due to steroids Pneumonia ruled out, CT neg for PNA: d/c IV Vancomycin SIRS (systemic inflammatory response syndrome) without organ dysfunction, poa, without evidence of infection DVT ppx, sq lovenox Disposition: await SNF placement Disposition: DC/[place]-03 SNF W [facility] Time spent for discharge: 35 minutes Core Measure Documentation - Palliative Care Palliative Care/ Comfort Measures: Not Applicable - Core Measures Any of the following diagnoses?: none - VTE Discharge Requirements Deep Vein Thrombosis/Pulmonary Embolism Present on Admission: No Has pt received <5 days of overlap therapy or INR<2.0: No Anticoagulant overlap therapy prescribed at discharge: No Contraindication No Overlap Therapy order at DC: Not Indicated Exam - Physical Exam Narrative exam: Gen: WDWN, NAD, Awake, Alert, Orientated HEENT: NCAT, EOMI, PERRL, OP Clear Neck: supple, no adenopathy, no thyromegaly, no JVD CVS/Heart: RRR, normal S1S2, pulses present bilaterally Chest/Lungs: diminished bs, Symmetrical chest expansion, good air entry bilaterally GI/Abdomen: soft, NTND, good bowel sounds, no guarding or rebound /Bladder: no suprapubic tenderness, no CVA or paraspinal tenderness Extermity/Skin: no c/c/e, no obvious rash MSK: FROM x 4 Neuro: CN 2-12 grossly intact, no new focal deficits Psych: calm - Constitutional Vitals: Temp Pulse Resp BP Pulse Ox 98.1 F 69 16 115/67 100 12/09/18 11:58 12/09/18 13:24 12/09/18 13:24 12/09/18 11:58 12/09/18 11:58 Plan Activity: other (no strenous activity unless cleared by primary provider) Diet: low salt Durable Medical Equipment Needed Upon Discharge: Oxygen Follow up with: LYDIA CHANOXFORD MD YOSHI [Primary Care Provider] - 3-5 Days DESTINEE QUIJANO MD [Staff Physician] - 7 Days Prescriptions: predniSONE [Deltasone] 1 dose PO QDAY 23 Days tab
[2018-12-09] MEDS ORDERED: PULMICORT IH SCH (20:00)
[2018-12-09] MEDS ORDERED: BROVANA NEBU IH SCH (20:00)
== END 2018-12-09 17:10 | DRG 189 ==
LOC: ED 17:08 → 3A 23:09
PROVIDERS: ADMIT Internal Medicine; ATTEND Internal Medicine
DX: J96.21 Acute and chronic respiratory failure with hypoxia (principal); E43 Unspecified severe protein-calorie malnutrition; J44.1 Chronic obstructive pulmonary disease with (acute) exacerbation; R65.10 Systemic inflammatory response syndrome (SIRS) of non-infectious origin without acute organ dysfunction; E87.2 Acidosis; D72.829 Elevated white blood cell count, unspecified; K59.00 Constipation, unspecified; T38.0X5A Adverse effect of glucocorticoids and synthetic analogues, initial encounter; Z99.81 Dependence on supplemental oxygen; Y92.89 Other specified places as the place of occurrence of the external cause; Z82.49 Family history of ischemic heart disease and other diseases of the circulatory system; Z88.5 Allergy status to narcotic agent; Z79.899 Other long term (current) drug therapy
CPT/HCPCS: 36415; 71045; 71275; 80048; 80053; 81001; 82140; 82550; 82553; 84484; 85007; 85025; 87116; 93005; 93010; 94640; 94760; 96365; 96366; 96367; 96375; G0378; A9270-GY; J0456; J0692; J0696; J1650; J2930; J3370; J3475; J7050; Q9967

== ENCOUNTER 2019-04-10 09:10 | Emergency (ER) | payer MEDICARE ==
[2019-04-10] MEDS ORDERED: SODIUM CHLORIDE 0.9% 1000 ML IV SOLN IV ONE (09:41)
[2019-04-10] MEDS ORDERED: cefTRIAXone/NS 2 GM/100 ML 2 GM/100 ML BAG IV ONE (09:41)
--- NOTE | 2019-04-10 09:43 | Emergency Department Report ---
ED Shortness of Breath HPI - General Chief Complaint: Dyspnea/Respdistress Stated Complaint: YURIY FEVER Time Seen by Provider: 04/10/19 09:40 Source: patient, EMS Mode of arrival: Stretcher Limitations: No Limitations - History of Present Illness Initial Comments: 64 YO FEMALE COMES TO ER WITH COUGH AND YURIY SINCE SATURDAY. PT HAS COPD AND IS ON HOME O2 3. PT TO ER VIA EMS. SHE DENIES FEVER OR CHILLS. DENIES CHEST PAIN. SHE QUIT SMOKING 1 Y AGO. PT KNOWN TO [facility] AND HAS BEEN SEEN MANY TIMES. SHE FOLLOWS WITH DR CAMPOS A PULMONOLGY MD OUTPATIENT AND HAS HAD A NEG LUNG BIOPSY IN THE PAST. SHE REPORTS SHE USES HER INHALER AT HOME BUT DOES NOT LIKE TO USE HER NEB. HER LAST ADMIT WAS NOVEMBER 2018 ECHO IN 2014 NORMAL WITH EF OF 40-45% RX CARDIZEM ASA PPI STATIN CORBY DANIEL MD Complaint: shortness of breath, cough -: Gradual, days(s) Known History Of: COPD Associated Symptoms: fever, cough Treatments Prior to Arrival: oxygen - Related Data Home Oxygen Therapy: Yes Home Oxygen Amount: 3 Liters Previous Rx's Medication Instructions Recorded Last Taken Type dilTIAZem CD [Cardizem CD] 120 mg PO QDAY #30 capsule 06/06/18 12/06/18 Rx Aspirin [Aspirin BABY CHEW TAB] 81 mg PO QDAY #15 12/09/18 12/06/18 Rx Budesonide/Formoterol Fumarate 10.2 gm IH BID 30 Days #1 12/09/18 Unknown Rx [Symbicort 160-4.5 Mcg Inhaler] hfa.aer.ad Ipratropium/Albuterol Sulfate 1 ampul IH TIDRT #30 ampul.neb 12/09/18 Unknown Rx [DUONEB *Not for PRN Use*] Pantoprazole [Protonix TAB] 40 mg PO QDAY #30 tablet 12/09/18 Unknown Rx Pravastatin [Pravachol] 2 tab PO QHS #60 tablet 12/09/18 Unknown Rx Azithromycin [Zithromax Z-PHOEBE] 250 mg PO DAILY #6 tablet 04/10/19 Unknown Rx Benzonatate [Tessalon Perles] 100 mg PO Q12H PRN #20 capsule 04/10/19 Unknown Rx Cetirizine HCl [ZyrTEC] 10 mg PO DAILY #30 capsule 04/10/19 Unknown Rx predniSONE [Deltasone] 50 mg PO QDAY #5 tab 04/10/19 Unknown Rx Allergies Allergy/AdvReac Type Severity Reaction Status Date / Time codeine Allergy Unknown Verified 08/01/15 12:17 ED Review of Systems ROS: Stated complaint: YURIY FEVER Other details as noted in HPI Comment: All other systems reviewed and negative ED Past Medical Hx - Past Medical History Previous Medical History?: Yes Hx Hypertension: Yes Hx CVA: No Hx Heart Attack/AMI: No Hx Congestive Heart Failure: No Hx Diabetes: No Hx Deep Vein Thrombosis: No Hx Pulmonary Embolism: No Hx GERD: Yes Hx Liver Disease: No Hx Renal Disease: No Hx of Cancer: No Hx Sickle Cell Disease: No Hx Arthritis: Yes Hx Headaches / Migraines: Yes Hx Seizures: No Hx Kidney Stones: No Hx Psychiatric Treatment: No Hx Asthma: No Hx COPD: Yes Hx Tuberculosis: No Hx Dementia: No Hx HIV: No Additional medical history: svt. dyslipidemia - Surgical History Past Surgical History?: Yes Additional Surgical History: 2: . Benign biopsy of left lung - Family History Family history: no significant - Social History Smoking Status: Former Smoker Substance Use Type: None - Medications Home Medications: Home Medications Medication Instructions Recorded Confirmed Last Taken Type dilTIAZem CD [Cardizem CD] 120 mg PO QDAY #30 capsule 06/06/18 12/07/18 12/06/18 Rx Aspirin [Aspirin BABY CHEW TAB] 81 mg PO QDAY #15 12/09/18 12/07/18 12/06/18 Rx Budesonide/Formoterol Fumarate 10.2 gm IH BID 30 Days #1 12/09/18 12/07/18 Unknown Rx [Symbicort 160-4.5 Mcg Inhaler] hfa.aer.ad Ipratropium/Albuterol Sulfate 1 ampul IH TIDRT #30 ampul.neb 12/09/18 12/07/18 Unknown Rx [DUONEB *Not for PRN Use*] Pantoprazole [Protonix TAB] 40 mg PO QDAY #30 tablet 12/09/18 Unknown Rx Pravastatin [Pravachol] 2 tab PO QHS #60 tablet 12/09/18 Unknown Rx Azithromycin [Zithromax Z-PHOEBE] 250 mg PO DAILY #6 tablet 11/15/19 Unknown Rx Benzonatate [Tessalon Perles] 100 mg PO Q12H PRN #20 capsule 04/10/19 Unknown Rx Cetirizine HCl [ZyrTEC] 10 mg PO DAILY #30 capsule 04/10/19 Unknown Rx predniSONE [Deltasone] 50 mg PO QDAY #5 tab 04/10/19 Unknown Rx ED Physical Exam - General Limitations: No Limitations General appearance: alert, in no apparent distress - Head Head exam: Present: atraumatic, normocephalic - Eye Eye exam: Present: normal appearance - ENT ENT exam: Present: mucous membranes moist - Neck Neck exam: Present: normal inspection - Respiratory Respiratory exam: Present: normal lung sounds bilaterally, wheezes. Absent: respiratory distress, rales, rhonchi, stridor, chest wall tenderness, accessory muscle use, decreased breath sounds, prolonged expiratory - Cardiovascular Cardiovascular Exam: Present: regular rate, normal rhythm, tachycardia. Absent: systolic murmur, diastolic murmur, rubs, gallop - GI/Abdominal GI/Abdominal exam: Present: soft, normal bowel sounds - Rectal Rectal exam: Present: deferred - Extremities Exam Extremities exam: Present: normal inspection - Back Exam Back exam: Present: normal inspection - Neurological Exam Neurological exam: Present: alert, oriented X3 - Psychiatric Psychiatric exam: Present: normal affect, normal mood - Skin Skin exam: Present: warm, dry, intact, normal color. Absent: rash ED Course Vital Signs 04/10/19 04/10/19 04/10/19 09:28 10:39 10:40 Temperature 100.1 F H Pulse Rate 112 H 112 H Pulse Rate [ 112 H Anterior Bilateral Throughout] Respiratory 25 H 20 Rate Respiratory 20 Rate [Anterior Bilateral Throughout] Blood Pressure 131/77 Blood Pressure 129/81 [Right] O2 Sat by Pulse 100 100 Oximetry 04/10/19 04/10/19 04/10/19 10:41 12:09 13:21 Temperature Pulse Rate 110 H 100 H Pulse Rate [ Anterior Bilateral Throughout] Respiratory 22 14 14 Rate Respiratory Rate [Anterior Bilateral Throughout] Blood Pressure Blood Pressure 135/63 135/64 [Right] O2 Sat by Pulse 100 98 100 Oximetry 04/10/19 04/10/19 13:44 13:46 Temperature 97.8 F Pulse Rate 88 Pulse Rate [ 90 Anterior Bilateral Throughout] Respiratory Rate Respiratory 20 Rate [Anterior Bilateral Throughout] Blood Pressure Blood Pressure [Right] O2 Sat by Pulse Oximetry - Reevaluation(s) Reevaluation #1: 04/10/19 11:14 reexam still wheezing 1 hour tx per RT ED Medical Decision Making - Lab Data Result diagrams: 04/10/19 09:38 04/10/19 09:38 - EKG Data -: EKG Interpreted by Me EKG shows normal: sinus rhythm Rate: normal - EKG Data When compared to previous EKG there are: no significant change Interpretation: no acute changes - Radiology Data Radiology results: report reviewed, image reviewed - Medical Decision Making Labs 04/10/19 04/10/19 04/10/19 09:38 09:38 09:38 WBC 6.3 RBC 4.35 Hgb 11.7 Hct 36.2 MCV 83 MCH 27 L MCHC 32 RDW 14.0 Plt Count 189 Lymph % (Auto) 10.2 L [place] % (Auto) 13.8 H Eos % (Auto) 0.7 Baso % (Auto) 0.5 Lymph # 0.6 L [place] # 0.9 H Eos # 0.0 Baso # 0.0 Seg Neutrophils % 74.8 H Seg Neutrophils # 4.7 POC ABG pH POC ABG pCO2 POC ABG pO2 POC ABG HCO3 POC ABG Total CO2 POC ABG O2 Sat POC ABG Base Excess FiO2 Sodium 140 Potassium 4.0 Chloride 95.9 L Carbon Dioxide 28 Anion Gap 20 BUN 9 Creatinine 0.4 L Estimated GFR > 60 BUN/Creatinine Ratio 23 Glucose 108 H Lactic Acid 0.80 Calcium 9.3 Magnesium Total Bilirubin < 0.20 AST 18 ALT 8 Alkaline Phosphatase 64 Troponin T Total Protein 7.5 Albumin 4.1 Albumin/Globulin Ratio 1.2 04/10/19 04/10/19 04/10/19 09:38 09:38 10:16 WBC RBC Hgb Hct MCV MCH MCHC RDW Plt Count Lymph % (Auto) [place] % (Auto) Eos % (Auto) Baso % (Auto) Lymph # [place] # Eos # Baso # Seg Neutrophils % Seg Neutrophils # POC ABG pH 7.384 POC ABG pCO2 54.9 H POC ABG pO2 118 H POC ABG HCO3 32.8 POC ABG Total CO2 34 POC ABG O2 Sat 98 POC ABG Base Excess 8 FiO2 32 Sodium Potassium Chloride Carbon Dioxide Anion Gap BUN Creatinine Estimated GFR BUN/Creatinine Ratio Glucose Lactic Acid Calcium Magnesium 1.80 Total Bilirubin AST ALT Alkaline Phosphatase Troponin T < 0.010 Total Protein Albumin Albumin/Globulin Ratio DUONEB AND MG ON ARRIVAL TO ER SOLUMEDROL/ROCEPHIN IV WHEEZING CONTINUED GIVEN 1 HOUR ALB/ATROVENT LABS NOTED WBC NORMAL XRAY NOTED VSS GIVEN D [employer]- CTA COMPLETED AND NEG PT FEELING BETTER. VS NORMALIZED WILL DC HOME WITH AE COPD. PT IS TO FOLLOW UP WITH PCP ON SATURDAY TO BE SURE SHE IS GETTING BETTER. Critical care attestation.: If time is entered above; I have spent that time in minutes in the direct care of this critically ill patient, excluding procedure time. ED Disposition Clinical Impression: COPD with exacerbation Disposition: DC TO HOME OR SELFCARE Is pt being admited?: No Does the pt Need Aspirin: No Condition: Stable Instructions: Chronic Obstructive Pulmonary Disease (ED) Additional Instructions: MEDS ORDERED CONTINUE HOME MEDS FOLLOW UP WITH PCP ON SATURDAY TO BE SURE YOU ARE GETTING BETTER DIET AND ACTIVITY TOLERATED HYDRATE WELL WITH WATER CONTINUE HOME NEBS AND INHALERS Prescriptions: predniSONE [Deltasone] 50 mg PO QDAY #5 tab Benzonatate [Tessalon Perles] 100 mg PO Q12H PRN #20 capsule PRN Reason: Cough Azithromycin [Zithromax Z-PHOEBE] 250 mg PO DAILY #6 tablet Cetirizine HCl [ZyrTEC] 10 mg PO DAILY #30 capsule Referrals: [facility] [Outside] - 3-5 Days Time of Disposition: 11:13
[2019-04-10] MEDS ORDERED: MAGNESIUM SULFATE 2 GM/50 ML BAG IV ONE (09:46)
[2019-04-10] MEDS ORDERED: ALBUTEROL 2.5 MG/3 ML NEBU IH ONE ×2 (09:46→11:12)
[2019-04-10] MEDS ORDERED: methylPREDNISolone Sod Succinate 125 MG/2 ML INJ IV ONE (09:46)
[2019-04-10] MEDS ORDERED: AZITHROMYCIN 500 MG in SODIUM CHLORIDE 0.9% 250ML 250 ML IV ONE (10:00)
--- NOTE | 2019-04-10 10:11 | XRay Report ---
CHEST 1 VIEW INDICATION: fever sob. COMPARISON: 12/06/2018 FINDINGS: Support devices: None. Heart: Within normal limits. Lungs/Pleura: Severe emphysematous changes are again identified. No convincing infiltrate, pleural fl uid or pneumothorax. Additional findings: None. IMPRESSION: Advanced emphysema. No acute process is appreciated. Signer Name: Shahbaz Rizo Jr, MD Signed: 04/10/2019 10:07 AM Workstation Name: [id number]
[2019-04-10 10:15] LABS: Basophils % (Auto) 0.5 % (0.0-1.8); Eosinophils % (Auto) 0.7 % (0.0-4.3); Hematocrit 36.2 % (30.3-42.9); Hemoglobin 11.7 gm/dl (10.1-14.3); Lymphocytes # (Auto) 0.6 K/mm3 (1.2-5.4); Lymphocytes % (Auto) 10.2 % (13.4-35.0); Mean Corpuscular HGB Conc 32 % (30-34); Mean Corpuscular Volume 83 fl (79-97); Monocytes # (Auto) 0.9 K/mm3 (0.0-0.8); Monocytes % (Auto) 13.8 % (0.0-7.3); Platelet Count 189 K/mm3 (140-440); Red Blood Count 4.35 M/mm3 (3.65-5.03)
[2019-04-10 10:33] LABS: Alanine Aminotransferase 8 units/L (7-56); Albumin 4.1 g/dL (3.9-5); BUN/Creatinine Ratio 23; Blood Urea Nitrogen 9 mg/dL (7-17); Calcium 9.3 mg/dL (8.4-10.2); Hemolysis Index 0
[2019-04-10] MEDS ORDERED: IPRATROPIUM 0.02% NEBU 2.5 ML IH ONE (11:12)
[2019-04-10] MEDS ORDERED: IBUPROFEN 800 MG TAB PO ONE (11:13)
[2019-04-10 12:15] LABS: Bilirubin,Urine NEG (Negative); Blood,Urine SM (Negative); Color,Urine Straw (Yellow); Mucus,Urine FEW /HPF; Protein,Urine <15 mg/dL mg/dL (Negative); Urobilinogen,Urine < 2.0 mg/dL (<2.0); WBC,Urine < 1.0 /HPF (0.0-6.0)
[2019-04-10 13:23] VITALS: BP 135/64
--- NOTE | 2019-04-10 15:52 | Cat Scan Report ---
CTA of the chest with 3D Reconstruction Indication: ,Shortness of breath Technique: TECHNIQUE: Axial CT images were obtained through the chest after injection of 100 cc of Omnipaque 350 IV contrast. 3 plane MIP reconstructions were produced. All CT scans at this location are performed using CT dose reduction for ALARA by means of automated exposure control. COMPARISON: CTA of the chest dated 12/06/2018 Automatic exposure control was utilized in an attempt to reduce radiation dose. Findings: Pulmonary arteries: The main pulmonary artery and right and left pulmonary artery branches fill satis factorily with contrast. No pulmonary embolus is seen. Lungs: Severe chronic changes of emphysema are again noted and appear unchanged Mediastinum: Heart size is normal. No adenopathy is seen. Aorta: Normal in diameter. No dissection seen within limits of this exam. Impression: No pulmonary embolus is seen Severe chronic changes of emphysema are again noted Signer Name: Cordell Jain MD Signed: 04/10/2019 3:47 PM Workstation Name: [id number]
== END 2019-04-10 18:00 | disposition home or self-care (01) ==
LOC: ED 09:10
DX: J44.1 Chronic obstructive pulmonary disease with (acute) exacerbation (principal); I10 Essential (primary) hypertension; K21.9 Gastro-esophageal reflux disease without esophagitis; G43.909 Migraine, unspecified, not intractable, without status migrainosus; E78.5 Hyperlipidemia, unspecified; Z87.891 Personal history of nicotine dependence; Z88.5 Allergy status to narcotic agent; Z79.82 Long term (current) use of aspirin; Z79.899 Other long term (current) drug therapy
CPT/HCPCS: 36415; 71045; 71275; 80053; 81001; 82140; 82803; 83735; 84484; 85025; 87040; 87086; 93005; 93010; 94640; 94644; 96365; 96367; 96368; 96375; 99285; J0456; J0696; J2930; J3475; J7030; J7050; Q9967

== ENCOUNTER 2021-10-14 11:42 | Inpatient (IN) | payer MEDICARE, OTHER ==
[2021-10-14] MEDS ORDERED: methylPREDNISolone Sod Succinate 125 MG/2 ML INJ IV ONE (12:23)
[2021-10-14] MEDS ORDERED: IPRATROPIUM 0.02% NEBU 2.5 ML IH ONE (12:23)
[2021-10-14] MEDS ORDERED: ALBUTEROL 2.5 MG/3 ML NEBU IH ONE (12:23)
--- NOTE | 2021-10-14 12:28 | Emergency Department Report ---
ED Shortness of Breath HPI - General Chief Complaint: Adult Asthma Stated Complaint: SOB Time Seen by Provider: 10/14/21 12:20 Source: patient Mode of arrival: Ambulatory Limitations: No Limitations - History of Present Illness Initial Comments: Patient is 66 years old female with history of COPD on home oxygen. Patient presented to the ER complaining of shortness of breath and difficulty breathing for the last few days. Patient denied any fever or chills. No chest pain. Patient stated that she is taking her inhaler but is not helping. MD Complaint: shortness of breath Known History Of: COPD - Related Data Previous Rx's Medication Instructions Recorded Last Taken Type dilTIAZem CD [Cardizem CD] 120 mg PO QDAY #30 capsule 06/06/18 10/13/21 Rx Aspirin [Aspirin BABY CHEW TAB] 81 mg PO QDAY #15 12/09/18 12/06/18 Rx Budesonide/Formoterol Fumarate 10.2 gm IH BID 30 Days #1 12/09/18 10/13/21 Rx [Symbicort 160-4.5 Mcg Inhaler] hfa.aer.ad Ipratropium/Albuterol Sulfate 1 ampul IH TIDRT #30 ampul.neb 12/09/18 Unknown Rx [DUONEB *Not for PRN Use*] predniSONE [Deltasone] 50 mg PO QDAY #5 tab 04/10/19 10/13/21 Rx Allergies Allergy/AdvReac Type Severity Reaction Status Date / Time codeine Allergy Unknown Verified 08/01/15 12:17 ED Review of Systems ROS: Stated complaint: SOB Other details as noted in HPI Comment: All other systems reviewed and negative Constitutional: denies: chills, fever Respiratory: cough, shortness of breath, SOB with exertion, SOB at rest, wheezing Cardiovascular: dyspnea on exertion. denies: chest pain, palpitations Gastrointestinal: denies: abdominal pain, nausea, vomiting Musculoskeletal: denies: back pain Neurological: denies: headache, weakness ED Past Medical Hx - Past Medical History Previous Medical History?: Yes Hx Hypertension: Yes Hx CVA: No Hx Heart Attack/AMI: No Hx Congestive Heart Failure: No Hx Diabetes: No Hx Deep Vein Thrombosis: No Hx Pulmonary Embolism: No Hx GERD: Yes Hx Liver Disease: No Hx Renal Disease: No Hx Sickle Cell Disease: No Hx Arthritis: Yes Hx Headaches / Migraines: Yes Hx Seizures: No Hx Kidney Stones: No Hx Psychiatric Treatment: No Hx Asthma: No Hx COPD: Yes Hx Tuberculosis: No Hx Dementia: No Hx HIV: No Additional medical history: svt. dyslipidemia - Surgical History Past Surgical History?: Yes Additional Surgical History: 2: . Benign biopsy of left lung - Social History Smoking Status: Never Smoker Substance Use Type: None - Medications Home Medications: Home Medications Medication Instructions Recorded Confirmed Last Taken Type dilTIAZem CD [Cardizem CD] 120 mg PO QDAY #30 capsule 06/06/18 10/14/21 10/13/21 Rx Aspirin [Aspirin BABY CHEW TAB] 81 mg PO QDAY #15 12/09/18 10/14/21 12/06/18 Rx Budesonide/Formoterol Fumarate 10.2 gm IH BID 30 Days #1 12/09/18 10/14/21 10/13/21 Rx [Symbicort 160-4.5 Mcg Inhaler] hfa.aer.ad Ipratropium/Albuterol Sulfate 1 ampul IH TIDRT #30 ampul.neb 12/09/18 10/14/21 Unknown Rx [DUONEB *Not for PRN Use*] predniSONE [Deltasone] 50 mg PO QDAY #5 tab 04/10/19 10/14/21 10/13/21 Rx ED Physical Exam - General Limitations: No Limitations General appearance: alert, in distress - Head Head exam: Present: atraumatic, normocephalic, normal inspection - Eye Eye exam: Present: normal appearance - ENT ENT exam: Present: normal exam, normal orophraynx, mucous membranes moist - Neck Neck exam: Present: normal inspection, full ROM. Absent: tenderness, meningismus - Respiratory Respiratory exam: Present: respiratory distress, wheezes, decreased breath sounds, prolonged expiratory. Absent: rhonchi, accessory muscle use - Cardiovascular Cardiovascular Exam: Present: tachycardia. Absent: diastolic murmur - GI/Abdominal GI/Abdominal exam: Present: soft, normal bowel sounds. Absent: distended, tenderness, guarding, rebound, rigid, organomegaly, mass, bruit, pulsatile mass, hernia - Extremities Exam Extremities exam: Present: normal inspection, full ROM, normal capillary refill. Absent: tenderness - Back Exam Back exam: Present: normal inspection, full ROM. Absent: CVA tenderness (R), CVA tenderness (L) - Neurological Exam Neurological exam: Present: alert, oriented X3, CN II-XII intact, normal gait, reflexes normal. Absent: motor sensory deficit - Psychiatric Psychiatric exam: Present: normal mood - Skin Skin exam: Present: warm, intact, normal color ED Course Vital Signs 10/14/21 10/14/21 10/14/21 11:47 12:04 13:00 Pulse Rate 108 H 89 Respiratory 16 25 H 24 Rate Blood Pressure 140/80 134/60 [Left] O2 Sat by Pulse 99 100 100 Oximetry ED Medical Decision Making - Lab Data Result diagrams: 10/14/21 12:53 10/14/21 12:53 - EKG Data -: EKG Interpreted by Ia EKG shows normal: sinus rhythm Rate: normal - EKG Data Interpretation: no acute changes - Radiology Data Radiology results: report reviewed - Medical Decision Making Patient is 66 years old female with history of COPD on home oxygen. Patient presented to the ER complaining of shortness of breath and difficulty breathing for the last few days. Patient denied any fever or chills. No chest pain. Patient stated that she is taking her inhaler but is not helping. EKG is unremarkable. Patient received albuterol, Atrovent and Solu-Medrol. Chest x-ray is negative for acute finding. Labs reviewed and showed leukocytosis of 19,000. Patient received Levaquin. I discussed the patient with Dr. Szymanski, he agreed to admit the patient to medical service for further management. Critical Care Time: Yes Critical care time in (mins) excluding proc time.: 35 Critical care attestation.: If time is entered above; I have spent that time in minutes in the direct care of this critically ill patient, excluding procedure time. ED Disposition Clinical Impression: Acute and chronic respiratory failure, Acute exacerbation of COPD with asthma Disposition: ADMITTED INPATIENT Is pt being admited?: Yes Condition: Stable
[2021-10-14 13:15] LABS: Basophils # (Auto) 0.1 K/mm3 (0.0-0.1); Basophils % (Auto) 0.3 % (0.0-1.8); Hematocrit 30.3 % (30.3-42.9); Hemoglobin 9.8 gm/dl (10.1-14.3); Lymphocytes # (Auto) 1.2 K/mm3 (1.2-5.4); Lymphocytes % (Auto) 6.1 % (13.4-35.0); Mean Corpuscular HGB Conc 32 % (30-34); Mean Corpuscular Volume 76 fl (79-97); Monocytes # (Auto) 0.7 K/mm3 (0.0-0.8); Monocytes % (Auto) 3.8 % (0.0-7.3); Platelet Count 283 K/mm3 (140-440)
[2021-10-14 13:25] LABS: INR 0.85 (0.87-1.13)
[2021-10-14 13:30] LABS: Blood Urea Nitrogen 20 mg/dL (7-17); Calcium 9.4 mg/dL (8.4-10.2); Hemolysis Index 74
[2021-10-14 13:32] LABS: BUN/Creatinine Ratio 33
--- NOTE | 2021-10-14 13:38 | XRay Report ---
CHEST 1 VIEW INDICATION / CLINICAL INFORMATION: Dyspnea. COMPARISON: 04/10/2019 FINDINGS: SUPPORT DEVICES: None. HEART / MEDIASTINUM: No significant abnormality. LUNGS / PLEURA: The lungs are hyperinflated consistent with COPD. The lungs are otherwise grossly stephanie ar without evidence for superimposed acute disease. Postsurgical changes noted in the left midlung. N o pneumothorax. ADDITIONAL FINDINGS: No significant additional findings. IMPRESSION: 1. COPD. No acute pulmonary or pleural disease. Signer Name: Keiko Lewis MD Signed: 10/14/2021 1:33 PM Workstation Name: [id number]
[2021-10-14 15:19] LABS: ABG Base Excess 2.6 mmol/L (-2.0-3.0); ABG HCO3 28.5 mmol/L (20.0-26.0); ABG Methemoglobin 0.5 % (0.0-1.5); ABG Oxygen Saturation 97.8 % (95.0-99.0); ABG PCO2 50.2 mm Hg; ABG PH 7.371 pH Units (7.350-7.450); ABG PO2 108.7 mm Hg (80.0-90.0)
--- NOTE | 2021-10-14 15:30 | Event Note ---
Date: 10/14/21 Received call from [facility] on behalf of Dr Boyd on this patient and spoke with Ms Arango who agreed to have this patient admitted to our hospital and that Friant will call back tomorrow to check on the patient for progress.
[2021-10-14] MEDS ORDERED: ACETAMINOPHEN 325 MG TAB PO PRN (17:24)
[2021-10-14] MEDS ORDERED: ONDANSETRON 4 MG/2 ML INJ IV PRN ×2 (17:24→23:37)
[2021-10-14] MEDS ORDERED: MORPHINE 2 MG/1 ML INJ IV PRN (17:25)
[2021-10-14] MEDS ORDERED: METOCLOPRAMIDE 10 MG TAB PO PRN (23:37)
[2021-10-14] MEDS ORDERED: oxyCODONE /ACETAMINOPHEN 5-325MG TAB PO PRN (23:37)
[2021-10-14] MEDS ORDERED: IPRATROPIUM/ALBUTEROL SULFATE 3 ML AMPUL.NEB IH PRN (23:43)
[2021-10-15] MEDS: methylPREDNISolone Sod Succinate 125 MG/2 ML INJ IV SCH ×3 (00:17→16:41)
[2021-10-15] MEDS ORDERED: ALBUTEROL 2.5 MG/3 ML NEBU IH PRN (00:18)
[2021-10-15] MEDS: ACETAMINOPHEN 325 MG TAB PO PRN ×2 (04:57→22:13)
[2021-10-15 05:22] LABS: Hematocrit 31.7 % (30.3-42.9); Hemoglobin 9.7 gm/dl (10.1-14.3); Mean Corpuscular HGB Conc 31 % (30-34); Mean Corpuscular Volume 78 fl (79-97); Platelet Count 314 K/mm3 (140-440); Red Blood Count 4.08 M/mm3 (3.65-5.03); Red Cell Distribution Width 17.8 % (13.2-15.2)
[2021-10-15 05:42] LABS: Alanine Aminotransferase 12 units/L (7-56); Albumin 4.2 g/dL (3.9-5); Blood Urea Nitrogen 20 mg/dL (7-17); Calcium 9.4 mg/dL (8.4-10.2); Hemolysis Index 1
[2021-10-15 05:43] LABS: BUN/Creatinine Ratio 40
[2021-10-15 06:51] LABS: Monocytes % (Manual) 0 % (0.0-7.3); Total Cells Counted 100
[2021-10-15 06:52] LABS: Anisocytosis 1+; Basophils % (Manual) 0 % (0.0-1.8); Eosinophils % (Manual) 0 % (0.0-4.3); Platelet Estimate Consistent w Auto
--- NOTE | 2021-10-15 06:57 | History and Physical Report ---
History of Present Illness Date of examination: 10/14/21 Date of admission: 10/14/21 17:25 Chief complaint: Shortness of breath and wheezing for 4 to 7 days History of present illness: Patient is 66 years old female with history of COPD on home oxygen. Patient presented to the ER complaining of shortness of breath and difficulty breathing for the last few days. Patient denied any fever or chills. No chest pain. Patient stated that she is taking her inhaler but is not helping. Cough productive of mucoid sputum. No fever or chills. Patient pronounced to the [facility] - Past Medical History --Previous Medical History?: Yes --Hypertension: Yes --GERD: Yes --Arthritis: Yes --Headaches / Migraines: Yes --COPD: Yes --Additional medical history: svt. dyslipidemia - Surgical History --Past Surgical History?: Yes --Additional Surgical History: 2: . Benign biopsy of left lung - Social History --Smoking Status: Never Smoker --Substance Use Type: None Review of Systems ROS: Stated complaint: SOB Other details as noted in HPI Comment: All other systems reviewed and negative Constitutional: denies: chills, fever Respiratory: cough, shortness of breath, SOB with exertion, SOB at rest, wheezing Cardiovascular: dyspnea on exertion. denies: chest pain, palpitations Gastrointestinal: denies: abdominal pain, nausea, vomiting Musculoskeletal: denies: back pain Neurological: denies: headache, weakness Medications and Allergies Allergies Allergy/AdvReac Type Severity Reaction Status Date / Time codeine Allergy Unknown Verified 08/01/15 12:17 Home Medications Medication Instructions Recorded Confirmed Last Taken Type dilTIAZem CD [Cardizem CD] 120 mg PO QDAY #30 capsule 06/06/18 10/14/21 10/13/21 Rx Aspirin [Aspirin BABY CHEW TAB] 81 mg PO QDAY #15 12/09/18 10/14/21 12/06/18 Rx Budesonide/Formoterol Fumarate 10.2 gm IH BID 30 Days #1 12/09/18 10/14/21 10/13/21 Rx [Symbicort 160-4.5 Mcg Inhaler] hfa.aer.ad Ipratropium/Albuterol Sulfate 1 ampul IH TIDRT #30 ampul.neb 12/09/18 10/14/21 Unknown Rx [DUONEB *Not for PRN Use*] predniSONE [Deltasone] 50 mg PO QDAY #5 tab 04/10/19 10/14/21 10/13/21 Rx Active Meds: Active Medications Acetaminophen (Acetaminophen 325 Mg Tab) 650 mg PO Q4H PRN PRN Reason: Pain MILD(1-3)/Fever >100.5/SIDDIQUI Last Admin: 10/15/21 04:57 Dose: 650 mg Albuterol (Albuterol 2.5 Mg/3 Ml Nebu) 2.5 mg IH Q3HRT PRN PRN Reason: Wheezing Albuterol/Ipratropium (Ipratropium/Albuterol Sulfate 3 Ml Ampul.Neb) 1 ampul IH QIDRT ASHLYN Famotidine (Famotidine 20 Mg Tab) 20 mg PO BID ASHLYN Levofloxacin/Dextrose (Levaquin 750mg/150ml) 750 mg in 150 mls @ 100 mls/hr IV Q24HR ASHLYN; Protocol Methylprednisolone Sodium Succinate (Methylprednisolone Sod Succinate 125 Mg/2 Ml Inj) 80 mg IV Q8H [facility] Last Admin: 10/15/21 00:17 Dose: 80 mg Metoclopramide HCl (Metoclopramide 10 Mg Tab) 10 mg PO Q6H PRN PRN Reason: Nausea And Vomiting Morphine Sulfate (Morphine 2 Mg/1 Ml Inj) 2 mg IV Q4H PRN PRN Reason: Pain, Moderate (4-6) Ondansetron HCl (Ondansetron 4 Mg/2 Ml Inj) 4 mg IV Q8H PRN PRN Reason: Nausea And Vomiting Oxycodone/Acetaminophen (Oxycodone /Acetaminophen 5-325mg Tab) 1 tab PO Q6H PRN PRN Reason: Pain, Moderate (4-6) Sodium Chloride (Sodium Chloride 0.9% 10 Ml Flush Syringe) 10 ml IV BID ASHLYN Sodium Chloride (Sodium Chloride 0.9% 10 Ml Flush Syringe) 10 ml IV PRN PRN PRN Reason: LINE FLUSH Exam - Constitutional Vitals: Temp Pulse Resp BP Pulse Ox 98.0 F 102 H 18 136/73 99 10/15/21 05:11 10/15/21 05:11 10/15/21 05:11 10/15/21 05:11 10/15/21 05:11 General appearance: Present: severe distress, well-nourished - EENT Eyes: Present: PERRL ENT: hearing intact, clear oral mucosa - Neck Neck: Present: supple, normal ROM - Respiratory Respiratory effort: normal Respiratory: bilateral: CTA - Cardiovascular Heart rate: 78 Rhythm: regular Heart Sounds: Present: S1 & S2. Absent: rub, click - Extremities Extremities: pulses symmetrical, No edema Peripheral Pulses: within normal limits - Abdominal General gastrointestinal: Present: soft, non-tender, non-distended, normal bowel sounds Female genitourinary: Present: normal - Integumentary Integumentary: Present: clear, warm, dry - Musculoskeletal Musculoskeletal: gait normal, strength equal bilaterally - Psychiatric Psychiatric: appropriate mood/affect, intact judgment & insight - Neurologic Neurologic: CNII-XII intact, moves all extremities HEART Score - HEART Score Troponin: Troponin T < 0.010 ng/mL (0.00-0.029) 10/14/21 12:53 Results - Labs CBC & Chem 7: 10/15/21 04:47 10/15/21 04:47 Labs: Laboratory Last Values WBC 19.3 K/mm3 (4.5-11.0) H 10/15/21 04:47 RBC 4.08 M/mm3 (3.65-5.03) 10/15/21 04:47 Hgb 9.7 gm/dl (10.1-14.3) L 10/15/21 04:47 Hct 31.7 % (30.3-42.9) 10/15/21 04:47 MCV 78 fl (79-97) L 10/15/21 04:47 MCH 24 pg (28-32) L 10/15/21 04:47 MCHC 31 % (30-34) 10/15/21 04:47 RDW 17.8 % (13.2-15.2) H 10/15/21 04:47 Plt Count 314 K/mm3 (140-440) 10/15/21 04:47 Lymph % (Auto) 6.1 % (13.4-35.0) L 10/14/21 12:53 Keith % (Auto) 3.8 % (0.0-7.3) 10/14/21 12:53 Eos % (Auto) 0.0 % (0.0-4.3) 10/14/21 12:53 Baso % (Auto) 0.3 % (0.0-1.8) 10/14/21 12:53 Lymph # (Auto) 1.2 K/mm3 (1.2-5.4) 10/14/21 12:53 Keith # (Auto) 0.7 K/mm3 (0.0-0.8) 10/14/21 12:53 Eos # (Auto) 0.0 K/mm3 (0.0-0.4) 10/14/21 12:53 Baso # (Auto) 0.1 K/mm3 (0.0-0.1) 10/14/21 12:53 Seg Neutrophils % [employer] 10/15/21 04:47 Seg Neutrophils # 17.5 K/mm3 (1.8-7.7) H 10/14/21 12:53 PT 12.5 Sec. (12.2-14.9) 10/14/21 12:53 INR 0.85 (0.87-1.13) L 10/14/21 12:53 APTT 27.0 Sec. (24.2-36.6) 10/14/21 12:53 ABG pH 7.371 pH Units (7.350-7.450) 10/14/21 15:08 ABG pCO2 50.2 mm Hg 10/14/21 15:08 ABG pO2 108.7 mm Hg (80.0-90.0) H 10/14/21 15:08 ABG HCO3 28.5 mmol/L (20.0-26.0) H 10/14/21 15:08 ABG O2 Saturation 97.8 % (95.0-99.0) 10/14/21 15:08 ABG O2 Content 13.1 (0.0-44) 10/14/21 15:08 ABG Base Excess 2.6 mmol/L (-2.0-3.0) 10/14/21 15:08 ABG Hemoglobin 9.6 gm/dl (12.0-16.0) L 10/14/21 15:08 ABG Carboxyhemoglobin 1.3 % (0.0-5.0) 10/14/21 15:08 ABG Methemoglobin 0.5 % (0.0-1.5) 10/14/21 15:08 Oxyhemoglobin 96.0 % (95.0-99.0) 10/14/21 15:08 FiO2 28 % 10/14/21 15:08 Sodium 139 mmol/L (137-145) 10/15/21 04:47 Potassium 4.4 mmol/L (3.6-5.0) 10/15/21 04:47 Chloride 101.1 mmol/L (98-107) 10/15/21 04:47 Carbon Dioxide 28 mmol/L (22-30) 10/15/21 04:47 Anion Gap 14 mmol/L 10/15/21 04:47 BUN 20 mg/dL (7-17) H 10/15/21 04:47 Creatinine 0.5 mg/dL (0.6-1.2) L 10/15/21 04:47 Estimated GFR > 60 ml/min 10/15/21 04:47 BUN/Creatinine Ratio 40 % 10/15/21 04:47 Glucose 154 mg/dL (65-100) H 10/15/21 04:47 Calcium 9.4 mg/dL (8.4-10.2) 10/15/21 04:47 Total Bilirubin 0.20 mg/dL (0.1-1.2) 10/15/21 04:47 AST 18 units/L (5-40) 10/15/21 04:47 ALT 12 units/L (7-56) 10/15/21 04:47 Alkaline Phosphatase 62 units/L (35-129) 10/15/21 04:47 Troponin T < 0.010 ng/mL (0.00-0.029) 10/14/21 12:53 Total Protein 6.9 g/dL (6.3-8.2) 10/15/21 04:47 Albumin 4.2 g/dL (3.9-5) 10/15/21 04:47 Albumin/Globulin Ratio 1.6 % 10/15/21 04:47 Short CBC 10/14/21 10/15/21 Range/Units 12:53 04:47 WBC 19.5 H 19.3 H (4.5-11.0) K/mm3 Hgb 9.8 L 9.7 L (10.1-14.3) gm/dl Hct 30.3 31.7 (30.3-42.9) % Plt Count 283 314 (140-440) K/mm3 BMP 05/21/22 05/22/22 12:53 04:47 Sodium 140 139 Potassium 4.8 4.4 Chloride 103.6 101.1 Carbon Dioxide 26 28 BUN 20 H 20 H Creatinine 0.6 0.5 L Glucose 136 H 154 H Calcium 9.4 9.4 Cardiac Enzymes 10/14/21 Range/Units 12:53 Troponin T < 0.010 (0.00-0.029) ng/mL Liver Function 10/15/21 Range/Units 04:47 Total Bilirubin 0.20 (0.1-1.2) mg/dL AST 18 (5-40) units/L ALT 12 (7-56) units/L Alkaline Phosphatase 62 (35-129) units/L Albumin 4.2 (3.9-5) g/dL Microbiology: Microbiology 10/14/21 14:09 Peripheral/Venous Blood Culture - Preliminary Culture in Progress 10/14/21 13:57 Peripheral/Venous Blood Culture - Preliminary Culture in Progress - Imaging and Cardiology Chest x-ray: report reviewed Imaging and Cardiology: Chest x-ray COPD no acute pulmonary or pleural disease Sanchez/IV: Voiding Method Toilet Assessment and Plan Advance Directives: Yes (Full code) VTE prophylaxis?: Chemical Plan of care discussed with patient/family: Yes - Patient Problems (1) Acute respiratory failure with hypoxia Current Visit: Yes Status: Acute Plan to address problem: Patient was hypoxic at the time of admission Oxygen supplementation as necessary Respiratory assessment and treatment (2) SIRS (systemic inflammatory response syndrome) Current Visit: No Status: Acute Plan to address problem: Patient has leukocytosis Clinical picture consistent with Sirs (3) Acute exacerbation of COPD with asthma Current Visit: Yes Status: Acute Plan to address problem: IV antibiotics, IV Solu-Medrol and duo nebs [id number] and as needed Pulmonary consult requested Patient is ex-smoker (4) Hypertension Current Visit: Yes Status: Chronic Qualifiers: Hypertension type: primary hypertension Qualified Code(s): I10 - Essential (primary) hypertension Plan to address problem: Continue antihypertensives and adjust medications (5) Anemia Current Visit: Yes Status: Chronic Qualifiers: Anemia type: unspecified type Qualified Code(s): D64.9 - Anemia, unspecified Plan to address problem: Anemia work-up Iron levels, folic acid and B12 requested (6) DVT prophylaxis Current Visit: No Status: Acute Plan to address problem: On anticoagulation GI prophylaxis (7) Advance care planning Current Visit: Yes Status: Acute Plan to address problem: Disease education conducted, care plan discussed, diagnosis discussed, prognosis discussed. Patient is full code. Patient acknowledges understanding and agreement with care plan. +30 minutes. (8) Hyperkalemia Current Visit: No Status: Acute
[2021-10-15 07:33] LABS: Monocytes # (Auto) 0.6 K/mm3 (0.0-0.8); Monocytes % (Auto) 2.9 % (0.0-7.3)
--- NOTE | 2021-10-15 07:54 | Progress Note ---
Assessment and Plan Assessment and plan: # Acute respiratory failure with hypoxia Current Visit: Yes Status: Acute Plan to address problem: Patient was hypoxic at the time of admission Oxygen supplementation as necessary Respiratory assessment and treatment on 3l /min O2 # SEPSIS POA #Community acquired pneumonia Current Visit: No Status: Acute Plan to address problem: Patient has leukocytosis, multifactorial from steroid admin and PNA Clinical picture consistent with copd and pna. - Appears to have focal RLL consolidation on cxr - Levaquin IV # Acute exacerbation of COPD with asthma Current Visit: Yes Status: Acute Plan to address problem: IV antibiotics, IV Solu-Medrol and duo nebs [id number] and as needed Pulmonary consult requested Patient is ex-smoker # Hypertension Current Visit: Yes Status: Chronic Qualifiers: Hypertension type: primary hypertension Qualified Code(s): I10 - Essential (primary) hypertension Plan to address problem: Continue antihypertensives and adjust medications # Anemia Current Visit: Yes Status: Chronic Qualifiers: Anemia type: unspecified type Qualified Code(s): D64.9 - Anemia, unspecified Plan to address problem: Anemia work-up Iron levels, folic acid and B12 requested # Hyperkalemia Current Visit: No Status: Acute # DVT prophylaxis Current Visit: No Status: Acute Plan to address problem: On anticoagulation GI prophylaxis # Advance care planning Current Visit: Yes Status: Acute Plan to address problem: Disease education conducted, care plan discussed, diagnosis discussed, prognosis discussed. Patient is full code. Patient acknowledges understanding and agreement with care plan. +30 minutes. History Interval history: Saw and evaluated patient on bedside encounter. Resting comfortably with NC at 3l/min. Improved respiratory symptomology. Hospitalist Physical - Physical exam Narrative exam: General appearance: Present: severe distress, well-nourished - EENT Eyes: Present: PERRL ENT: hearing intact, clear oral mucosa - Neck Neck: Present: supple, normal ROM - Respiratory Respiratory effort: normal Respiratory: poor air movement, interval improvement. - Cardiovascular Heart rate: 78 Rhythm: regular Heart Sounds: Present: S1 & S2. Absent: rub, click - Extremities Extremities: pulses symmetrical, No edema Peripheral Pulses: within normal limits - Abdominal General gastrointestinal: Present: soft, non-tender, non-distended, normal bowel sounds Female genitourinary: Present: normal - Integumentary Integumentary: Present: clear, warm, dry - Musculoskeletal Musculoskeletal: gait normal, strength equal bilaterally - Psychiatric Psychiatric: appropriate mood/affect, intact judgment & insight - Neurologic Neurologic: CNII-XII intact, moves all extremities - Constitutional Vitals: Temp Pulse Resp BP Pulse Ox 98.0 F 102 H 18 136/73 99 10/15/21 05:11 10/15/21 05:11 10/15/21 05:11 10/15/21 05:11 10/15/21 05:11 General appearance: Present: severe distress, well-nourished HEART Score - HEART Score Troponin: Troponin T < 0.010 ng/mL (0.00-0.029) 10/14/21 12:53 Results - Labs CBC & Chem 7: 10/15/21 04:47 10/15/21 04:47 Labs: Laboratory Last Values WBC 19.3 K/mm3 (4.5-11.0) H 10/15/21 04:47 RBC 4.08 M/mm3 (3.65-5.03) 10/15/21 04:47 Hgb 9.7 gm/dl (10.1-14.3) L 10/15/21 04:47 Hct 31.7 % (30.3-42.9) 10/15/21 04:47 MCV 78 fl (79-97) L 10/15/21 04:47 MCH 24 pg (28-32) L 10/15/21 04:47 MCHC 31 % (30-34) 10/15/21 04:47 RDW 17.8 % (13.2-15.2) H 10/15/21 04:47 Plt Count 314 K/mm3 (140-440) 10/15/21 04:47 Lymph % (Auto) 6.1 % (13.4-35.0) L 10/14/21 12:53 Calvert % (Auto) 2.9 % (0.0-7.3) 10/15/21 04:47 Eos % (Auto) 0.0 % (0.0-4.3) 10/15/21 04:47 Baso % (Auto) 0.3 % (0.0-1.8) 10/14/21 12:53 Lymph # (Auto) 1.2 K/mm3 (1.2-5.4) 10/14/21 12:53 Calvert # (Auto) 0.6 K/mm3 (0.0-0.8) 10/15/21 04:47 Eos # (Auto) 0.0 K/mm3 (0.0-0.4) 10/15/21 04:47 Baso # (Auto) 0.0 K/mm3 (0.0-0.1) 10/15/21 04:47 Add Manual Diff Complete 10/15/21 04:47 Total Counted 100 10/15/21 04:47 Seg Neutrophils % Relay Operator 10/15/21 04:47 Seg Neuts % (Manual) 95.0 % (40.0-70.0) H 10/15/21 04:47 Band Neutrophils % 0 % 10/15/21 04:47 Lymphocytes % (Manual) 5.0 % (13.4-35.0) L 10/15/21 04:47 Reactive Lymphs % (Man) 0 % 10/15/21 04:47 Monocytes % (Manual) 0 % (0.0-7.3) 10/15/21 04:47 Eosinophils % (Manual) 0 % (0.0-4.3) 10/15/21 04:47 Basophils % (Manual) 0 % (0.0-1.8) 10/15/21 04:47 Metamyelocytes % 0 % 10/15/21 04:47 Myelocytes % 0 % 10/15/21 04:47 Promyelocytes % 0 % 10/15/21 04:47 Blast Cells % 0 % 10/15/21 04:47 Nucleated RBC % Not Reportable 10/15/21 04:47 Seg Neutrophils # 19.2 K/mm3 (1.8-7.7) H 10/15/21 04:47 Seg Neutrophils # Man 18.3 K/mm3 (1.8-7.7) H 10/15/21 04:47 Band Neutrophils # 0.0 K/mm3 10/15/21 04:47 Lymphocytes # (Manual) 1.0 K/mm3 (1.2-5.4) L 10/15/21 04:47 Abs React Lymphs (Man) 0.0 K/mm3 10/15/21 04:47 Monocytes # (Manual) 0.0 K/mm3 (0.0-0.8) 10/15/21 04:47 Eosinophils # (Manual) 0.0 K/mm3 (0.0-0.4) 10/15/21 04:47 Basophils # (Manual) 0.0 K/mm3 (0.0-0.1) 10/15/21 04:47 Metamyelocytes # 0.0 K/mm3 10/15/21 04:47 Myelocytes # 0.0 K/mm3 10/15/21 04:47 Promyelocytes # 0.0 K/mm3 10/15/21 04:47 Blast Cells # 0.0 K/mm3 10/15/21 04:47 WBC Morphology Not Reportable 10/15/21 04:47 Hypersegmented Neuts Not Reportable 10/15/21 04:47 Hyposegmented Neuts Not Reportable 10/15/21 04:47 Hypogranular Neuts Not Reportable 10/15/21 04:47 Smudge Cells Not Reportable 10/15/21 04:47 Toxic Granulation Not Reportable 10/15/21 04:47 Toxic Vacuolation Not Reportable 10/15/21 04:47 Dohle Bodies Not Reportable 10/15/21 04:47 Pelger-Huet Anomaly Not Reportable 10/15/21 04:47 Angelina Rods Not Reportable 10/15/21 04:47 Platelet Estimate Consistent w auto 10/15/21 04:47 Clumped Platelets Not Reportable 10/15/21 04:47 Plt Clumps, EDTA Not Reportable 10/15/21 04:47 Large Platelets Not Reportable 10/15/21 04:47 Giant Platelets Not Reportable 10/15/21 04:47 Platelet Satelliting Not Reportable 10/15/21 04:47 Plt Morphology Comment Not Reportable 10/15/21 04:47 RBC Morphology Not Reportable 10/15/21 04:47 Dimorphic RBCs Not Reportable 10/15/21 04:47 Polychromasia Not Reportable 10/15/21 04:47 Hypochromasia Not Reportable 10/15/21 04:47 Poikilocytosis Not Reportable 10/15/21 04:47 Anisocytosis 1+ 10/15/21 04:47 Microcytosis Not Reportable 10/15/21 04:47 Macrocytosis Not Reportable 10/15/21 04:47 Spherocytes Not Reportable 10/15/21 04:47 Pappenheimer Bodies Not Reportable 10/15/21 04:47 Sickle Cells Not Reportable 10/15/21 04:47 Target Cells Not Reportable 10/15/21 04:47 Tear Drop Cells Not Reportable 10/15/21 04:47 Ovalocytes Not Reportable 10/15/21 04:47 Helmet Cells Not Reportable 10/15/21 04:47 Joel-Rosine Bodies Not Reportable 10/15/21 04:47 Brighton Rings Not Reportable 10/15/21 04:47 Edwards Cells Not Reportable 10/15/21 04:47 Bite Cells Not Reportable 10/15/21 04:47 Crenated Cell Not Reportable 10/15/21 04:47 Elliptocytes Not Reportable 10/15/21 04:47 Acanthocytes (Spur) Not Reportable 10/15/21 04:47 Rouleaux Not Reportable 10/15/21 04:47 Hemoglobin C Crystals Not Reportable 10/15/21 04:47 Schistocytes Not Reportable 10/15/21 04:47 Malaria parasites Not Reportable 10/15/21 04:47 Joel Bodies Not Reportable 10/15/21 04:47 Hem Pathologist Commnt No 10/15/21 04:47 PT 12.5 Sec. (12.2-14.9) 10/14/21 12:53 INR 0.85 (0.87-1.13) L 10/14/21 12:53 APTT 27.0 Sec. (24.2-36.6) 10/14/21 12:53 ABG pH 7.371 pH Units (7.350-7.450) 10/14/21 15:08 ABG pCO2 50.2 mm Hg 10/14/21 15:08 ABG pO2 108.7 mm Hg (80.0-90.0) H 10/14/21 15:08 ABG HCO3 28.5 mmol/L (20.0-26.0) H 10/14/21 15:08 ABG O2 Saturation 97.8 % (95.0-99.0) 10/14/21 15:08 ABG O2 Content 13.1 (0.0-44) 10/14/21 15:08 ABG Base Excess 2.6 mmol/L (-2.0-3.0) 10/14/21 15:08 ABG Hemoglobin 9.6 gm/dl (12.0-16.0) L 10/14/21 15:08 ABG Carboxyhemoglobin 1.3 % (0.0-5.0) 10/14/21 15:08 ABG Methemoglobin 0.5 % (0.0-1.5) 10/14/21 15:08 Oxyhemoglobin 96.0 % (95.0-99.0) 10/14/21 15:08 FiO2 28 % 10/14/21 15:08 Sodium 139 mmol/L (137-145) 10/15/21 04:47 Potassium 4.4 mmol/L (3.6-5.0) 10/15/21 04:47 Chloride 101.1 mmol/L (98-107) 10/15/21 04:47 Carbon Dioxide 28 mmol/L (22-30) 10/15/21 04:47 Anion Gap 14 mmol/L 10/15/21 04:47 BUN 20 mg/dL (7-17) H 10/15/21 04:47 Creatinine 0.5 mg/dL (0.6-1.2) L 10/15/21 04:47 Estimated GFR > 60 ml/min 10/15/21 04:47 BUN/Creatinine Ratio 40 % 10/15/21 04:47 Glucose 154 mg/dL (65-100) H 10/15/21 04:47 Calcium 9.4 mg/dL (8.4-10.2) 10/15/21 04:47 Total Bilirubin 0.20 mg/dL (0.1-1.2) 10/15/21 04:47 AST 18 units/L (5-40) 10/15/21 04:47 ALT 12 units/L (7-56) 10/15/21 04:47 Alkaline Phosphatase 62 units/L (35-129) 10/15/21 04:47 Troponin T < 0.010 ng/mL (0.00-0.029) 10/14/21 12:53 Total Protein 6.9 g/dL (6.3-8.2) 10/15/21 04:47 Albumin 4.2 g/dL (3.9-5) 10/15/21 04:47 Albumin/Globulin Ratio 1.6 % 10/15/21 04:47 Microbiology: Microbiology 10/14/21 14:09 Peripheral/Venous Blood Culture - Preliminary Culture in Progress 10/14/21 13:57 Peripheral/Venous Blood Culture - Preliminary Culture in Progress Sanchez/IV: Voiding Method Toilet Active Medications - Current Medications Current Medications: Generic Name Dose Route Start Last Admin Trade Name Freq PRN Reason Stop Dose Admin Acetaminophen 650 mg 10/14/21 23:37 10/15/21 04:57 Acetaminophen 325 Mg Tab PO 650 mg Q4H PRN Administration Pain MILD(1-3)/Fever >100.5/SIDDIQUI Albuterol 2.5 mg 10/15/21 00:18 Albuterol 2.5 Mg/3 Ml Nebu IH Q3HRT PRN Wheezing Albuterol/Ipratropium 1 ampul 10/15/21 08:00 Ipratropium/Albuterol Sulfate 3 Ml Ampul.Neb IH QIDRT ASHLYN Famotidine 20 mg 10/15/21 10:00 Famotidine 20 Mg Tab PO BID [facility] Levofloxacin/Dextrose 750 mg in 150 mls @ 100 mls/hr 10/15/21 10:00 Levaquin 750mg/150ml IV Q24HR [facility] Protocol Methylprednisolone Sodium Succinate 80 mg 10/15/21 00:00 10/15/21 00:17 Methylprednisolone Sod Succinate 125 Mg/2 Ml Inj IV 80 mg Q8H ASHLYN Administration Metoclopramide HCl 10 mg 10/14/21 23:37 Metoclopramide 10 Mg Tab PO Q6H PRN Nausea And Vomiting Morphine Sulfate 2 mg 10/14/21 17:25 Morphine 2 Mg/1 Ml Inj IV Q4H PRN Pain, Moderate (4-6) Ondansetron HCl 4 mg 10/14/21 23:37 Ondansetron 4 Mg/2 Ml Inj IV Q8H PRN Nausea And Vomiting Oxycodone/Acetaminophen 1 tab 10/14/21 23:37 Oxycodone /Acetaminophen 5-325mg Tab PO Q6H PRN Pain, Moderate (4-6) Sodium Chloride 10 ml 10/15/21 10:00 Sodium Chloride 0.9% 10 Ml Flush Syringe IV BID ASHLYN Sodium Chloride 10 ml 10/14/21 23:37 Sodium Chloride 0.9% 10 Ml Flush Syringe IV PRN PRN LINE FLUSH
[2021-10-15 08:10] LABS: % Iron Saturation 7.79 %
[2021-10-15] MEDS: IPRATROPIUM/ALBUTEROL SULFATE 3 ML AMPUL.NEB IH SCH ×4 (08:14→19:22)
[2021-10-15] MEDS: FAMOTIDINE 20 MG TAB PO SCH ×2 (09:18→22:12)
[2021-10-15] MEDS ORDERED: predniSONE 50 MG TAB PO SCH (10:00)
--- NOTE | 2021-10-15 10:26 | Consultation ---
History of Present Illness Consult date: 10/15/21 Reason for consult: dyspnea, cough, COPD History of present illness: Patient is 66 years old female with history of COPD on home oxygen. Patient presented to the ER complaining of shortness of breath and difficulty breathing for the last few days. Patient denied any fever or chills. No chest pain. Patient stated that she is taking her inhaler but is not helping. Cough productive of Light yellow sputum. Patient has one episode coughing up some blood this morning. She did not notice any hemoptysis after that. Patient denies htn, diabetes, Gerd or arthritis. She gets headaches some times not Migraines. Patient has history of smoking 1 pack a day x 20 years. Stopped smoking 5 years ago. Denies alcohol or drug abuse. 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 Denies any exposure to chemicals or Irritants. . Has two chil dren. Allergic to Codeine. Patient has history left mid lung surgery for lung lesion. According to the patient it is benign. Patient used to follow with Dr. Patel and Dr. SAMAYOA pulmonologists. Now following with [facility]. Patient awake. Resting on 3 litres O2. O2 saturation 100%. No acute respiratory distress at rest. ABG on 28% FIO2 ABG pH 7.371 pH Units (7.350-7.450) 10/14/21 15:08 ABG pCO2 50.2 mm Hg 10/14/21 15:08 ABG pO2 108.7 mm Hg (80.0-90.0) H 10/14/21 15:08 ABG O2 Saturation 97.8 % (95.0-99.0) 10/14/21 15:08 Recommend to decrease O2 to 2 litres. Patient afebrile. Has leukocytosis 19.3,000. Blood pressure 136/73, Pulse 98, Respirations 20. Patients HGB 9.7, HCT 31.7, Platelets 314,000 10/15/21 Patients BUN 20, Creatinine .5, Na+ 139, K+ 4.4, Glucose 154 other castelan not remarkable. 10/15/21. Patients serum Iron is low 30. Patients troponin level .01. Patients B12 level 1147. Chest xray done 10/14/21 reported COPD. No acute pulmonary or pleural disease. Patient presently on I/V solumedrol, I/V Levaquine, Albuterol/atrovent aerosol treatment q 6 hours, Albuterol inhaler prn for shortness of breath.Famotidine and robitussin PRN for cough. If no active bleeding, recommend DVT prophylaxis with S/C Lovenox or S/C Heparin. - Past History Past Medical History: COPD Social history: denies: smoking, alcohol abuse, prescription drug abuse Family history: other (Patient says stopped smoking 5 years ago.) Medications and Allergies Allergies Allergy/AdvReac Type Severity Reaction Status Date / Time codeine Allergy Unknown Verified 08/01/15 12:17 Home Medications Medication Instructions Recorded Confirmed Last Taken Type dilTIAZem CD [Cardizem CD] 120 mg PO QDAY #30 capsule 06/06/18 10/14/21 10/13/21 Rx Aspirin [Aspirin BABY CHEW TAB] 81 mg PO QDAY #15 12/09/18 10/14/21 12/06/18 Rx Budesonide/Formoterol Fumarate 10.2 gm IH BID 30 Days #1 12/09/18 10/14/21 10/13/21 Rx [Symbicort 160-4.5 Mcg Inhaler] hfa.aer.ad Ipratropium/Albuterol Sulfate 1 ampul IH TIDRT #30 ampul.neb 12/09/18 10/14/21 Unknown Rx [DUONEB *Not for PRN Use*] predniSONE [Deltasone] 50 mg PO QDAY #5 tab 04/10/19 10/14/21 10/13/21 Rx AtorvaSTATin [Lipitor] 20 mg PO QHS 10/15/21 10/15/21 10/13/21 22:00 History Darifenacin Hydrobromide 7.5 mg PO DAILY 10/15/21 10/15/21 10/13/21 10:00 History [Darifenacin ER] Active Meds: Active Medications Acetaminophen (Acetaminophen 325 Mg Tab) 650 mg PO Q4H PRN PRN Reason: Pain MILD(1-3)/Fever >100.5/SIDDIQUI Last Admin: 10/15/21 04:57 Dose: 650 mg Albuterol (Albuterol 2.5 Mg/3 Ml Nebu) 2.5 mg IH Q3HRT PRN PRN Reason: Wheezing Albuterol/Ipratropium (Ipratropium/Albuterol Sulfate 3 Ml Ampul.Neb) 1 ampul IH QIDRT [facility] Last Admin: 10/15/21 08:14 Dose: 1 ampul Aspirin (Aspirin 81 Mg Tab Chew) 81 mg PO QDAY [facility] Atorvastatin Calcium (Atorvastatin 40 Mg Tab) 20 mg PO QHS [facility] Diltiazem HCl (Diltiazem Cd 120 Mg Cap) 120 mg PO QDAY [facility] Famotidine (Famotidine 20 Mg Tab) 20 mg PO BID [facility] Last Admin: 10/15/21 09:18 Dose: 20 mg Guaifenesin (Guaifenesin 100 Mg/5 Ml Oral Liqd) 200 mg PO Q4H PRN PRN Reason: Cough Levofloxacin/Dextrose (Levaquin 750mg/150ml) 750 mg in 150 mls @ 100 mls/hr IV Q24HR [facility]; Protocol Last Admin: 10/15/21 09:18 Dose: 100 mls/hr Methylprednisolone Sodium Succinate (Methylprednisolone Sod Succinate 125 Mg/2 Ml Inj) 80 mg IV Q8H [facility] Last Admin: 10/15/21 09:32 Dose: 80 mg Metoclopramide HCl (Metoclopramide 10 Mg Tab) 10 mg PO Q6H PRN PRN Reason: Nausea And Vomiting Morphine Sulfate (Morphine 2 Mg/1 Ml Inj) 2 mg IV Q4H PRN PRN Reason: Pain, Moderate (4-6) Ondansetron HCl (Ondansetron 4 Mg/2 Ml Inj) 4 mg IV Q8H PRN PRN Reason: Nausea And Vomiting Oxycodone/Acetaminophen (Oxycodone /Acetaminophen 5-325mg Tab) 1 tab PO Q6H PRN PRN Reason: Pain, Moderate (4-6) Sodium Chloride (Sodium Chloride 0.9% 10 Ml Flush Syringe) 10 ml IV BID [facility] Last Admin: 10/15/21 09:37 Dose: 10 ml Sodium Chloride (Sodium Chloride 0.9% 10 Ml Flush Syringe) 10 ml IV PRN PRN PRN Reason: LINE FLUSH Review of Systems All systems: negative Physical Examination Vital signs: Vital Signs Pulse Resp BP Pulse Ox 108 H 16 140/80 99 10/14/21 11:47 10/14/21 11:47 10/14/21 11:47 10/14/21 11:47 General appearance: no acute distress, alert Eyes: non-icteric ENT: oropharynx moist Neck: supple, no lymphadenopathy Effort: mildly labored Ascultation: Bilateral: other (Prolonged expiratory phase.) Cardiovascular: regular rate and rhythm Gastrointestinal: normoactive bowel sounds, soft, non-tender Integumentary: normal Extremities: no cyanosis, no edema Musculoskeletal: no deformities Gait: other (Resting in bed at this time.) normal mental status, non-focal exam, pupils equal and round, CN II-XII normal anxious Results - Laboratory Findings CBC and BMP: 10/15/21 04:47 10/15/21 04:47 ABG ABG pH 7.371 pH Units (7.350-7.450) 10/14/21 15:08 ABG pCO2 50.2 mm Hg 10/14/21 15:08 ABG pO2 108.7 mm Hg (80.0-90.0) H 10/14/21 15:08 ABG O2 Saturation 97.8 % (95.0-99.0) 10/14/21 15:08 PT/INR, D-dimer PT 12.5 Sec. (12.2-14.9) 10/14/21 12:53 INR 0.85 (0.87-1.13) L 10/14/21 12:53 Abnormal lab findings: Abnormal Labs 10/14/21 10/14/21 10/14/21 12:53 12:53 12:53 WBC 19.5 H Hgb 9.8 L MCV 76 L MCH 25 L RDW 18.0 H Lymph % (Auto) 6.1 L Seg Neutrophils % 89.8 H Seg Neuts % (Manual) Lymphocytes % (Manual) Seg Neutrophils # 17.5 H Seg Neutrophils # Man Lymphocytes # (Manual) INR 0.85 L ABG pO2 ABG HCO3 ABG Hemoglobin BUN 20 H Creatinine Glucose 136 H Iron Vitamin B12 10/14/21 10/15/21 10/15/21 15:08 04:47 04:47 WBC 19.3 H Hgb 9.7 L MCV 78 L MCH 24 L RDW 17.8 H Lymph % (Auto) Seg Neutrophils % Seg Neuts % (Manual) 95.0 H Lymphocytes % (Manual) 5.0 L Seg Neutrophils # 19.2 H Seg Neutrophils # Man 18.3 H Lymphocytes # (Manual) 1.0 L INR ABG pO2 108.7 H ABG HCO3 28.5 H ABG Hemoglobin 9.6 L BUN 20 H Creatinine 0.5 L Glucose 154 H Iron Vitamin B12 10/15/21 10/15/21 07:13 07:13 WBC Hgb MCV MCH RDW Lymph % (Auto) Seg Neutrophils % Seg Neuts % (Manual) Lymphocytes % (Manual) Seg Neutrophils # Seg Neutrophils # Man Lymphocytes # (Manual) INR ABG pO2 ABG HCO3 ABG Hemoglobin BUN Creatinine Glucose Iron 30 L Vitamin B12 1147 H - Diagnostic Findings Chest x-ray: report reviewed, image reviewed Additional studies: CHEST 1 VIEW 10/14/21 INDICATION / CLINICAL INFORMATION: Dyspnea. COMPARISON: 04/10/2019 FINDINGS: SUPPORT DEVICES: None. HEART / MEDIASTINUM: No significant abnormality. LUNGS / PLEURA: The lungs are hyperinflated consistent with COPD. The lungs are otherwise grossly clear without evidence for superimposed acute disease. Postsurgical changes noted in the left midlung. No pneumothorax. ADDITIONAL FINDINGS: No significant additional findings. IMPRESSION: 1. COPD. No acute pulmonary or pleural disease. Assessment and Plan Patient is 66 years old female with history of COPD on home oxygen. Patient presented to the ER complaining of shortness of breath and difficulty breathing for the last few days. Patient denied any fever or chills. No chest pain. Patient stated that she is taking her inhaler but is not helping. Cough productive of Light yellow sputum. Patient has one episode coughing up some blood this morning. She did not notice any hemoptysis after that. Patient denies htn, diabetes, Gerd or arthritis. She gets headaches some times not Migraines. Patient has history of smoking 1 pack a day x 20 years. Stopped smoking 5 years ago. Denies alcohol or drug abuse. 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 Denies any exposure to chemicals or Irritants. . Has two children. Allergic to Codeine. Patient has history left mid lung surgery for lung lesion. According to the patient it is benign. Patient used to follow with Dr. Patel and Dr. SAMAYOA pulmonologists. Now following with [facility]. Patient awake. Resting on 3 litres O2. O2 saturation 100%. No acute respiratory distress at rest. ABG on 28% FIO2 ABG pH 7.371 pH Units (7.350-7.450) 10/14/21 15:08 ABG pCO2 50.2 mm Hg 05/21/22 15:08 ABG pO2 108.7 mm Hg (80.0-90.0) H 10/14/21 15:08 ABG O2 Saturation 97.8 % (95.0-99.0) 10/14/21 15:08 Recommend to decrease O2 to 2 litres. Patient afebrile. Has leukocytosis 19.3,000. Blood pressure 136/73, Pulse 98, Respirations 20. Patients HGB 9.7, HCT 31.7, Platelets 314,000 10/15/21 Patients BUN 20, Creatinine .5, Na+ 139, K+ 4.4, Glucose 154 other castelan not remarkable. 10/15/21. Patients serum Iron is low 30. Patients troponin level .01. Patients B12 level 1147. Chest xray done 10/14/21 reported COPD. No acute pulmonary or pleural disease. Patient presently on I/V solumedrol, I/V Levaquine, Albuterol/atrovent aerosol treatment q 6 hours, Albuterol inhaler prn for shortness of breath.Famotidine a nd robitussin PRN for cough. If no active bleeding, recommend DVT prophylaxis with S/C Lovenox or S/C Heparin. - Patient Problems (1) Respiratory failure with hypoxia and hypercapnia Current Visit: Yes Status: Acute Plan to address problem: O2 2 litres via nasal canula. Continue I/V solumedrol. Continue albuterol/atrovent aerosol treatments. Continue I/V Levaquin. Continue famotidine. Recommend DVT prophylaxis. (2) Acute exacerbation of COPD with asthma Current Visit: Yes Status: Acute Plan to address problem: O2 2 litres via nasal canula. Continue I/V solumedrol. Continue albuterol/atrovent aerosol treatments. Continue I/V Levaquin. Continue famotidine. Recommend DVT prophylaxis. Recommend PFTs as out patient. (3) Acute bronchitis Current Visit: Yes Status: Acute Plan to address problem: Continue I/V Levaquin. Sputum for gram stain and C&S. (4) Anemia Current Visit: Yes Status: Chronic Qualifiers: Anemia type: unspecified type Qualified Code(s): D64.9 - Anemia, unspecified Plan to address problem: Patient serum Iron low. Recommend Iron supplementation. Management as per primary care and hematology. (5) Hypertension Current Visit: Yes Status: Chronic Qualifiers: Hypertension type: primary hypertension Qualified Code(s): I10 - Essential (primary) hypertension Plan to address problem: Patients recent blood pressure 136/73. Patient denies any history of HTN. Management as per primary care. (6) Tobacco abuse Current Visit: No Status: Acute Plan to address problem: Patient says stopped smoking 5 years ago.
[2021-10-15] MEDS: guaiFENesin 100 MG/5 ML ORAL LIQD PO PRN (11:08)
[2021-10-15] MEDS: ASPIRIN 81 MG TAB CHEW PO SCH (11:08)
[2021-10-15] MEDS: dilTIAZem CD 120 MG CAP PO SCH (11:08)
[2021-10-15] MEDS ORDERED: FLU VACC QUAD 2021-22(6MOS UP)/PF 60 MCG/0.5 ML SYRINGE IM ONE (12:00)
--- NOTE | 2021-10-15 18:16 | Electrocardiograph Report ---
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
[2021-10-15] MEDS: DARIFENACIN HYDROBROMIDE 7.5 MG PO SCH (19:06)
[2021-10-16] MEDS: methylPREDNISolone Sod Succinate 125 MG/2 ML INJ IV SCH ×2 (01:00→09:26)
[2021-10-16 05:13] LABS: Hematocrit 31.8 % (30.3-42.9); Hemoglobin 9.8 gm/dl (10.1-14.3); Mean Corpuscular HGB Conc 31 % (30-34); Mean Corpuscular Volume 77 fl (79-97); Platelet Count 309 K/mm3 (140-440); Red Blood Count 4.11 M/mm3 (3.65-5.03); Red Cell Distribution Width 18.1 % (13.2-15.2)
[2021-10-16 05:37] LABS: Blood Urea Nitrogen 20 mg/dL (7-17); Calcium 9.1 mg/dL (8.4-10.2); Hemolysis Index 6
[2021-10-16 05:41] LABS: BUN/Creatinine Ratio 33
[2021-10-16 06:18] LABS: Anisocytosis 1+; Basophils % (Manual) 0 % (0.0-1.8); Eosinophils % (Manual) 0 % (0.0-4.3); Total Cells Counted 100
[2021-10-16 06:19] LABS: Platelet Estimate Consistent w Auto
--- NOTE | 2021-10-16 09:06 | Progress Note ---
Assessment and Plan Patient is 66 years old female with history of COPD on home oxygen. Patient presented to the ER complaining of shortness of breath and difficulty breathing for the last few days. Patient denied any fever or chills. No chest pain. Patient stated that she is taking her inhaler but is not helping. Cough productive of Light yellow sputum. Patient has one episode coughing up some blood this morning. She did not notice any hemoptysis after that. Patient denies htn, diabetes, Gerd or arthritis. She gets headaches some times not Migraines. Patient has history of smoking 1 pack a day x 20 years. Stopped smoking 5 years ago. Denies alcohol or drug abuse. 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 Denies any exposure to chemicals or Irritants. . Has two children. Allergic to Codeine. Patient has history left mid lung surgery for lung lesion. According to the patient it is benign. Patient used to follow with Dr. Patel and Dr. SAMAYOA pulmonologists. Now following with [facility]. Patient awake. Says slightly breathing better than yesterday. Resting on 3 litres O2. O2 saturation 99%. No acute respiratory distress at rest. ABG on 28% FIO2 ABG pH 7.371 pH Units (7.350-7.450) 10/14/21 15:08 ABG pCO2 50.2 mm Hg 10/14/21 15:08 ABG pO2 108.7 mm Hg (80.0-90.0) H 10/14/21 15:08 ABG O2 Saturation 97.8 % (95.0-99.0) 10/14/21 15:08 Recommend to decrease O2 to 2 litres. Patient afebrile. Has leukocytosis 18.1,000. Blood pressure 136/73, Pulse 98, Respirations 20. Patients HGB 9.8, HCT 31.8, 10/16/21 Patients BUN 20, Creatinine .6, Na+ 142, K+ 4.1, Glucose 145 other castelan not remarkable. 10/16/21. Patients serum Iron is low 30. Patients troponin level .01. Patients B12 level 1147. Chest xray done 10/14/21 reported COPD. No acute pulmonary or pleural disease. Patient presently on I/V solumedrol, I/V Levaquine, Albuterol/atrovent aerosol treatment q 6 hours, Albuterol inhaler prn for shortness of breath.Famotidine and robitussin PRN for cough. If no active bleeding, recommend DVT prophylaxis with S/C Lovenox or S/C Heparin. I spent critical care time of 33 minutes, review the chart, examine the patient, review lab resutls, chest xray, talking to the nursing staff and respiratory therapy and work up plan of treatment on this patient with exacerbation of COPD and hypercapnic and hypoxic respiratory failure. - Patient Problems (1) Respiratory failure with hypoxia and hypercapnia Status: Acute Plan to address problem: O2 2 litres via nasal canula. Continue I/V solumedrol. Continue albuterol/atrovent aerosol treatments. Continue I/V Levaquin. Continue famotidine. Recommend DVT prophylaxis. (2) Acute exacerbation of COPD with asthma Status: Acute Plan to address problem: O2 2 litres via nasal canula. Continue I/V solumedrol. Continue albuterol/atrovent aerosol treatments. Continue I/V Levaquin. Continue famotidine. Recommend DVT prophylaxis. Recommend PFTs as out patient. (3) Acute bronchitis Status: Acute Plan to address problem: Continue I/V Levaquin. Sputum for gram stain and C&S. (4) Anemia Status: Chronic Qualifiers: Anemia type: unspecified type Qualified Code(s): D64.9 - Anemia, unspecified Plan to address problem: Patient serum Iron low. Recommend Iron supplementation. Management as per primary care and hematology. (5) Hypertension Status: Chronic Qualifiers: Hypertension type: primary hypertension Qualified Code(s): I10 - Essential (primary) hypertension Plan to address problem: Patients recent blood pressure 136/73. Patient denies any history of HTN. Management as per primary care. (6) Tobacco abuse Status: Acute Plan to address problem: Patient says stopped smoking 5 years ago. Subjective Date of service: 10/16/21 Interval history: Patient is 66 years old female with history of COPD on home oxygen. Patient presented to the ER complaining of shortness of breath and difficulty breathing for the last few days. Patient denied any fever or chills. No chest pain. Patient stated that she is taking her inhaler but is not helping. Cough productive of Light yellow sputum. Patient has one episode coughing up some blood this morning. She did not notice any hemoptysis after that. Patient denies htn, diabetes, Gerd or arthritis. She gets headaches some times not Migraines. Patient has history of smoking 1 pack a day x 20 years. Stopped smoking 5 years ago. Denies alcohol or drug abuse. 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 Denies any exposure to chemicals or Irritants. . Has two children. Allergic to Codeine. Patient has history left mid lung surgery for lung lesion. According to the patient it is benign. Patient used to follow with Dr. Patel and Dr. SAMAYOA pulmonologists. Now following with [facility]. Patient awake. Says slightly breathing better than yesterday. Resting on 3 litres O2. O2 saturation 99%. No acute respiratory distress at rest. ABG on 28% FIO2 ABG pH 7.371 pH Units (7.350-7.450) 10/14/21 15:08 ABG pCO2 50.2 mm Hg 10/14/21 15:08 ABG pO2 108.7 mm Hg (80.0-90.0) H 10/14/21 15:08 ABG O2 Saturation 97.8 % (95.0-99.0) 10/14/21 15:08 Recommend to decrease O2 to 2 litres. Patient afebrile. Has leukocytosis 18.1,000. Blood pressure 136/73, Pulse 98, Respirations 20. Patients HGB 9.8, HCT 31.8, 10/16/21 Patients BUN 20, Creatinine .6, Na+ 142, K+ 4.1, Glucose 145 other castelan not remarkable. 10/16/21. Patients serum Iron is low 30. Patients troponin level .01. Patients B12 level 1147. Chest xray done 10/14/21 reported COPD. No acute pulmonary or pleural disease. Patient presently on I/V solumedrol, I/V Levaquine, Albuterol/atrovent aerosol treatment q 6 hours, Albuterol inhaler prn for shortness of breath.Famotidine and robitussin PRN for cough. If no active bleeding, recommend DVT prophylaxis with S/C Lovenox or S/C Heparin. Objective Vital Signs - 12hr 10/15/21 22:00 O2 Sat by Pulse 99 Oximetry Constitutional: no acute distress, alert Eyes: non-icteric ENT: oropharynx moist Neck: supple, no lymphadenopathy Effort: mildly labored Ascultation: Bilateral: other (Prolonged expiratory phase.) Cardiovascular: regular rate and rhythm Gastrointestinal: normoactive bowel sounds, soft, non-tender Integumentary: normal Extremities: no cyanosis, no edema Neurologic: normal mental status, non-focal exam, pupils equal and round, CN II- XII normal Psychiatric: anxious CBC and BMP: 10/16/21 04:30 10/16/21 04:30 ABG, PT/INR, D-dimer: ABG ABG pH 7.371 pH Units (7.350-7.450) 10/14/21 15:08 ABG pCO2 50.2 mm Hg 10/14/21 15:08 ABG pO2 108.7 mm Hg (80.0-90.0) H 10/14/21 15:08 ABG O2 Saturation 97.8 % (95.0-99.0) 10/14/21 15:08 PT/INR, D-dimer PT 12.5 Sec. (12.2-14.9) 10/14/21 12:53 INR 0.85 (0.87-1.13) L 10/14/21 12:53 Abnormal lab findings: Abnormal Labs 10/14/21 10/14/21 10/14/21 12:53 12:53 12:53 WBC 19.5 H Hgb 9.8 L MCV 76 L MCH 25 L RDW 18.0 H Lymph % (Auto) 6.1 L Seg Neutrophils % 89.8 H Seg Neuts % (Manual) Lymphocytes % (Manual) Seg Neutrophils # 17.5 H Seg Neutrophils # Man Lymphocytes # (Manual) INR 0.85 L ABG pO2 ABG HCO3 ABG Hemoglobin BUN 20 H Creatinine Glucose 136 H Iron Vitamin B12 10/14/21 10/15/21 10/15/21 15:08 04:47 04:47 WBC 19.3 H Hgb 9.7 L MCV 78 L MCH 24 L RDW 17.8 H Lymph % (Auto) Seg Neutrophils % Seg Neuts % (Manual) 95.0 H Lymphocytes % (Manual) 5.0 L Seg Neutrophils # 19.2 H Seg Neutrophils # Man 18.3 H Lymphocytes # (Manual) 1.0 L INR ABG pO2 108.7 H ABG HCO3 28.5 H ABG Hemoglobin 9.6 L BUN 20 H Creatinine 0.5 L Glucose 154 H Iron Vitamin B12 10/15/21 10/15/21 10/16/21 07:13 07:13 04:30 WBC 18.1 H Hgb 9.8 L MCV 77 L MCH 24 L RDW 18.1 H Lymph % (Auto) Seg Neutrophils % Seg Neuts % (Manual) 88.0 H Lymphocytes % (Manual) 9.0 L Seg Neutrophils # Seg Neutrophils # Man 15.9 H Lymphocytes # (Manual) INR ABG pO2 ABG HCO3 ABG Hemoglobin BUN Creatinine Glucose Iron 30 L Vitamin B12 1147 H 10/16/21 04:30 WBC Hgb MCV MCH RDW Lymph % (Auto) Seg Neutrophils % Seg Neuts % (Manual) Lymphocytes % (Manual) Seg Neutrophils # Seg Neutrophils # Man Lymphocytes # (Manual) INR ABG pO2 ABG HCO3 ABG Hemoglobin BUN 20 H Creatinine Glucose 145 H Iron Vitamin B12
[2021-10-16] MEDS: DARIFENACIN HYDROBROMIDE 7.5 MG PO SCH (09:23)
[2021-10-16] MEDS: guaiFENesin 100 MG/5 ML ORAL LIQD PO PRN (09:26)
[2021-10-16] MEDS: ASPIRIN 81 MG TAB CHEW PO SCH (09:26)
[2021-10-16] MEDS: FAMOTIDINE 20 MG TAB PO SCH (09:26)
[2021-10-16] MEDS: dilTIAZem CD 120 MG CAP PO SCH (09:27)
[2021-10-16] MEDS: IPRATROPIUM/ALBUTEROL SULFATE 3 ML AMPUL.NEB IH SCH (09:43)
[2021-10-16] MEDS ORDERED: FERROUS SULFATE 325 MG TAB PO SCH (10:00)
[2021-10-16] MEDS ORDERED: IPRATROPIUM/ALBUTEROL SULFATE 3 ML AMPUL.NEB IH SCH (14:00)
[2021-10-16 14:13] VITALS: BP 138/74
--- NOTE | 2021-10-16 14:23 | Discharge Summary ---
Providers - Providers Date of Admission: 10/14/21 17:25 Attending physician: TRINITY MONET MD 10/14/21 23:37 Consult to Physician [CONS] Routine Comment: Consulting Provider: JAMES DANG Physician Instructions: Reason For Exam: Acute resp failure with hypoxia Primary care physician: SHANTI FOSTER Hospitalization Reason for admission: shortness of breath Condition: Stable Hospital course: History of present illness: Patient is 66 years old female with history of COPD on home oxygen. Patient presented to the ER complaining of shortness of breath and difficulty breathing for the last few days. Patient denied any fever or chills. No chest pain. Patient stated that she is taking her inhaler but is not helping. Cough productive of mucoid sputum. No fever or chills. Patient pronounced to the [facility] Hospital course Patient was admitted for acute exacerbation of COPD possibly precipitated by community-acquired pneumonia. Chest x-ray findings consistent with possible right lower lobe pneumonia. Patient also had a leukocytosis to 19,000. Patient was initiated on antibiotic therapy with Levaquin IV, Solu-Medrol IV, inhaler therapy. She was treated with these medication and had subsequent improvement of her pulmonary function. At the time of discharge she was down to her home oxygen requirement of 2 to 3 L/min. She will be discharged home with instructions to follow-up outpatient with her [place] physician. She will be given prescription for remainder of Levaquin course, Decadron steroid taper, Symbicort inhaler, Robitussin cough syrup as needed, Pepcid, iron supplement. Medications were e-scribed to her pharmacy. She was advised to resume her home medications as prescribed by her [place] doctor except for the Dosepak that she was recently prescribed. She is advised to follow-up outpatient with her [place] physicians, particularly her [place] home comfort advisor. # Acute respiratory failure with hypoxia Current Visit: Yes Status: Acute Plan to address problem: Patient was hypoxic at the time of admission Oxygen supplementation as necessary Respiratory assessment and treatment on 3l /min O2 # SEPSIS POA #Community acquired pneumonia Current Visit: No Status: Acute Plan to address problem: Patient has leukocytosis, multifactorial from steroid admin and PNA Clinical picture consistent with copd and pna. - Appears to have focal RLL consolidation on cxr - Levaquin IV # Acute exacerbation of COPD with asthma Current Visit: Yes Status: Acute Plan to address problem: IV antibiotics, IV Solu-Medrol and duo nebs [id number] and as needed Pulmonary consult requested Patient is ex-smoker # Hypertension Current Visit: Yes Status: Chronic Qualifiers: Hypertension type: primary hypertension Qualified Code(s): I10 - Essential (primary) hypertension Plan to address problem: Continue antihypertensives and adjust medications # Anemia Current Visit: Yes Status: Chronic Qualifiers: Anemia type: unspecified type Qualified Code(s): D64.9 - Anemia, unspecified Plan to address problem: Anemia work-up Iron levels, folic acid and B12 requested # Hyperkalemia Current Visit: No Status: Acute # DVT prophylaxis Current Visit: No Status: Acute Plan to address problem: On anticoagulation GI prophylaxis # Advance care planning Current Visit: Yes Status: Acute Plan to address problem: Disease education conducted, care plan discussed, diagnosis discussed, prognosis discussed. Patient is full code. Patient acknowledges understanding and agreement with care plan. +30 minutes. Disposition: HOME / SELF CARE / HOMELESS Final Discharge Diagnosis (Prints w/discharge instructions): acute COPD exacerbation Time spent for discharge: 35 Core Measure Documentation - Palliative Care Palliative Care/ Comfort Measures: Not Applicable - Core Measures Any of the following diagnoses?: none Exam - Physical Exam Narrative exam: General appearance: Present: severe distress, well-nourished - EENT Eyes: Present: PERRL ENT: hearing intact, clear oral mucosa - Neck Neck: Present: supple, normal ROM - Respiratory Respiratory effort: normal Respiratory: poor air movement, interval improvement. - Cardiovascular Heart rate: 78 Rhythm: regular Heart Sounds: Present: S1 & S2. Absent: rub, click - Extremities Extremities: pulses symmetrical, No edema Peripheral Pulses: within normal limits - Abdominal General gastrointestinal: Present: soft, non-tender, non-distended, normal bowel sounds Female genitourinary: Present: normal - Integumentary Integumentary: Present: clear, warm, dry - Musculoskeletal Musculoskeletal: gait normal, strength equal bilaterally - Psychiatric Psychiatric: appropriate mood/affect, intact judgment & insight - Neurologic Neurologic: CNII-XII intact, moves all extremities - Constitutional Vitals: Temp Pulse Resp BP Pulse Ox 97.7 F 111 H 22 138/74 98 10/16/21 12:11 10/16/21 12:11 10/16/21 12:11 10/16/21 12:11 10/16/21 12:11 Plan Follow up with: SHANTI FOSTER MD [Primary Care Provider] - 7 Days Prescriptions: dexAMETHasone [Decadron] 4 mg PO DAILY 9 Days #29 tab Ferrous Sulfate [Feosol 325 MG tab] 325 mg PO QDAY 30 Days #30 tablet levoFLOXacin [Levaquin TAB] 500 mg PO QDAY 3 Days #3 tablet Famotidine [Pepcid] 20 mg PO BID 30 Days #60 tablet guaiFENesin [Robitussin] 200 mg PO Q4H PRN 30 Days #1 bottle PRN Reason: Cough Budesonide/Formoterol Fumarate [Symbicort 160-4.5 Mcg Inhaler] 2 puff IH BID 30 Days #1 pump
== END 2021-10-16 16:15 | disposition home or self-care (01) | DRG 871 ==
LOC: ED 11:42 → 3A 17:25
PROVIDERS: ADMIT Internal Medicine; ATTEND Internal Medicine
PROC: 4A033R1 Measurement of Arterial Saturation, Peripheral, Percutaneous Approach (ICD-10-PCS; principal; 2021-10-14)
DX: A41.89 Other specified sepsis (principal); J96.21 Acute and chronic respiratory failure with hypoxia; J96.22 Acute and chronic respiratory failure with hypercapnia; J18.9 Pneumonia, unspecified organism; J44.1 Chronic obstructive pulmonary disease with (acute) exacerbation; J44.0 Chronic obstructive pulmonary disease with (acute) lower respiratory infection; I10 Essential (primary) hypertension; K21.9 Gastro-esophageal reflux disease without esophagitis; M19.90 Unspecified osteoarthritis, unspecified site; E78.5 Hyperlipidemia, unspecified; G43.909 Migraine, unspecified, not intractable, without status migrainosus; D64.9 Anemia, unspecified; E87.5 Hyperkalemia; Z88.5 Allergy status to narcotic agent; Z99.81 Dependence on supplemental oxygen
CPT/HCPCS: 36415; 71045; 80048; 80053; 82607; 82747; 82803; 83550; 84484; 85007; 85025; 85610; 85730; 87040; 93005; 94640; 94760; G0378; J3490; J1956; J2930